=== PATIENT | female | born 1970 | race Caucasian/White ===

== ENCOUNTER 2021-11-26 10:36 | Outpatient (CLI) | payer OTHER, SELFPAY ==
--- NOTE | 2021-11-26 10:45 | CRLHL7_ITS ---
For Patients: As a result of the Cures Act, medical imaging exams and procedure reports are released immediately into your electronic medical record. You may view this report before your referring provider. If you have questions, please contact your health care provider. BILATERAL MAMMOGRAM WITH COMPUTER-AIDED DETECTION AND TOMOSYNTHESIS TECHNIQUE: CC and MLO views were obtained. These mammographic images have been obtained using full-field digital technique. These mammographic images were interpreted with the benefit of computer-aided detection. Breast Tomosynthesis was used in this interpretation. COMPARISON FILM: 11/07/2020, 09/20/2018. FINDINGS: There are scattered areas of fibroglandular density IMPRESSION: There is no radiographic evidence for malignancy. ASSESSMENT: BI-RADS Category 1: Negative RECOMMENDATION: Routine screening mammogram in 1 year. A lay language report of this examination will be provided to the patient. Remigio Saeed M.D. Diagnostic Radiologist [email or web address] RITA/duncan / be/Dictated by: Remigio Saeed MD @ 11/26/2021 12:18:00 PM (Electronically Signed)
== END 2021-11-26 10:37 | disposition home or self-care (01) ==
LOC: MAMMO 10:37
PROVIDERS: PCP Family Medicine; Visit Provider Family Medicine
DX: Z12.31 Encounter for screening mammogram for malignant neoplasm of breast (principal)
CPT/HCPCS: 77063; 77067

== ENCOUNTER 2021-12-18 15:06 | Outpatient (CLI) | payer OTHER, SELFPAY ==
[2021-12-18 11:14] LABS: Cholesterol* 195 mg/dL (90-199); Glucose* 99 mg/dL (60-115)
[2021-12-18 11:15] LABS: HDL Cholesterol* 39 mg/dL (>=50); LDL Cholesterol Calculated 130 mg/dL (<100); Triglycerides* 132 mg/dL (40-149)
[2021-12-18 11:34] LABS: Vitamin D 25 Hydroxy* 47 ng/mL (30-80)
[2021-12-18 12:33] LABS: Free T4 Free Thyroxine* 0.92 ng/dL (0.70-1.85)
== END 2021-12-18 15:07 | disposition home or self-care (01) ==
PROVIDERS: PCP Family Medicine; Visit Provider Family Medicine
DX: Z01.419 Encounter for gynecological examination (general) (routine) without abnormal findings (principal); E03.9 Hypothyroidism, unspecified; E55.9 Vitamin D deficiency, unspecified; Z13.1 Encounter for screening for diabetes mellitus; R53.83 Other fatigue; G25.81 Restless legs syndrome; E66.9 Obesity, unspecified
CPT/HCPCS: 80061; 82306; 82947; 84439; 84443

== ENCOUNTER 2022-02-24 08:27 | Outpatient (CLI) | payer OTHER, SELFPAY ==
[2022-02-24 21:58] LABS: Free T4 Free Thyroxine* 1.47 ng/dL (0.70-1.85)
== END 2022-02-24 08:28 | disposition home or self-care (01) ==
PROVIDERS: PCP Family Medicine; Visit Provider Family Medicine
DX: E89.0 Postprocedural hypothyroidism (principal); R53.83 Other fatigue
CPT/HCPCS: 84439; 84443

== ENCOUNTER 2022-03-02 15:59 | Outpatient (CLI) | payer OTHER, SELFPAY ==
--- OUTSIDE RECORDS SUMMARY | 2022-03-02 16:08 | XMS_ITS | Encounter Summary ---
:[address] [facility] Address [address] [place] [address] Care Team Providers Name Role Phone Unavailable Primary Care Provider Unavailable Encounter Details Date Type Department Care Team Description 05/16/2020 Hospital Encounter Department of Kriss, Hypoth yroidism Primary Laboratory Claritza Venegas Medicine in M.B., B.[facility] [place], [address] [place], [place] [address] ANDREA GRANADOS [phone] (Work) [phone] Social History Tobacco Use Types Packs/Day Years Used Date Smoking Tobacco: Never Smokeless Tobacco: Never Alcohol Use Standard Drinks/Week Comments Yes 0 (1 standard drink = 0.6 oz pure alcoho l) 1 glass of wine monthly Alcohol Habits Answer Date Recorded How often do you have a drink containing alcohol? Monthly or less 06/09/2021 How many drinks containing alcohol do you have on a 1 or 2 06/09/2021 typical day when you are drinking? How often do you have six or more drinks on one Never 06/09/2021 occasion? Social Isolation Answer Date Recorded In a typical week, how many times do you More than three madison es a week 06/09/2021 talk on the phone with family, friends, or neighbors? How often do you get together with friends Once a week 06/09/2021 or relatives? How often do you attend yarsanism or Patient refused 2021 oriental orthodox services? Do you belong to any clubs or No 06/09/2021 organizations such as yarsanism groups, unions, fraternal or athletic groups, or school groups? How often do you attend meetings of the Never 06/09/2021 clubs or organizations you belong to? Are you now , , , Living with partner 06/09/2021 , never or living with a partner? Physical Activity Answer Date Recorded On average, how many days per week do you engage in moderate to 3 days 06/09/2021 strenuous exercise (like walking fast, running, jogging, dancing, swimming, biking, or other activities that cause a light or heavy sweat)? On average, how many minutes do you engage in exercise at is 20 min 06/09/2021 level? Stress Answer Date Recorded Do you feel stress - tense, restless, nervous, or anxious, R ather much 06/09/2021 or unable to sleep at night because your mind is troubled all the time - these days? Financial Resource Strain Answer Date Recorded How hard is it for you to pay for the very basics like Not h bhavana at all 06/09/2021 food, housing, medical care, and heating? Intimate Partner Violence Answer Date Recorded Within the last year, have you been afraid of your partner o r No 06/09/2021 ex-partner? Within the last year, have you been humiliated or emotionall y No 06/09/2021 abused in other ways by your partner or ex-partner? Within the last year, have you been kicked, hit, slapped, or No 06/09/2021 otherwise physically hurt by your partner or ex-partner? Within the last year, have you been raped or forced to have any No 06/09/2021 kind of sexual activity by your partner or ex-partner? Food Insecurity Answer Date Recorded Within the past 12 months, you worried that your food would Never true 06/09/2021 run out before you got money to buy more. Within the past 12 months, the food you bought just didn't N ever true 06/09/2021 last and you didn't have money to get more. Transportation Needs Answer Date Recorded In the past 12 months, has lack of transportation kept you f rom No 06/09/2021 medical appointments or from getting medications? In the past 12 months, has lack of transportation kept you f rom No 06/09/2021 meetings, work, or getting things needed for daily living? Housing Stability Answer Date Recorded In the last 12 months, was there a time when you were not ab le No 06/09/2021 to pay the mortgage or rent on time? In the last 12 months, how many places have you lived? 1 06/09/2021 In the last 12 months, was there a time when you did not hav e a No 06/09/[address] to sleep or slept in a penitentiary (including now)? Education Answer Date Recorded What is the highest level of school Master's degree (e.g., M A, MS, 12/27/2018 you have completed or the highest Phil, MEd, PATIENT ESCORT, FALGUNI) degree you have received? 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 calcium carbonate Take 1,000 mg by 0 06/06/2019 (OS-ANUJ) 1,250 mg (500 mouth every 8 mg calcium) tablet (eight) hours. cholecalciferol, vitamin Take 1,000 Units by 0 D3, 25 mcg (1,000 Unit) mouth daily. tablet SUMAtriptan (IMITREX) TAKE 1/2 TO 1 TAB 5 019 100 mg tablet AT START OF HEADACHE MAY REPEAT ONCE IN 2 HOURS USE NO MORE THAN TWO DAYS A WEEK UNABLE TO FIND Med Name: Stool 0 softer daily. gabapentin (NEURONTIN) Take 1 capsule (100 270 capsule 3 01/06/2022 100 mg capsule mg total) by mouth 3 (three) times a day. levothyroxine Take 1 tablet (100 90 tablet 3 03/13/2020 (SYNTHROID, LEVOTHROID) mcg total) by mouth 100 mcg tablet every morning before breakfast. topiramate (TOPAMAX) 100 Take 1 tablet (100 180 tablet 3 07/07/2021 mg tablet mg total) by mouth 2 (two) times a day. documented as of this encounter Plan of Treatment Not on filedocumented as of this encounter Procedures Procedure Name Priority Date/Time Associated Diagnosis Comme nts THYROID-STIMULATIN Routine 05/16/2020 10:02 Hypothyroidism Radha everett Results for this G AM AGRICULTURAL SPECIALIST procedure are i n HORMONE-SENSITIVE the result s (S-TSH) section. documented in this encounter Results S-TSH (Thyroid-Stimulating Hormone - Sensitive) (05/16/2020 10:02 AM AGRICULTURAL SPECIALIST) P athologist Signature TSH, Sensitive 2.5 0.3 - 4.2 05/16/2020 [place] mIU/L 10:32 AM AGRICULTURAL SPECIALIST Specimen Anatomical Collection Method Collection Time Receive d Time (Source) Location / / Volume Laterality Blood (Blood, 05/16/2020 10:02 05/16/2020 Venous) AM AGRICULTURAL SPECIALIST 10:04 AM AGRICULTURAL SPECIALIST Claritza Fallon, B.Ch. LAB BLOOD ADD-ON Performing Organization Address City/State/ZIP Code Phon e Number [facility]- [address] [place] [address] [place] [address] System in [place] [address] documented in this encounter Visit Diagnoses Diagnosis Hypothyroidism Primary documented in this encounter
--- OUTSIDE RECORDS SUMMARY | 2022-03-02 16:08 | XMS_ITS | Encounter Summary ---
:1970 Author Organization [facility] Address [address] [place] [address] Care Team Providers Name Role Phone Unavailable Primary Care Provider Unavailable Encounter Details Date Type Department Care Team Description 06/10/2021 Hospital Encounter Department of Candi Ornelas Restless Leg Syndrome Laboratory Medicine Alex Jackson, in [place] [id number] [place] [phone] Social History Tobacco Use Types Packs/Day Years [...] or relatives? How often do you attend sabianist or Patient refused 2021 synagogue services? Do you belong to any clubs or No 06/09/2021 organizations such as sabianist groups, unions, fraternal or athletic groups, or [...] place to sleep or slept in a usp (including now)? Education Answer Date Recorded What is the highest level of school Master's degree (e.g., M A, MS, 12/27/2018 you have completed or the highest Phil, MEd, AUDIT TECH, FALGUNI) degree you have received? 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 tablet docusate sodium (COLACE) Take 100 mg by 0 100 mg capsule mouth. pregabalin (LYRICA) 100 Take 1 capsule (100 180 capsule 1 06/17/2022 mg capsule mg total) by mouth 2 (two) times a day. SUMAtriptan (IMITREX) TAKE 1/2 TO 1 TAB 5 019 100 mg tablet AT START OF HEADACHE MAY REPEAT ONCE IN 2 HOURS USE NO MORE THAN TWO DAYS A WEEK SUMAtriptan (IMITREX) 25 Take 1 tablet (25 9 tablet 3 06/202106/10/2022 mg tablet mg total) by mouth as needed for migraine. May repeat dose once in 2 hours if migraine unresolved. Do not exceed 200 mg in 24 hours. UNABLE TO FIND Med Name: Stool 0 softer daily. gabapentin (NEURONTIN) Take 1 capsule (100 270 capsule 3 01/06/2022 100 mg capsule mg total) by mouth 3 (three) times a day. gabapentin enacarbil Take 1 tablet (600 30 tablet 11 022 06/17/2021 (HORIZANT) 600 mg ER mg total) by mouth tablet daily with dinner. levothyroxine TAKE 1 TABLET BY 90 tablet 3 02/27/202112/07 (SYNTHROID, LEVOTHROID) MOUTH EVERY MORNING 100 mcg tablet BEFORE BREAKFAST topiramate (TOPAMAX) 100 Take 1 tablet (100 180 tablet 3 07/07/2021 mg tablet mg total) by mouth 2 (two) times a day. documented as of this encounter Plan of Treatment Not on filedocumented as of this encounter Procedures Procedure Name Priority Date/Time Associated Diagnosis Comme nts FERRITIN, S Routine 06/10/2021 10:55 AM Restless Leg Syndrome Results for this HANDLE BENDER procedure are i n the results section . documented in this encounter Results Ferritin (06/10/2021 10:55 AM HANDLE BENDER) P athologist Signature Ferritin, S 249 11 - 328 06/10/2021 [place] mcg/L 1:37 PM HANDLE BENDER Comment: Biotin has been identified by the gigi gregory as a potential interfering substance. ??Higher concentr ations of biotin may be found in multivitamins, hair/nail supple ments, and workout supplements. ??If the result does not ma [facility] clinical observations, repeat testing after patient refrains fr om the use of supplements for at least 12 hours. Specimen Anatomical Collection Method Collection Time Receive d Time (Source) Location / / Volume Laterality Blood (Blood, 06/10/2021 10:55 06/10/2021 Venous) AM HANDLE BENDER 12:55 PM HANDLE BENDER Candi Ornelas M.D., M.P.H. LAB BLOOD ADD-ON Performing Organization Address City/State/ZIP Code Phon e Number [facility]- [address] [place] [address] [facility] [place] [address] System in [place] [address] documented in this encounter Visit Diagnoses Diagnosis Restless Leg Syndrome documented in this encounter
--- OUTSIDE RECORDS SUMMARY | 2022-03-02 16:08 | XMS_ITS | Encounter Summary ---
:1970 Author Organization [facility] Address [address] [place] [address] Care Team Providers Name Role Phone Unavailable Primary Care Provider Unavailable Encounter Details Date Type Department Care Team Description 03/13/2020 Orders Only Division of Keri Monterroso Primary Endocrinology in Vasyl Camarena, (Prima ry Dx) [place], [place] B.Ch. [address] [facility] [address] [place] [phone] Social History Tobacco Use Types Packs/Day Years [...] or relatives? How often do you attend holiness or Patient refused 2021 judaism services? Do you belong to any clubs or No 06/09/2021 organizations such as holiness groups, unions, fraternal or athletic groups, or [...] minutes do you engage in exercise at th is 20 min 06/09/2021 level? Stress Answer [...] highest level of school Master's degree (e.g., Victorina Hernandez, MS, 12/27/2018 you have completed or the highest Phil, MEd, DIRECTOR OF AVIATION, FALGUNI) degree you have received? 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
--- OUTSIDE RECORDS SUMMARY | 2022-03-02 16:08 | XMS_ITS | Encounter Summary ---
:1970 Author Organization [facility] Address [address] [place] [address] Care Team Providers Name Role Phone Unavailable Primary Care Provider Unavailable Reason for Visit Reason Comments Med Refill Encounter Details Date Type Department Care Team Description 01/05/2022 Refill Department of Neurology in Candi Ornelas M.D., Med Refill [place], [place] [facility] [address] [facility] [address] [place] [address] [place] [address] (Wo rk) Social History Tobacco Use Types Packs/Day Years [...] or relatives? How often do you attend roman catholic or Patient refused 2021 restoration services? Do you belong to any clubs or No 06/09/2021 organizations such as roman catholic groups, unions, fraternal or athletic groups, or [...] place to sleep or slept in a skilled nursing (including now)? Education Answer Date Recorded What is the highest level of school Master's degree (e.g., Victorina Hernandez, MS, 12/27/2018 you have completed or the highest Phil, MEd, BICYCLE DESIGNER, FALGUNI) degree you have received? 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
--- OUTSIDE RECORDS SUMMARY | 2022-03-02 16:08 | XMS_ITS | Encounter Summary ---
:1970 Author Organization [facility] Address [address] [place] [address] Care Team Providers Name Role Phone Unavailable Primary Care Provider Unavailable Reason for Visit Reason Comments Med Refill Encounter Details Date Type Department Care Team Description 12/04/2021 Refill Division of Endocrinology in Claritza Toth Med Refill [place], [place] Vasyl Venegas, B.Ch. [address] [facility] [address] [place] [address] [place] [address] [phone] (Wo rk) Social History Tobacco Use Types [...] or relatives? How often do you attend mormon or Patient refused 2021 yazidi services? Do you belong to any clubs or No 06/09/2021 organizations such as mormon groups, unions, fraternal or athletic groups, or [...] have completed or the highest Phil, MEd, FORESTRY SUPERVISOR, FALGUNI) degree you have received? 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 - 12/08/2021 10:45 AM CDT Will give 3 months but no refills. She needs to get from her local care team thanks Telephone Encounter - Su Martin R.N. - 12/07/2021 1:21 PM CDT Prescription renewal request did not meet nurse protocol because: patient has not been seen within the past 12 months in the Department of Endocrinology . Prescription refill request sent to Endocrine provider for further review. Protocol utilized: Prescription Renewal Request for Medications: Division of Endocrinology, Diabetes, Metabolism and Nutrition. documented in this encounter Plan of Treatment Not on filedocumented as of this encounter Visit Diagnoses Not on filedocumented in this encounter
--- OUTSIDE RECORDS SUMMARY | 2022-03-02 16:08 | XMS_ITS | Encounter Summary ---
:1970 Author Organization [facility] Address [address] [place] [address] Care Team Providers Name Role Phone Unavailable Primary Care Provider Unavailable Reason for Referral Outpatient (Routine) - Authorized Specialty Diagnoses / Procedures Referred By Contact Refer red To Contact Neurology Candi Ornelas M.D ., M.P.H. [facility] [address] [phone] Referral ID Status Reason Start Date Expiration Date Visits V isits Requested Authorized [id number] Authorized 06/10/2021 06/10/2022 1 1 AL DESIGNER Reason for Visit Reason Comments Seizures Sleeping Problem Restless Legs Last visit 04/23/20 Outpatient (Routine) - Closed Specialty Diagnoses / Procedures Referred By Contact Refer red To Contact Neurology Candi Ornelas M.D ., M.P.H. [facility] Region [address] [place] [phone] Referral ID Status Reason Start Date Expiration Date Visits Requ ested Visits Authorized [id number] Closed 04/23/2020 04/23/2021 1 1 Encounter Details Date Type Department Care Team Description 06/10/2021 Office Visit Department of Candi Ornelas, Restless L eg Syndrome Neurology in [place], M.P.H. (Primary Dx) [address] [phone] Social History Tobacco Use Types Packs/Day Years [...] or relatives? How often do you attend latter day or Patient refused 2021 taoism services? Do you belong to any clubs or No 06/09/2021 organizations such as latter day groups, unions, fraternal or athletic groups, or [...] place to sleep or slept in a residential (including now)? Education Answer Date Recorded What is the highest level of school Master's degree (e.g., M A, MS, 12/27/2018 you have completed or the highest Phil, MEd, INTERVENTIONAL CARDIOLOGIST, FALGUNI) degree you have received? 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 - 06/10/2021 10:15 AM CST Sleep [facility] SUBJECTIVE HISTORY OF PRESENT ILLNESS Patient presents with complaints of restless feet. She says that shortly after going to bed her feether restless and she has to move them or get up and walk. She says she may get the sleep and then attwo or 3:00 a.m. wake up and have the same compulsion. The gabapentin 100 mg, three q.h.s. helps buttraci says if she took four she felt irritable and crabby the next day. I spent a long time reviewing treatment options for a her restless leg symptoms. Reviewed the dopamine agonists and the of two delta calcium channel likens as well as benzodiazepines and opioid options. Her last ferritin was certainly adequate but it was two years ago. Last ferritin was 194 two years ago. MEDICAL HISTORY No past medical history on file. SURGICAL HISTORY No past surgical history on file. CURRENT MEDICATIONS Current Outpatient Medications: ??? B complex-vitamins (BALANCE B-50) tablet, Take 1 tablet by mouth daily., Disp: , Rfl: ??? calcium carbonate (OS-ANUJ) 1,250 mg (500 mg calcium) tablet, Take 1,000 mg by mouth every 8 (eight) hours., Disp: , Rfl: ??? cholecalciferol, vitamin D3, 25 mcg (1,000 Unit) tablet, Take 1,000 Units by mouth daily., Disp:, Rfl: ??? docusate sodium (COLACE) 100 mg capsule, Take 100 mg by mouth., Disp: , Rfl: ??? gabapentin (NEURONTIN) 100 mg capsule, Take 1 capsule (100 mg total) by mouth 3 (three) times a day., Disp: 270 capsule, Rfl: 3 ??? levothyroxine (SYNTHROID, LEVOTHROID) 100 mcg tablet, TAKE 1 TABLET BY MOUTH EVERY MORNING BEFORE BREAKFAST, Disp: 90 tablet, Rfl: 3 ??? SUMAtriptan (IMITREX) 100 mg tablet, TAKE 1/2 TO 1 TAB AT START OF HEADACHE MAY REPEAT ONCE IN 2HOURS USE NO MORE THAN TWO DAYS A WEEK, Disp: , Rfl: 5 ??? UNABLE TO FIND, Med Name: Stool softer daily., Disp: , Rfl: ??? gabapentin enacarbil (HORIZANT) 600 mg ER tablet, Take 1 tablet (600 mg total) by mouth daily with dinner., Disp: 30 tablet, Rfl: 11 ??? SUMAtriptan (IMITREX) 100 mg tablet, Take 1 tablet (100 mg total) by mouth once as needed for migraine (headache) for up to 1 dose. May repeat one time after 2 hours if needed., Disp: 9 tablet, Rfl: 5 ??? SUMAtriptan (IMITREX) 25 mg tablet, Take 1 tablet (25 mg total) by mouth as needed for migraine.May repeat dose once in 2 hours if migraine unresolved. Do not exceed 200 mg in 24 hours., Disp: 9 tablet, Rfl: 3 ??? topiramate (TOPAMAX) 100 mg tablet, Take 1 tablet (100 mg total) by mouth 2 (two) times a day., Disp: 180 tablet, Rfl: 3 ALLERGIES Allergies Allergen Reactions ??? Cortisone Other (see comments) ??? Betamethasone Other (see comments) Severe Stomach cramps ??? Nickel Rash ??? Corticosteroids (Glucocorticoids) Rash Turned bright red all over body ??? Green Tea [place] Extract Rash Burning rash ??? Naproxen Rash rash FAMILY HISTORY No family history on file. SOCIAL HISTORY Social History Socioeconomic History ??? Marital status: Spouse name: Not on file ??? Number of children: Not on file ??? Years of education: Not on file ??? Highest education level: Master's degree (e.g., MA, MS, Phil, MEd, INTERVENTIONAL CARDIOLOGIST, FALGUNI) Occupational History ??? Not on file Tobacco Use ??? Smoking status: Never Smoker ??? Smokeless tobacco: Never Used Substance and Sexual Activity ??? Alcohol use: Yes Comment: 1 glass of wine monthly ??? Drug use: Not on file ??? Sexual activity: Not on file Other Topics Concern ??? Not on file Social History Narrative ??? Not on file Social Determinants of Health Financial Resource Strain: Low Risk ??? Difficulty of Paying Living Expenses: Not hard at all Food Insecurity: No Food Insecurity ??? Worried About Running Out of Food in the Last Year: Never true ??? Ran Out of Food in the Last Year: Never true Transportation Needs: No Transportation Needs ??? Lack of Transportation (Medical): No ??? Lack of Transportation (Non-Medical): No Physical Activity: Insufficiently Active ??? Days of Exercise per Week: 3 days ??? Minutes of Exercise per Session: 20 min Stress: Stress Concern Present ??? Feeling of Stress : Rather much Social Connections: Unknown ??? Frequency of Communication with Friends and Family: More than three times a week ??? Frequency of Social Gatherings with Friends and Family: Once a week ??? Attends Confucianist Services: Patient refused ??? Active Member of Clubs or Organizations: No ??? Attends Club or Organization Meetings: Never ??? Marital Status: Living with partner Intimate Partner Violence: Not At Risk ??? Fear of Current or Ex-Partner: No ??? Emotionally Abused: No ??? Physically Abused: No ??? Sexually Abused: No Housing Stability: Low Risk ??? Unable to Pay for Housing in the Last Year: No ??? Number of Places Lived in the Last Year: 1 ??? Unstable Housing in the Last Year: No OBJECTIVE PHYSICAL EXAMINATION BP 111/80 (BP Location: Right arm, Patient Position: Sitting, Cuff Size: Regular) Pulse 74 Wt 85.6 kg SpO2 98% Comment: room air Lungs: Clear Neurological Exam Cognition: Alert and oriented x 4. Cranial Nerves: II-XII intact and symmetric. Gait: Normal. ASSESSMENT / PLAN Encounter Diagnoses Name Primary? Restless Leg Syndrome Yes Patient seems have restless leg symptoms and I wonder if we could not try extended-release gabapentin and get better control without waking up in the middle the night. I told her that I would really like to try this again because the options otherwise usually result in more side effects than the gabapentin. So were going to do one month of Horizant and see how she does in if she likes that then I will give her three months worth. If this does not work then I think will probably try pramipexole or a Relpax. I personally spent 30 minutes in care of the patient today. Time includes both non face to face and face to face patient care. Patient was counseled regarding weight as a risk factor for sleep disordered breathing. The patient was counseled on driving while drowsy. Candi Ornelas M.D., M.P.H. AL DESIGNER documented in this encounter Plan of Treatment Scheduled Referrals Name Type Priority Associated Diagnoses Order S [facility] Neurology office Outpatient Referral Routine Expe cted: visit (clinic) 09/07/2021 (Approximate), Expires: 09/07/2022 documented as of this encounter Results Ferritin (06/10/2021 10:55 AM VISUAL DESIGNER) P athologist Signature Ferritin, S [phone] - 328 06/10/2021 OWAT mcg/L 1:37 PM VISUAL DESIGNER Comment: Biotin has been identified by the [...] Blood (Blood, 06/10/2021 10:55 06/10/2021 Venous) AM VISUAL DESIGNER 12:55 PM VISUAL DESIGNER Candi Ornelas M.D., M.P.H. LAB BLOOD ADD-ON Performing Organization Address City/State/ZIP Code Phon e Number [facility]- [address] [place] [address] [place] [address] System in [place] [address] documented in this encounter Visit Diagnoses Diagnosis Restless Leg Syndrome - Primary documented in this encounter
--- OUTSIDE RECORDS SUMMARY | 2022-03-02 16:08 | XMS_ITS | Encounter Summary ---
:1970 Author Organization [facility] Address [address] [place] [address] Care Team Providers Name Role Phone Unavailable Primary Care Provider Unavailable Reason for Visit Reason Comments Med Refill Encounter Details Date Type Department Care Team Description 03/24/2020 Refill Department of Neurology in Candi Ornelas M.D., Med Refill [place], [place] M.P.H. [address] [facility] [address] [place] [address] [place] [address] (Wo rk) Social History Tobacco [...] or relatives? How often do you attend christianity or Patient refused 2021 judaism services? Do you belong to any clubs or No 06/09/2021 organizations such as christianity groups, unions, fraternal or athletic groups, or [...] have completed or the highest Phil, MEd, RUBBER GOODS CUTTER FINISHER, FALGUNI) degree you have received? 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
--- OUTSIDE RECORDS SUMMARY | 2022-03-02 16:08 | XMS_ITS | Encounter Summary ---
:1970 Author Organization [facility] Address [address] [place] [address] Care Team Providers Name Role Phone Unavailable Primary Care Provider Unavailable Reason for Referral Outpatient (Routine) - Closed Specialty Diagnoses / Procedures Referred By Contact Refer red To Contact Neurology Candi Ornelas M.D ., M.P.H. [facility] [address] [phone] Referral ID Status Reason Start Date Expiration Date Visits Requ ested Visits Authorized [id number] Closed 03/29/2019 03/28/2020 1 1 L FOOD SERVICE SUPERVISOR Reason for Visit Reason Comments Follow-up Restless legs, seizures, hea daches. Last seen 12/27/18 Outpatient (Routine) - Closed Specialty Diagnoses / Procedures Referred By Contact Refer red To Contact Neurology Candi Ornelas M.D ., M.P.H. [facility] Region [address] [place] [phone] Referral ID Status Reason Start Date Expiration Date Visits Requ ested Visits Authorized [id number] Closed 12/27/2018 12/27/2019 1 1 Encounter Details Date Type Department Care Team Description 03/29/2019 Office Visit Department of Candi Ornelas, Wendyless L eg Syndrome (Primary Dx); Neurology in [place], M.P.H. 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 Do you belong to any clubs [...] place to sleep or slept in a retirement (including now)? Education Answer Date Recorded What is the highest level of school Master's degree (e.g., M A, MS, 12/27/2018 you have completed or the highest Phil, MEd, PONY ROLL FINISHER, FALGUNI) degree you have received? 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 - 03/29/2019 2:15 PM CST SUBJECTIVE CHIEF COMPLAINT / REASON FOR VISIT Coretta Monaco is a 48 y.o. female who presents for evaluation of Follow-up (Restless legs, seizures, headaches. Last seen 12/27/18). HISTORY OF PRESENT ILLNESS 48-year-old patient has a history of gelastic seizures and migraine headaches and restless leg symptoms. She has remained seizure-free now for very extended period time and certainly been seizure-free since her last visit. She is on topiramate monotherapy and I detailed my previous visit that she had seen Dr. Real he would attempt to treated with lamotrigine. I do not have any EEGs although and she had some in the [facility]. I had given her gabapentin 100 mg to take t.i.d. but it makes her too sleepy during the day so she takes all 300 at bedtime. With that she does not have symptoms of restless legs at all. I checked her ferritin him was almost 200 the last visit. She has Imitrex 100 mg and she can take half a tablet initially in increased to one tablet if some she needs to but she has had be very few headaches in is taken very little Imitrex and does not need arefill at today's visit. 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 She has some lymph nodes in her neck is going to go have those removed apparently the next 3-4 weeks. Her [place] sleepiness Score today is six and her Neurological Disorders Depression Inventory for Epilepsy score is 10 No past medical history on file. No past surgical history on file. MEDICATIONS: Current Outpatient Medications: ??? B complex-vitamins (BALANCE B-50) tablet, Take 1 tablet by mouth daily., Disp: , Rfl: ??? cholecalciferol, vitamin D3, (cholecalciferol) 1,000 Unit tablet, Take 1,000 Units by mouth daily., Disp: , Rfl: ??? gabapentin (NEURONTIN) 100 mg capsule, Take 1 capsule (100 mg total) by mouth 3 (three) times a day., Disp: 90 capsule, Rfl: 11 ??? phentermine (ADIPEX-P) 37.5 mg tablet, Take 37.5 mg by mouth daily. Patient is taking 1/2 tabletdaily., Disp: , Rfl: 0 ??? SUMAtriptan (IMITREX) 100 mg tablet, TAKE 1/2 TO 1 TAB AT START OF HEADACHE MAY REPEAT ONCE IN 2HOURS USE NO MORE THAN TWO DAYS A WEEK, Disp: , Rfl: 5 ??? topiramate (TOPAMAX) 100 mg tablet, Take 1 tablet (100 mg total) by mouth 2 (two) times a day., Disp: 180 tablet, Rfl: 3 ??? UNABLE TO FIND, Med Name: Stool softer daily., Disp: , Rfl: ??? SUMAtriptan (IMITREX) 100 mg tablet, Take 1 tablet (100 mg total) by mouth once as needed for migraine (headache) for up to 1 dose. May repeat one time after 2 hours if needed., Disp: 9 tablet, Rfl: 5 ALLERGY: Allergies Allergen Reactions ??? Cortisone Other (see comments) ??? Nickel Rash ??? Corticosteroids (Glucocorticoids) Rash Turned bright red all over body ??? Green Tea [place] Extract Rash Burning rash ??? Naproxen Rash rash No family history on file. Social History Socioeconomic History ??? Marital status: Spouse name: Not on file ??? Number of children: Not on file ??? Years of education: Not on file ??? Highest education level: Master's degree (e.g., MA, MS, Phil, MEd, PONY ROLL FINISHER, FALGUNI) Occupational History ??? Not on file Social Needs ??? Financial resource strain: Not hard at all ??? Food insecurity: Worry: Never true Inability: Never true ??? Transportation needs: Medical: No Non-medical: Not on file Tobacco Use ??? Smoking status: Never Smoker ??? Smokeless tobacco: Never Used Substance and Sexual Activity ??? Alcohol use: Yes Frequency: Monthly or less Drinks per session: 1 or 2 Comment: 1 glass of wine monthly ??? Drug use: Not on file ??? Sexual activity: Not on file Lifestyle ??? Physical activity: Days per week: Not on file Minutes per session: Not on file ??? Stress: Not on file Relationships ??? Social connections: Talks on phone: Three times a week Gets together: More than three times a week Attends shinto service: 1 to 4 times per year Active member of club or organization: Yes Attends meetings of clubs or organizations: More than 4 times per year Relationship status: Not on file ??? Intimate partner violence: Fear of current or ex partner: Not on file Emotionally abused: Not on file Physically abused: Not on file Forced sexual activity: Not on file Other Topics Concern ??? Not on file Social History Narrative ??? Not on file OBJECTIVE Vitals: 03/29/19 1415 BP: 119/78 BP Location: Left arm Patient Position: Sitting Cuff Size: Regular Pulse: 87 Weight: 80.5 kg PHYSICAL EXAM COGNITION: Alert and oriented x 4. Unable to palpate three different masses in her neck him most prominent is on the right side above and lateral to her thyroid. CRANIAL NERVES: ecological economist II-XII intact and symmetric. MOTOR: Full strength throughout the upper and lower extremities bilaterally both proximally and distally. Normal tone. No pronator drift. No tremor. REFLEXES: Normal and symmetric at the biceps, triceps, brachioradialis, knees, and ankles. SENSORY: normal sensation to touch CEREBELLAR: ARMs-normal GAIT: Normal Impression: Encounter Diagnoses Name Primary? Restless Leg Syndrome Yes ??? 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 Migraine Headache Her restless legs are well treated and so I am not going to change therapy. Her headaches are also well managed perhaps the topiramate for her seizures is due been effective atprophylactic therapy for her headaches. The seizures are also well controlled. She said she had an episode when she was talking and she was naming the months in sequence but left one month out. She does not have any episodes of loss of consciousness no episodes of laughing. I quite sure that she has not had a seizure in the last year as shehas not had any of the typical symptoms. Not going to change her therapy and I will plan to see her back in a year as she is doing very well today. Total time with the patient today was 25 minutes and more than half was counseling. Candi Ornelas M.D., M.P.H. 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
--- OUTSIDE RECORDS SUMMARY | 2022-03-02 16:08 | XMS_ITS | Encounter Summary ---
:1970 Author Organization [facility] Address [address] [place] [address] Care Team Providers Name Role Phone Unavailable Primary Care Provider Unavailable Encounter Details Date Type Department Care Team Description 12/31/2019 Clinical Communication Division of [facility], Endocrinology in Vas[place], [place], [place] B.Ch. [address] [place] [address] [address] [place] [phone] Social History Tobacco Use Types Packs/Day Years [...] or relatives? How often do you attend scientology or Patient refused 2021 faith services? Do you belong to any clubs or No 06/09/2021 organizations such as scientology groups, unions, fraternal or athletic groups, or [...] place to sleep or slept in a halfway (including now)? Education Answer Date Recorded What is the highest level of school Master's degree (e.g., M A, MS, 12/27/2018 you have completed or the highest Phil, MEd, CARPENTER ASSISTANT INSTALLER, FALGUNI) degree you have received? 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 - 01/10/2020 10:11 AM CDT Kvng Coulter. Go ahead and schedule. Thank you!! Telephone Encounter - Marylin Ness - 01/09/2020 1:55 PM CDT My understanding is endocrinology is not seeing out referrals and this patient has only seen Dr. Ornelas in neurology in [place]. Please advise. Telephone Encounter - Huma Byrnes L.P.N. - 12/31/2019 2:02 PM CDT Kvng Coulter. I called this patient and she is willing to wait a few months to see Dr. Monterroso for a new consult. Will you put her on the new consult list? Thank you!!. Telephone Encounter - Lin Shi - 12/31/2019 10:54 AM CDT Reason for Communication: Patient currently sees endocrinology at [facility] for thyroid issues. Patient had her thyroid removed at the beginning of all of COVID-19 and states he had a terrible experience and does not want to be seen there again. Current Can Nursing/Provider leave a detailed message?: yes Did the patient refuse triage through Nurse line? (for symptom based concerns): Action Needed: Please advise if this patient can follow up with endo in [place]. Name of Medication (if relevant): documented in this encounter Plan of Treatment Not on filedocumented as of this encounter Visit Diagnoses Not on filedocumented in this encounter
--- OUTSIDE RECORDS SUMMARY | 2022-03-02 16:08 | XMS_ITS | Encounter Summary ---
:1970 Author Organization [facility] Address [address] [place] [address] Care Team Providers Name Role Phone Unavailable Primary Care Provider Unavailable Reason for Visit Reason Comments Med Refill Encounter Details Date Type Department Care Team Description 06/10/2021 Refill Department of Neurology in Candi Ornelas M.D., Med Refill [place], [place] M.P.H. [address] [facility] [address] [place] [address] [place] [address] (Wo rk) Social History Tobacco [...] or relatives? How often do you attend bahai or Patient refused 2021 mormonism services? Do you belong to any clubs or No 06/09/2021 organizations such as bahai groups, unions, fraternal or athletic groups, or [...] place to sleep or slept in a longterm (including now)? Education Answer Date Recorded What is the highest level of school Master's degree (e.g., Victorina Hernandez, MS, 12/27/2018 you have completed or the highest Phil, MEd, LASTER HAND, FALGUNI) degree you have received? 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
--- OUTSIDE RECORDS SUMMARY | 2022-03-02 16:08 | XMS_ITS | Clinical Summary ---
:1970 Author Organization [facility] Address [address] [place] [address] Care Team Providers Name Role Phone Unavailable Primary Care Provider Unavailable Source Comments Patient records contain information from all sites at [facility]. For routine questions regarding patient records, call [phone] during business hours, M-F 8:00 AM - 5:00 PM Central Time. Record requests for emergency care only can be directed to [phone] at any time.[facility] Allergies Active Allergy Reactions Severity Noted Date Comments Betamethasone Other (see comments) 06/04/2019 Severe Stomach cramps Corticosteroids Rash Low 02/21/2019 Turned brigh t red (Glucocorticoids) all over b jerry Cortisone Other (see comments) High 12/27/2018 Green Tea [place] Extract Rash Low 02/21/2019 Burni ng rash Naproxen Rash Low 02/21/2019 rash Nickel Rash 12/27/2018 Medications Medication Sig Dispensed Refills Start Date End Date Status SUMAtriptan TAKE 1/2 TO 1 5 10/17/2018 Act lana (IMITREX) 100 mg TAB AT START OF tablet HEADACHE MAY REPEAT ONCE IN 2 HOURS USE NO MORE THAN TWO DAYS A WEEK cholecalciferol, Take 1,000 Units 0 Active vitamin D3, 25 mcg by mouth daily. (1,000 Unit) tablet B complex-vitamins Take 1 tablet by 0 Active (BALANCE B-50) mouth daily. tablet SUMAtriptan Take 1 tablet 9 tablet 5 12/27/2018 Act lana (IMITREX) 100 mg (100 mg total) tablet by mouth once as needed for migraine (headache) for up to 1 dose. May repeat one time after 2 hours if needed. UNABLE TO FIND Med Name: Stool 0 Active softer daily. docusate sodium Take 100 mg by 0 Active (COLACE) 100 mg mouth. capsule calcium carbonate Take 1,000 mg by 0 06/06/2019 Active (OS-ANUJ) 1,250 mg mouth every 8 (500 mg calcium) (eight) hours. tablet SUMAtriptan Take 1 tablet 9 tablet 3 06/10/2021 06/10/2022 Ac tive (IMITREX) 25 mg (25 mg total) by tablet mouth as needed for migraine. May repeat dose once in 2 hours if migraine unresolved. Do not exceed 200 mg in 24 hours. pregabalin (LYRICA) Take 1 capsule 180 capsule 1 06/17/2021 Active 100 mg capsule (100 mg total) by mouth 2 (two) times a day. 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 Med Refill 12/04/2021 Refill Endocrinology Claritza Monterroso M.B., B.Ch. Med Refill from Last 3 Months Social History Tobacco Use Types Packs/Day Years [...] or relatives? How often do you attend restorationist or Patient refused 2021 worship services? Do you belong to any clubs or No 06/09/2021 organizations such as restorationist groups, unions, fraternal or athletic groups, or [...] place to sleep or slept in a nursing home (including now)? Education Answer Date Recorded What is the highest level of school Master's degree (e.g., Victorina Hernandez, MS, 12/27/2018 you have completed or the highest Phil, MEd, RUBBER WASHER, FALGUNI) degree you have received? 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 Last Filed Vital Signs Vital Sign Reading Time Taken Comments Blood Pressure 111/80 06/10/2021 10:03 AM MEDICAL LABORATORY TECHNICAL OFFICER Pulse 74 06/10/2021 10:03 AM MEDICAL LABORATORY TECHNICAL OFFICER Temperature - - Respiratory Rate - - Oxygen Saturation 98% 06/10/2021 10:03 AM room air MEDICAL LABORATORY TECHNICAL OFFICER Inhaled Oxygen Concentration - - Weight 85.6 kg (188 lb 11.4 oz) 06/10/2021 10:03 AM MEDICAL LABORATORY TECHNICAL OFFICER Height - - Body Mass Index - - Plan of Treatment Health Maintenance Due Date Last Done Comments CT Colonography 1970 Cologuard 1970 Colonoscopy 1970 Colorectal Cancer Screening 1970 FIT 1970 HIV Screening 1970 Hepatitis C Screening 1970 Mammogram 1970 Hepatitis B Vaccines (3 of 04/30/2006 11/26/2005, 6 3 - Hep B Twinrix 3-dose series) Depression Screening 05/09/2021 (Annual PHQ-2) Thyroid Stimulating Hormone 05/16/2021 05/16/2020, 02/21/20 20 (TSH) test for thyroid function COVID-19 Vaccine (5 - 12/16/2021 10/21/2021, 04/13/2021, Booster for Moderna series) 07/11/2020, Addition al history exists Influenza Vaccine (#1) 2022 02/10/2021, 01/13/2020 Fasting Glucose for 06/06/2022 06/06/2019, 09/19/2018 Diabetes Screening Lipid (Cholesterol) 09/20/2023 09/19/2018 Screening DTaP,Tdap,and Td Vaccines 07/14/2025 07/15/2015, 05/09/2003 , (2 - Td or Tdap) 11/29/2002, Additional history exists Zoster Vaccines Completed 02/10/2021, 01/13/2020 Pneumococcal vaccine (0-64 Aged Out No lo nger eligible years) based on patient 's age to complete this topic Insurance Payer Benefit Plan / Subscriber ID Effective Dates Phone Addre ss Type Group MEDICA MEDICA [id number] 2019-Present [phone] [address] [address] [place] [address]
--- OUTSIDE RECORDS SUMMARY | 2022-03-02 16:08 | XMS_ITS | Encounter Summary ---
:1970 Author Organization [facility] Address [address] [place] [address] Care Team Providers Name Role Phone Unavailable Primary Care Provider Unavailable Reason for Referral Outpatient (Routine) - Closed Specialty Diagnoses / Procedures Referred By Contact Refer red To Contact Endocrinology Claritza Monterroso [facility] MPaul, B.Ch. [address] [place], [place] [phone] Referral ID Status Reason Start Date Expiration Date Visits Requ ested Visits Authorized [id number] Closed 02/21/2020 02/20/2021 1 1 Reason for Visit Reason Comments Consult Had Thyroid removed last Jun . Had 3 nodules. Appointment Request (Routine) - Closed Specialty Diagnoses / Procedures Referred By Contact Refer red To Contact Endocrinology Referral ID Status Reason Start Date Expiration Date Visits Requ ested Visits Authorized [id number] Closed 01/11/2020 01/10/2021 1 1 Encounter Details Date Type Department Care Team Description 02/21/2020 Comprehensive Visit Department of Abdiel Monterroso hyroidism Endocrinology in Albertina Camarena (Pr imary Dx) [place], [place] Vasyl, B.Ch. [address] [place] [phone] Social History Tobacco Use Types Packs/Day Years [...] or relatives? How often do you attend taoism or Patient refused 2021 christianity services? Do you belong to any clubs or No 06/09/2021 organizations such as taoism groups, unions, fraternal or athletic groups, or [...] place to sleep or slept in a correction (including now)? Education Answer Date Recorded What is the highest level of school Master's degree (e.g., M David, MS, 12/27/2018 you have completed or the highest Phil, MEd, CONSERVATION TECHNICIAN, FALGUNI) degree you have received? 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 - 02/21/2020 9:33 AM CDT SUBJECTIVE REASON FOR CONSULT Surgery-induced hypothyroidism. HISTORY OF PRESENT ILLNESS Ms. 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 Shehas had a diagnosis of multinodular, nontoxic goiter since at least 2011. She had nodules bilaterally, which had enlarged over time. Based on outside ultrasounds, the largest nodule on the right measured 2.8 cm with the largest on the left measuring 1.4 cm. These had been FNA'd in 2015 and were found to be benign. Due to the enlargement of the time, including compressive symptoms with dysphagia, she underwent a near-total thyroidectomy in May of 2019. 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 She is now taking levothyroxine 112 mcg daily. She had a dose decrease in October due tosuppressed TSH. She does feel that her temper is a little shorter currently, but no other adverse symptoms. She notes having normal function prior to the surgery, and has no history of radiation to the neck. There is no thyroid cancer in her family, but she does know paternal family members with thyroid issues. With respect to her levothyroxine, she takes this in the morning along with calcium. MEDICAL HISTORY 1. Migraines. 2. Focal epilepsy. 3. Restless legs. 4. Total abdominal hysterectomy without bilateral salpingo-oophorectomy. She does endorse some hot flashes. SOCIAL HISTORY No smoking with only occasional alcohol. She has 2 children and works as a consultant teacher. FAMILY HISTORY As per HPI. OBJECTIVE PHYSICAL EXAMINATION General: Ms. Monaco is pleasant, in no acute distress. Neck Exam: No abnormal lymph nodes. Well-healed scar. No residual thyroid tissue is noted. Lungs: Clear to auscultation bilaterally. Cardiovascular: Regular rate and rhythm. ASSESSMENT / PLAN #1 Nontoxic multinodular goiter, status post near-total thyroidectomy in 2019 for compressive symptoms and enlargement of nodules #2 Iatrogenic hypothyroidism We will plan to check her TSH and discuss dose adjustment once these results are available. She is taking her medication correctly. Neymar Waterman., B.Ch. CT CT Job ID: [id number] documented in this encounter Miscellaneous Notes Result Encounter Note - Claritza Monterroso M.B., B.Ch. - 03/13/2020 1:17 PM CST Discussed results.Will plan to decrease dose of levothyroxine to 100 mcg daily. Recheck TSH in 3 months EDGE MACHINE OPERATOR documented in this encounter Plan of Treatment Scheduled Referrals Name Type Priority Associated Order Schedule Diagnoses Endocrinology office Outpatient Referral Routine Expected: visit (clinic) 05/23/2020 (Approximate), Expires: 02/20/2023 documented as of this encounter Procedures Procedure Name Priority Date/Time Associated Diagnosis Comme nts THYROID-STIMULATIN Routine 02/21/2020 10:56 Hypothyroidism Radha karlos Results for this G AM CDT procedure are i n HORMONE-SENSITIVE the result s (S-TSH) section. documented in this encounter Results S-TSH (Thyroid-Stimulating Hormone - Sensitive) (05/16/2020 10:02 AM ROLL EDGE MACHINE OPERATOR) P athologist Signature TSH, Sensitive 2.5 0.3 - 4.2 05/16/2020 [place] mIU/L 10:32 AM ROLL EDGE MACHINE OPERATOR Specimen Anatomical Collection Method Collection Time Receive d Time (Source) Location / / Volume Laterality Blood (Blood, 05/16/2020 10:02 05/16/2020 Venous) AM ROLL EDGE MACHINE OPERATOR 10:04 AM ROLL EDGE MACHINE OPERATOR Claritza Fallon, B.Ch. LAB BLOOD ADD-ON Performing Organization Address City/State/ZIP Code Phon e Number [facility]- [address] [place] [address] [place] [address] System in [place] [address] S-TSH (Thyroid-Stimulating Hormone - Sensitive) (02/21/2020 10:56 AM CDT) P athologist Signature TSH, Sensitive 0.5 0.3 - 4.2 02/21/2020 [place] mIU/L 11:41 AM CDT Comment: Biotin has been identified by the gigi gregory as a potential interfering substance. ??Higher concentr ations of biotin may be found in multivitamins, hair/nail supple ments, and workout supplements. ??If the result does not [facility] clinical observations, repeat testing after patient refrains fr om the use of supplements for at least 12 hours. Specimen Anatomical Collection Method Collection Time Receive d Time (Source) Location / / Volume Laterality Blood (Blood, 02/21/2020 10:56 02/21/2020 Venous) AM CDT 11:09 AM CDT Claritza Fallon, B.Ch. LAB BLOOD ADD-ON Performing Organization Address City/State/ZIP Code Phon e Number [facility]- [address] [place] [address] [place] [address] System in [place] [address] documented in this encounter Visit Diagnoses Diagnosis Hypothyroidism Primary - Primary documented in this encounter
--- OUTSIDE RECORDS SUMMARY | 2022-03-02 16:08 | XMS_ITS | Encounter Summary ---
:1970 Author Organization [facility] Address [address] [place] [address] Care Team Providers Name Role Phone Unavailable Primary Care Provider Unavailable Encounter Details Date Type Department Care Team Description 03/03/2020 Clinical Communication Department of Family Elsewhere, Pcp Medicine, [facility], in [place], [place] [address] [place] [address] [facility] [phone] Social History Tobacco Use Types Packs/Day Years [...] or relatives? How often do you attend presybeterian or Patient refused 2021 quaker services? Do you belong to any clubs or No 06/09/2021 organizations such as presybeterian groups, unions, fraternal or athletic groups, or [...] place to sleep or slept in a half-way (including now)? Education Answer Date Recorded What is the highest level of school Master's degree (e.g., M A, MS, 12/27/2018 you have completed or the highest Phil, MEd, COBOL MAINFRAME DEVELOPER, FALGUNI) degree you have received? 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 - 03/03/2020 3:01 PM CDT Left message to call back. Telephone Encounter - Debra Brooks - 03/03/2020 1:32 PM CDT Reason for Communication: Pt called returning call to nurse about labs. Current Can Nursing/Provider leave a detailed message?: yes Did the patient refuse triage through Nurse line? (for symptom based concerns): na Action Needed: Please call back Name of Medication (if relevant): na documented in this encounter Plan of Treatment Not on filedocumented as of this encounter Visit Diagnoses Not on filedocumented in this encounter
--- OUTSIDE RECORDS SUMMARY | 2022-03-02 16:08 | XMS_ITS | Encounter Summary ---
:1970 Author Organization [facility] Address [address] [place] [address] Care Team Providers Name Role Phone Unavailable Primary Care Provider Unavailable Encounter Details Date Type Department Care Team Description 04/14/2020 Orders Only Department of [facility] Hypothyroidi sm Primary Endocrinology in Huma medeiros, (Primary Dx ) [place], [place] L.P.N. [address] [place] [address] [phone] [place] [address] Social History Tobacco Use Types Packs/Day Years [...] or relatives? How often do you attend latter-day or Patient refused 2021 sabianism services? Do you belong to any clubs or No 06/09/2021 organizations such as latter-day groups, unions, fraternal or athletic groups, or [...] place to sleep or slept in a senior care (including now)? Education Answer Date Recorded What is the highest level of school Master's degree (e.g., Victorina Hernandez MS, 12/27/2018 you have completed or the highest Phil, MEd, BRAND ADVOCATE, FALGUNI) degree you have received? 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
--- OUTSIDE RECORDS SUMMARY | 2022-03-02 16:08 | XMS_ITS | Encounter Summary ---
:1970 Author Organization [facility] Address [address] [place] [address] Care Team Providers Name Role Phone Unavailable Primary Care Provider Unavailable Reason for Visit Reason Comments Med Refill Encounter Details Date Type Department Care Team Description 02/25/2021 Refill Division of Endocrinology in Claritza Toth Med Refill [place], [place] Vasyl Venegas, B.Ch. [address] [facility] [address] [place] [address] [place] [address] [phone] (Wo rk) Social History Tobacco Use Types [...] or relatives? How often do you attend sabianism or Patient refused 2021 protestant services? Do you belong to any clubs or No 06/09/2021 organizations such as sabianism groups, unions, fraternal or athletic groups, or [...] place to sleep or slept in a assisted (including now)? Education Answer Date Recorded What is the highest level of school Master's degree (e.g., M A, MS, 12/27/2018 you have completed or the highest Phil, MEd, BRAIDED RUG MAKER, FALGUNI) degree you have received? 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 - 02/26/2021 11:44 AM CDT Prescription renewal request did not meet nurse protocol because: patient has not been seen within the past 12 months Protocol utilized: Prescription Renewal Request for Medications: Division of Endocrinology, Diabetes, Metabolism and Nutrition. documented in this encounter Plan of Treatment Not on filedocumented as of this encounter Visit Diagnoses Not on filedocumented in this encounter
--- OUTSIDE RECORDS SUMMARY | 2022-03-02 16:08 | XMS_ITS | Encounter Summary ---
:1970 Author Organization [facility] Address [address] [place] [address] Care Team Providers Name Role Phone Unavailable Primary Care Provider Unavailable Reason for Visit Reason Comments Med Refill Encounter Details Date Type Department Care Team Description 07/05/2021 Refill Department of Neurology in Candi Ornelas M.D., Med Refill [place], [place] M.P.H. [address] [facility] [address] [place] [address] [place] [address] (Wo rk) Social History Tobacco [...] or relatives? How often do you attend mormonism or Patient refused 2021 yazidi services? Do you belong to any clubs or No 06/09/2021 organizations such as mormonism groups, unions, fraternal or athletic groups, or [...] have completed or the highest Phil, MEd, LEAD SHOP OPERATOR, FALGUNI) degree you have received? 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
--- OUTSIDE RECORDS SUMMARY | 2022-03-02 16:08 | XMS_ITS | Encounter Summary ---
:1970 Author Organization [facility] Address [address] [place] [address] Care Team Providers Name Role Phone Unavailable Primary Care Provider Unavailable Reason for Referral Outpatient (Routine) - Closed Specialty Diagnoses / Procedures Referred By Contact Refer red To Contact Neurology Candi Ornelas M.D ., M.P.H. [facility] [address] [phone] Referral ID Status Reason Start Date Expiration Date Visits Requ ested Visits Authorized [id number] Closed 04/23/2020 04/23/2021 1 1 GER IT TRAINING Reason for Visit Reason Comments Seizures follow up Headache restless legs Outpatient (Routine) - Closed Specialty Diagnoses / Procedures Referred By Contact Refer red To Contact Neurology Candi Ornelas M.D ., M.P.H. [facility] [address] [phone] Referral ID Status Reason Start Date Expiration Date Visits Requ ested Visits Authorized [id number] Closed 03/29/2019 03/28/2020 1 1 Encounter Details Date Type Department Care Team Description 04/23/2020 Office Visit Department of Candi Ornelas Migraine H eadache (Primary Dx); Neurology in [place], M.P.H. 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 How often do you attend congregational or Patient refused 2021 spiritism services? Do you belong to any clubs or No 06/09/2021 organizations such as congregational groups, unions, fraternal or athletic groups, or [...] place to sleep or slept in a [place] facility (including now)? Education Answer Date Recorded What is the highest level of school Master's degree (e.g., M A, MS, 12/27/2018 you have completed or the highest Phil, MEd, [employer], FALGUNI) degree you have received? 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 - 04/23/2020 9:45 AM CST SUBJECTIVE CHIEF COMPLAINT / REASON FOR VISIT Coretta Monaco is a 49 y.o. female who presents for evaluation of Seizures (follow up), Headache, and restless legs. HISTORY OF PRESENT ILLNESS Patient is the visit by herself. She reports that she has had for five seizures over the past several months a none of these have been associated with loss of consciousness and she has not had episodesof loss of consciousness for quite a number of years. Her medicines have remained stable. The interested reader is directed to my 1st notes for a more extensive history. She had her diagnostic studies including neuroimaging any EEG studies in another healthcare system that we do not have access to. She has history of migraines and these are reasonably well controlled she takes Topamax if for both seizures and headache prophylaxis and Imitrex to abort the migraine headaches. She has a very sharp stabbing type of headache over the left eyebrow that she agrees feel like ice pick headaches. She thinks that the stress of the pandemic is probably increase her seizures which in the past been characterized as being gelastic. Now she feels as though she has heavy had and heavy arms but without loss of consciousness Restless leg symptoms have largely resolved. Her [place] sleepiness Score today is two her restless leg syndrome rating scale score is 10 No past medical history [...] ??? levothyroxine (SYNTHROID, LEVOTHROID) 100 mcg tablet, Take 1 tablet (100 mcg total) by mouth every morning before breakfast., Disp: 90 tablet, Rfl: 3 ??? SUMAtriptan [...] needed., Disp: 9 tablet, Rfl: 5 ??? topiramate (TOPAMAX) 100 mg tablet, Take 1 tablet (100 mg total) by mouth 2 (two) times a day., Disp: 180 tablet, Rfl: 3 ALLERGY: Allergies Allergen Reactions ??? Cortisone Other (see comments) ??? Betamethasone Other (see comments) Severe Stomach cramps ??? Nickel Rash ??? Corticosteroids (Glucocorticoids) Rash Turned bright red all over body ??? Green Tea [place] Extract Rash Burning rash ??? Naproxen Rash rash No family history on file. Social History Socioeconomic History ??? Marital status: Spouse name: Not on file ??? Number of children: Not on file ??? Years of education: Not on file ??? Highest education level: Master's degree (e.g., MA, MS, Phil, MEd, [employer], [employer]ALGUNI) Occupational History ??? Not on file Social Needs ??? Financial resource strain: Not hard at all ??? Food insecurity Worry: Never true Inability: Never true ??? Transportation needs Medical: No Non-medical: Not on file Tobacco Use ??? Smoking status: Never Smoker ??? Smokeless tobacco: Never Used Substance and Sexual Activity ??? Alcohol use: Yes Frequency: Monthly or less Drinks per session: 1 or 2 Comment: 1 glass of wine monthly ??? Drug use: Not on file ??? Sexual activity: Not on file Lifestyle ??? Physical activity Days per week: Not on file Minutes per session: Not on file ??? Stress: Not on file Relationships ??? Social connections Talks on phone: Three times a week Gets together: More than three times a week Attends spiritism service: 1 to 4 times per year Active member of club or organization: Yes Attends meetings of clubs or organizations: More than 4 times per year Relationship status: Not on file ??? Intimate partner violence Fear of current or ex partner: Not on file Emotionally abused: Not on file Physically abused: Not on file Forced sexual activity: Not on file Other Topics Concern ??? Not on file Social History Narrative ??? Not on file @ OBJECTIVE Vitals: 04/23/20 0957 BP: 117/80 BP Location: Right arm Patient Position: Sitting Cuff Size: Regular Pulse: 71 Weight: 79.1 kg PHYSICAL EXAM COGNITION: Alert and oriented x 4. CRANIAL NERVES: traveling nurse II-XII intact and symmetric. MOTOR: Full strength throughout the upper and lower extremities bilaterally both proximally and distally. Normal tone. No pronator drift. No tremor. REFLEXES: Normal and symmetric at the biceps, triceps, brachioradialis, knees, and ankles. SENSORY: normal sensation to touch CEREBELLAR: ARMs-normal GAIT: Normal Impression: Encounter Diagnoses Name Primary? Migraine Headache Yes ??? 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 Restless Leg Syndrome Patient has focal seizures still are not present with loss of consciousness were going to not make any changes to her therapy. Migraine headaches her also reasonably well controlled. Restless leg symptoms are not troubling at all to her. We will leave her medicine unchanged I will plan to follow up with her in six months. Total time with the patient today was 35 minutes. Candi Ornelas M.D., M.P.H. GER IT TRAINING documented in this encounter Plan of Treatment Scheduled Referrals Name Type Priority Associated Diagnoses Order S 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
--- OUTSIDE RECORDS SUMMARY | 2022-03-02 16:09 | XMS_ITS | Encounter Summary ---
:1970 Author Organization [facility] Address [address] [place] [address]. [place] [address] Care Team Providers Name Role Phone Unavailable Primary Care Provider Unavailable Encounter Details Date Type Department Care Team Description 11/07/2018 Medical Correspondence [facility] Scan, REFERRAL [facility] Non-Provider [facility] [address] [place] [phone] Social History Tobacco Use Types Packs/Day Years Used Date Smoking Tobacco: Never Alcohol Use Standard Drinks/Week Comments Yes 0 (1 standard drink = 0.6 oz pure alcoho l) occasionally Sex Assigned at Date Recorded Not on file documented as of this encounter Plan of Treatment Not on filedocumented as of this encounter Visit Diagnoses Not on filedocumented in this encounter
--- OUTSIDE RECORDS SUMMARY | 2022-03-02 16:09 | XMS_ITS | Encounter Summary ---
:1970 Author Organization [facility] Address [address] [place] [address]. [place] [address] Care Team Providers Name Role Phone Nicolasa Hadley MD Primary Care Provider [phone] Encounter Details Date Type Department Care Team Description 04/18/2019 Travel Social History Tobacco Use Types Packs/Day Years Used Date Smoking Tobacco: Never Smokeless Tobacco: Never Alcohol Use Standard Drinks/Week Comments Yes 0 (1 standard drink = 0.6 oz pure alcoho l) occasionally Sex Assigned at Date Recorded Not on file documented as of this encounter Plan of Treatment Not on filedocumented as of this encounter Visit Diagnoses Not on filedocumented in this encounter Care Teams Cane Flume Watcher Relationship Specialty Start Date End Date Nicolasa Hadley MD PCP - General Family Practice 04/18/[address] [address] documented as of this encounter
--- OUTSIDE RECORDS SUMMARY | 2022-03-02 16:09 | XMS_ITS | Encounter Summary ---
:1970 Author Organization [facility] Address [address] [place] [address] Care Team Providers Name Role Phone Mohit Najera PA-C Primary Care Provider [phone] Encounter Details Date Type Department Care Team Description 11/22/2005 [facility] Prior W Zita davis MD [address] [address] [place] [address] [phone] Social History Tobacco Use Types Packs/Day Years Used Date Smoking Tobacco: Never Alcohol Use Standard Drinks/Week Comments Yes 0 (1 standard drink = 0.6 oz pure alcoho l) occasionally Sex Assigned at Date Recorded Not on file documented as of this encounter Miscellaneous Notes Telephone Encounter - Zita Rutledge MD - 11/24/2005 12:56 PM CDT Prescription called in. Zita Rutledge MD Telephone Encounter - Pradeep Maher - 11/22/2005 4:55 PM CDT [place] needs enough topamax to get her thru the 10 months.Pt states she talked with you at her last office visit about this. Her ins said this would be ok. Please call pt when this is done, is leaving 12/14/2005 Rubi Maher LPN Telephone Encounter - Pradeep Maher - 11/22/2005 4:53 PM CDT Staff Message copied by PRADEEP MAHER on 11/22/2005 at 4:53 PM ------ Message from: MARCOS CORONADO Created: 11/22/2005 at 2:11 PM Regarding: KW / meds Contact: Question about her medication. documented in this encounter Plan of Treatment Not on filedocumented as of this encounter Visit Diagnoses Diagnosis CONVULSIONS, OTHER - Primary Other convulsions documented in this encounter Care Teams Rubber Press Tender Relationship Specialty Start Date End Date Mohit Najera PA-C PCP - General 09/25/02 04/08/14 [address] [place] [address] documented as of this encounter
--- OUTSIDE RECORDS SUMMARY | 2022-03-02 16:09 | XMS_ITS | Encounter Summary ---
:1970 Author Organization [place] Address [address] [place] [id number] Care Team Providers Name Role Phone Nicolasa Hadley MD Primary Care Provider [phone] Reason for Visit Auth/Cert Specialty Diagnoses / Procedures Referred By Contact Refer red To Contact Surgery Diagnoses Non-toxic multinodular goiter Non-toxic multinodular goiter [E04.2] Rh Periop Servic es Procedures THYROIDECTOMY, TOTAL [address] [place], [place] [address] Phone: Fax: Referral ID Status Reason Start Date Expiration Date Visits Requ ested Visits Authorized [id number] 1 1 Encounter Details Date Type Department Care Team Description 06/05/2019 Surgery [facility] Filomena Shah MD TOTAL THYROIDECTOMY [facility] [address] [place], [place] [id number] [phone] Surgery Details Date/Time Status Location OR Service Patient Case Class Case Tr auma Class Type Case? 06/05/19 7:55 Posted [facility] OR OR 01 General Same Day Outpatient in AM Surgery Bed Panel 1 Procedure LRB Anes Op Region Wound Class Commen ts TOTAL THYROIDECTOMY N/A General Neck I-Clean Surgeon Surgeon Role Service Panel Filomena Starkey MD Primary General 1 Laurie Baum PA-C Assisting Building Architectural Designer Authoriz ation 1 documented in this encounter Social History Tobacco Use Types Packs/Day Years Used Date Smoking Tobacco: Never Smokeless Tobacco: Never Alcohol Use Standard Drinks/Week Comments Yes 0 (1 standard drink = 0.6 oz pure alcoho l) occasionally Sex Assigned at Date Recorded Not on file documented as of this encounter Last Filed Vital Signs Vital Sign Reading Time Taken Comments Blood Pressure 166/102 06/05/2019 11:05 AM FABRIC WORKER SUPERVISOR Pulse 74 06/05/2019 11:05 AM FABRIC WORKER SUPERVISOR Temperature 36.2 ??C (97.1 ??F) 06/05/2019 7:05 AM FABRIC WORKER SUPERVISOR Respiratory Rate 11 06/05/2019 11:05 AM FABRIC WORKER SUPERVISOR Oxygen Saturation 100% 06/05/2019 11:05 AM FABRIC WORKER SUPERVISOR Inhaled Oxygen Concentration - - Weight 76.7 kg (169 lb) 06/05/2019 7:03 AM FABRIC WORKER SUPERVISOR Height 162.6 cm (5' 4) 06/05/2019 7:03 AM FABRIC WORKER SUPERVISOR Body Mass Index 29.01 06/05/2019 7:03 AM FABRIC WORKER SUPERVISOR documented in this encounter Discharge Instructions Discharge InstructionsJackie Ridley PA-C - 06/06/2019 8:57 AM FABRIC WORKER SUPERVISOR HOME CARE FOLLOWING THYROIDECTOMY/LOBECTOMY Troy Monroy J. Shaheen Special instructions for Coretta Frank: --Discharge medications: Calcium supplement, Levothyroxine and Astor -Calcium Taper Schedule: Take two tablets every 8 hours for one week, then decrease to two tablets every 12 hours for one week, then decrease to one tablet every 12 hours for one week, then decrease toone tablet daily until gone. --Follow up appointment with Dr. Starkey in 1-3 weeks, follow up with Surgical Coordinator in 4-6 weeks. RESULTS: Call the office regarding your final pathology report if you have not received your results after 2 full business days. INCISIONAL CARE: ??? You may remove the dressing 24 hours after the drain was removed; replace the gauze if it becomes soiled. ??? You may expect a small amount of drainage from your previous drain site. ??? After removing the dressing, you may shower. Do not submerse incision in water for 1 week. ??? Sutures will absorb and do not need to be removed. ??? Leave the steri-strips (white paper tapes) in place until they fall off, or remove at 2 weeks after surgery. ??? A lump/ridge under the incision is normal and will gradually resolve. ACTIVITY: Light Activity -- you may immediately be up and about as tolerated. Driving -- you may drive when comfortable and off narcotic pain medications. Light Work -- resume when comfortable off pain medications. (If you can drive, you probably can work.) Strenuous Work/Activity -- limit lifting to less than 10 pounds for 1 week. Progressively increase with time. Active Sports (running, biking, etc.) -- cautiously resume after 1 week. DIET: No restrictions. Increased fluid intake is recommended. While taking pain medications, increase dietary fiber or add a fiber supplementation like Metamucil or Citrucel to help prevent constipation - a possible side effect of pain medications. DISCOMFORT: Use pain medications as prescribed by your surgeon. Take the pain medication with some food, when possible, to minimize side effects. Intermittent use of ice packs may help during the first 48 hours. Expect gradual improvement. CALCIUM SUPPLEMENTATION: Some patients are prescribed to take a calcium supplement after surgery. Please take as prescribed. Watch for symptoms of numbness or tingling around the mouth or in the fingers or toes. This may be a sign of a low calcium level. If this happens, take an extra dose of your calcium supplement. If the symptoms persist, please contact the office. You may need to have your blood calcium level checked by doing a simple blood test. We may also need to make adjustments in your calcium dose. Not all patients require calcium monitoring and supplementation post-op. If your calcium was monitored and stabilized after surgery, the risk of having issues with low calcium once you are home is very small. RETURN APPOINTMENT: Schedule a follow-up visit 1-3 weeks post-op (you may do this any time after surgery is scheduled). Office CONTACT US IF THE FOLLOWING DEVELOPS: 1. A fever that is above 101?? 2. If there is a large amount of drainage, bleeding, or swelling. 3. Severe pain that is not relieved by your prescription. 4. Drainage that is thick, cloudy, yellow, green or white. 5. Any other questions not answered by ???Frequently Asked Questions?? sheet. FREQUENTLY ASKED QUESTIONS: Q: How should my incision look? A: Normally your incision will appear slightly swollen with light redness directly along the incision itself as it heals. It may feel like a bump or ridge as the healing/scarring happens, and over time(3-4 months) this bump or ridge feeling should slowly go away. In general, clear or pink watery drainage can be normal at first as your incision heals, but should decrease over time. Q: How do I know if my incision is infected? A: Look at your incision for signs of infection, like redness around the incision spreading to surrounding skin, or drainage of cloudy or foul-smelling drainage. If you feel warm, check your temperature to see if you are running a fever. If any of these things occur, please notify the nurse at our office. We may need you to come into the office for an incision check. Q: How do I take care of my incision? A: If you have a dressing in place - Starting the day after surgery, replace the dressing 1-2 times a day until there is no further drainage from the incision. At that time, a dressing is no longer needed. Try to minimize tape on the skin if irritation is occurring at the tape sites. If you have significant irritation from tape on the skin, please call the office to discuss other method of dressing your incision. Small pieces of tape called ???steri-strips?? may be present directly overlying your incision; these may be removed 10 days after surgery unless otherwise specified by your surgeon. If these tapes start to loosen at the ends, you may trim them back until they fall off or are removed. Q: There is a piece of tape or a sticky ???lead?? still on my skin. Can I remove this? A: Sometimes the sticky ???leads?? used for monitoring during surgery or for evaluation in the emergency department are not all removed while you are in the hospital. These sometimes have a tab or metal dot on them. You can easily remove these on your own, like taking off a band-aid. If there is a gel substance under the ???lead?? , simply wipe/clean it off with a washcloth or paper towel. Q: What can I do to minimize constipation (very hard stools, or lack of stools)? A: Stay well hydrated. Increase your dietary fiber intake or take a fiber supplement -with plenty ofwater. Walk around frequently. You may consider an gcuz-rur-kcnwans stool-softener. Your Pharmacist can assist you with choosing one that is stocked at your pharmacy. Constipation is also one of the most common side effects of pain medication. If you are using pain medication, be pro-active and try toPREVENT problems with constipation by taking the steps above BEFORE constipation becomes a problem. Q: What do I do if I need more pain medications? A: Call the office to receive refills. Be aware that certain pain meds cannot be called into a pharmacy and actually require a paper prescription. A change may be made in your pain med as you progress thru your recovery period or if you have side effects to certain meds. --Pain meds are NOT refilled after 5pm on weekdays, and NOT AT ALL on the weekends, so please look ahead to prevent problems. Q: Why am I having a hard time sleeping now that I am at home? A: Many medications you receive while you are in the hospital can impact your sleep for a number of days after your surgery/hospitalization. Decreased level of activity and naps during the day may alsomake sleeping at night difficult. Try to minimize day-time naps, and get up frequently during the day to walk around your home during your recovery time. Sleep aides may be of some help, but are not recommended for long-term use. Q: I am having some back discomfort. What should I do? A: This may be related to certain positioning that was required for your surgery, extended periods of time in bed, or other changes in your overall activity level. You may try ice, heat, acetaminophen,or ibuprofen to treat this temporarily. Note that many pain medications have acetaminophen in them and would state this on the prescription bottle. Be sure not to exceed the maximum of 4000mg per day of acetaminophen. If the pain you are having does not resolve, is severe, or is a flare of back pain you have had onother occasions prior to surgery, please contact your primary physician for further recommendations or for an appointment to be examined at their office. Q: Why am I having headaches? A: Headaches can be caused by many things: caffeine withdrawal, use of pain meds, dehydration, high blood pressure, lack of sleep, over-activity/exhaustion, flare-up of usual migraine headaches. If youfeel this is related to muscle tension (a band-like feeling around the head, or a pressure at the low-back of the head) you may try ice or heat to this area. You may need to drink more fluids (try electrolyte drink like Gatorade), rest, or take your usual migraine medications. If your headaches do not resolve, worsen, are accompanied by other symptoms, or if your blood pressure is high, please call your primary physician for recommendation and/or examination. Q: I am unable to urinate. What do I do? A: A small percentage of people can have difficulty urinating initially after surgery. This includesbeing able to urinate only a very small amount at a time and feeling discomfort or pressure in the very low abdomen. This is called ???urinary retention?? , and is actually an urgent situation. Proceedto your nearest Emergency department for evaluation (not an Urgent Care Center). Sometimes the bladder does not work correctly after certain medications you receive during surgery, or related to certain procedures. You may need to have a catheter placed until your bladder recovers. When planning to goto an Emergency department, it may help to call the ER to let them know you are coming in for this problem after a surgery. This may help you get in quicker to be evaluated. If you have symptoms of a urinary tract infection, please contact your primary physician for the proper evaluation and treatment. If you have other questions, please call the office Tuesday thru Tuesday between 8am and 5pm to discuss with the nurse or physician cook's assistant. # There is a surgeon SOAP MAKER on weekday evenings and over the weekend in case of urgent need only, andmay be contacted at the same number. If you are having an emergency, call 911 or proceed to your nearest emergency department. IC WORKER SUPERVISOR documented in this encounter Medications at Time of Discharge Medication Sig Dispensed Refills Start Date End Date calcium carbonate 500 Take 2 tablets (1,000 120 tablet 0 mg, elemental, (OSCAL mg) by mouth every 8 500) 1250 (500 Ca) MG hours See discharge TABS tabletIndications: summary for taper S/P total thyroidectomy schedule. Cyanocobalamin (VITAMIN Take 1 tablet by 0 B-12 PO) mouth daily docusate sodium Take 100 mg by mouth 0 (COLACE) 100 MG capsule nightly as needed for constipation Fexofenadine HCl Take 180 mg by mouth 0 (HOWARD ALLERGY PO) daily as needed gabapentin (NEURONTIN) 300 mg nightly as 11 2018 100 MG capsule needed SUMAtriptan (IMITREX) TAKE 1 TAB ONCE 5 2018 100 MG tablet NEEDED FOR MIGRAINE FOR UP TO 1 DOSE. MAY REPEAT 1 X AFTER 2 HOURS IF NEEDED. TOPAMAX 100 MG OR 1 TABLET TWICE DAILY 600 0 11/23/19 06 TABSIndications: Other convulsions VITAMIN D PO Take 1 tablet by 0 mouth daily HYDROcodone-acetaminoph Take 1 tablet by 6 tablet 0 201906/13/2019 en (NORCO) 5-325 MG mouth every 6 hours tabletIndications: S/P as needed for total thyroidectomy moderate to severe pain Take with food to minimize side effects. levothyroxine Take 1 tablet (125 60 tablet 1 06/06/2019 (SYNTHROID/LEVOTHROID) mcg) by mouth daily 125 MCG tabletIndications: S/P total thyroidectomy documented as of this encounter Progress Notes Jackie Ridley PA-C - 06/06/2019 8:40 AM CST [facility] General Surgery Progress Note Assessment and Plan: Assessment: -Non-toxic multinodular goiter -POD#1 s/p Procedure(s): TOTAL THYROIDECTOMY -Normal serum calcium levels, on supplementation Plan: -OK to DC today. DC Rx: norco, oscal, levothyroxine. OTC bowel program prn. Discharge instructions were reviewed with the patient in detail. All her questions/concerns were addressed. She is aware that a printed copy of instructions will be given to her upon discharge. -RTC with Dr. Starkey in 1-3 weeks. RTC with Surgical Coordinator in 4-6 weeks. Interval History: Mild sore throat with swallowing, but tolerating diet and meds fine. Normal voice. No numbness or tingling. Had ear pressure sensation yesterday, but resolved today. Voiding well. Walking. Physical Exam: Blood pressure 121/74, pulse 84, temperature 98 ??F (36.7 ??C), temperature source Oral, resp. rate 15, height 1.626 m (5' 4), weight 76.7 kg (169 lb), last menstrual period 10/25/2005, SpO2 96 %, notcurrently . I/O last 3 completed shifts: In: 2500 [I.V.:2500] Out: 4120 [Urine:4075; Drains:30; Blood:15] Neck - flat, no seroma/hematoma. Incision - clean, dry, steri-strips intact. No erythema/bruising. Drain - No leakage around site. Output: pink/light pink & thin. DC'd without issue. Chvostek's - negative Data: Recent Labs Lab Test 06/06/19 0652 06/05/19 2103 ANUJ 8.6 8.6 Jackie Ridley PA-C IC WORKER SUPERVISOR documented in this encounter Miscellaneous Notes Plan of Care - Gregor Montano RN - 06/06/2019 10:41 AM CST Patient's After Visit Summary was reviewed with patient Patient verbalized understanding of After Visit Summary, recommended follow up and was given an opportunity to ask questions. Discharge medications sent home with patient/family: YES Discharged with father. AVS reviewed w/ pt. Pt walking off unit. Leaving via private transport. OBSERVATION patient END time: 1055 a IC WORKER SUPERVISOR Plan of Care - Gregor Montano RN - 06/06/2019 10:00 AM CST PRIMARY DIAGNOSIS: Total thyroidectomy OUTPATIENT/OBSERVATION GOALS TO BE MET BEFORE DISCHARGE: 1. Stable vital signs Yes 2. Tolerating diet:Yes 3. Pain controlled with oral pain medications: Yes 4. Positive bowel sounds: hypoactive 5. Voiding without difficulty: Yes 6. Able to ambulate: Yes 7. Provider specific discharge goals met: Yes Produce Manager Nurse Safe discharge environment identified: Yes Barriers to discharge: No Entered by: Gregor Montano 06/06/2019 Pt alert and oriented x4. She has pain 4/10 at incision site. Given tylenol. Incision CDI. ALICIA drain removed by surgery today. Eating regular diet. Up indep. SL. Voiding ok. Will go home this morning. BP 121/74 (BP Location: Left arm) Pulse 84 Temp 98 ??F (36.7 ??C) (Oral) Resp 15 Ht 1.626 m (5' 4) Wt 76.7 kg (169 lb) LMP 10/25/2005 SpO2 96% BMI 29.01 kg/m?? Please review provider order for any additional goals. Nurse to notify provider when observation goals have been met and patient is ready for discharge. IC WORKER SUPERVISOR Plan of Darling Reilly RN - 06/06/2019 4:36 AM CST PRIMARY DIAGNOSIS: s/p total thyroidectomy OUTPATIENT/OBSERVATION GOALS TO BE MET BEFORE DISCHARGE: 1. Stable vital signs Yes 2. Tolerating diet:Yes 3. Pain controlled with oral pain medications: Yes 4. Positive bowel sounds: Yes 5. Voiding without difficulty: Yes 6. Able to ambulate: Yes 7. Provider specific discharge goals met: Yes Produce Manager Nurse Safe discharge environment identified: Yes Barriers to discharge: Yes Entered by: Darling Avila 06/06/2019 4:36 AM VSS, pt is A&Ox4, up SBA, incision C/D/I, ALICIA x1 with serosanguinous drainage, tolerating a regular diet, will continue to monitor Please review provider order for any additional goals. Nurse to notify provider when observation goals have been met and patient is ready for discharge. IC WORKER SUPERVISOR Plan Darling Yeung RN - 06/06/2019 12:40 AM CST PRIMARY DIAGNOSIS: s/p total thyroidectomy OUTPATIENT/OBSERVATION GOALS TO BE MET BEFORE DISCHARGE: 1. Stable vital signs Yes 2. Tolerating diet:Yes 3. Pain controlled with oral pain medications: Yes 4. Positive bowel sounds: Yes 5. Voiding without difficulty: Yes 6. Able to ambulate: Yes 7. Provider specific discharge goals met: Yes Produce Manager Nurse Safe discharge environment identified: Yes Barriers to discharge: Yes Entered by: Darling Avila 06/06/2019 12:40 AM VSS, pt is A&Ox4, up SBA, SL, incision c/d/I, ALICIA x1 with serosanguinous drainage, daughter at bedside, will continue to monitor Please review provider order for any additional goals. Nurse to notify provider when observation goals have been met and patient is ready for discharge. IC WORKER SUPERVISOR Plan of [place]ania - Darling Avila RN - 06/05/2019 9:33 PM CST PRIMARY DIAGNOSIS: s/p total thyroidectomy OUTPATIENT/OBSERVATION GOALS TO BE MET BEFORE DISCHARGE: 1. Stable vital signs Yes 2. Tolerating diet:Yes 3. Pain controlled with oral pain medications: Yes 4. Positive bowel sounds: Yes 5. Voiding without difficulty: Yes 6. Able to ambulate: Yes 7. Provider specific discharge goals met: Yes Produce Manager Nurse Safe discharge environment identified: Yes Barriers to discharge: Yes Entered by: Darling Avila 06/05/2019 9:34 PM VSS, pt is A&Ox4, up SBA, incision C/D/I, ALICIA with serosanguinous drainage, voiding adequately, will continue to monitor Please review provider order for any additional goals. Nurse to notify provider when observation goals have been met and patient is ready for discharge. IC WORKER SUPERVISOR Plan of [place] - Mohit Saldana RN - 06/05/2019 6:00 PM CST PRIMARY DIAGNOSIS: Total Thyroidectomy OUTPATIENT/OBSERVATION GOALS TO BE MET BEFORE DISCHARGE: 1. Stable vital signs Yes 2. Tolerating diet:Yes, tolerating clears 3. Pain controlled with oral pain medications: Yes 4. Positive bowel sounds: Yes, hypoactive 5. Voiding without difficulty: Yes 6. Able to ambulate: Yes, walked 7. Provider specific discharge goals met: Yes ALICIA drain to bulb suction, draining serosanguinous drainage, emptied for 10ccs. Pt. Denies nausea, vomiting. Pt. Needed one dose of 0.2 dilaudid between Q4 hour NORCO. Pt. Reports neck pain worsens withnausea and coughing. Pt. Walked hallways, voiding, ate regular dinner Produce Manager Nurse Safe discharge environment identified: Yes Barriers to discharge: No Entered by: Mohit Saldana 06/05/2019 2:49 PM Please review provider order for any additional goals. Nurse to notify provider when observation goals have been met and patient is ready for discharge. IC WORKER SUPERVISOR Plan of Care - Mohit Saldana RN - 06/05/2019 2:00 PM CST PRIMARY DIAGNOSIS: Total Thyroidectomy OUTPATIENT/OBSERVATION GOALS TO BE MET BEFORE DISCHARGE: 1. Stable vital signs Yes 2. Tolerating diet:Yes, tolerating clears 3. Pain controlled with oral pain medications: Yes 4. Positive bowel sounds: Yes, hypoactive 5. Voiding without difficulty: No, roman removed around 1230 in PACU, due to void 1630 6. Able to ambulate: Yes, pivoted bed to bed 7. Provider specific discharge goals met: Yes ALICIA drain to bulb suction, draining serosanguinous drainage. Pt. Denies nausea, vomiting. NORCO givenfor neck pain 4-5/10, pain worsens with coughing and swallowing. Pain improved to 2/10. Produce Manager Nurse Safe discharge environment identified: Yes Barriers to discharge: No Entered by: Mohit Saldana 06/05/2019 2:49 PM Please review provider order for any additional goals. Nurse to notify provider when observation goals have been met and patient is ready for discharge. IC WORKER SUPERVISOR Pharmacy-Admission Medication History - Nickie Caceres RP - 06/05/2019 1:25 PM CST Pharmacy reviewed prior to admission med list from pre-admitting [facility]. Added standard OTC sig to b12, vit d and howard Prior to Admission medications Medication Sig Last Dose Taking? Auth Provider Cyanocobalamin (VITAMIN B-12 PO) Take 1 tablet by mouth daily Past Month at Unknown time Yes Reported, Patient docusate sodium (COLACE) 100 MG capsule Take 100 mg by mouth nightly as needed for constipation 06/04/2019 at Unknown time Yes Reported, Patient Fexofenadine HCl (HOWARD ALLERGY PO) Take 180 mg by mouth daily as needed 06/04/2019 at Unknown timeYes Reported, Patient gabapentin (NEURONTIN) 100 MG capsule 300 mg nightly as needed 06/04/2019 at Unknown time Yes Reported, Patient TOPAMAX 100 MG OR TABS 1 TABLET TWICE DAILY 06/05/2019 at Unknown time Yes Zita Rutledge MD VITAMIN D PO Take 1 tablet by mouth daily Past Month at Unknown time Yes Reported, Patient SUMAtriptan (IMITREX) 100 MG tablet TAKE 1 TAB ONCE NEEDED FOR MIGRAINE FOR UP TO 1 DOSE. MAY REPEAT 1 X AFTER 2 HOURS IF NEEDED. More than a month at Unknown time Reported, Patient IC WORKER SUPERVISOR Op Note - Filomena Starkey MD - 06/05/2019 10:56 AM CST General Surgery Operative Note PREOPERATIVE DIAGNOSIS: Non-toxic multinodular goiter [E04.2] POSTOPERATIVE DIAGNOSIS: Non-toxic multinodular goiter [E04.2] PROCEDURE: Total thyroidectomy ANESTHESIA: General. PREOPERATIVE MEDICATIONS: Ancef 2 gm SURGEON: Filomena Starkey MD PLACEMENT COORDINATOR: Laurie Baum PA=C - the physician cook's assistant was medically necessary in providing adequate exposure in the operating field, maintaining hemostasis, cutting suture, clamping and ligating blood vessels, and visualization of the anatomic structures throughout the surgical procedure. ESTIMATED BLOOD LOSS: 15cc's INDICATIONS: Coretta Frank is a 48 year old female who has had a multinodular goiter for about ten years. She has compression symptoms and an enlarging gland. She presents for total thyroidectomy. DESCRIPTION OF PROCEDURE: The patient was placed supine, head and neck in extension and a bump between the scapulae. Transverse cervical neck creases were marked in the preinduction area and the one most suitable was utilized for exposure. Superior and inferior skin flaps raised. Midline fascia openedand reflected to the left. The thyroid lobe was mildly enlarged and nodular. The upper pole was taken down by double ligation and division. Middle thyroidal vein and inferior pole veins were ligated and the gland reflected medially. The superior parathyroid and recurrent laryngeal nerve were identified and preserved. The posterior dissection was meticulously done to ligate and divide the inferior thyroidal artery and the ligament of Begum. The inferior parathyroid was also seen and preserved. We then proceeded with the right thyroid lobectomy. This lobe was larger with a dominant upper to mid posterior lobe. The upper pole was taken down by double ligation and division. Middle thyroidal vein and inferior pole veins were ligated and the gland reflected medially. The superior parathyroid and recurrent laryngeal nerve were identified and preserved. The posterior dissection was meticulously done to ligate and divide the inferior thyroidal artery and the ligament of Begum. The inferior parathyroid was seen and preserved. Once the remaining attachments were divided, the gland was oriented for pathology and submitted for permanent sections. The site was inspected for hemostasis, irrigated and closedover a 10 round ALICIA drain using running 3-0 Vicryl for the midline fascia, interrupted for platysma and 4- 0 subcuticular Monocryl for skin. The patient transferred to recovery in good condition. INTRAOPERATIVE FINDINGS: 1. Multinodular goiter 2. Both recurrent laryngeal nerves seen and preserved, function confirmed by nerve monitor. 3. All four parathyroid glands seen and preserved. Specimens: ID Type Source Tests Collected by Time Destination A : total thyroid, suture britt right superior pole Tissue Thyroid SURGICAL PATHOLOGY EXAM Filomena Starkey MD 06/05/2019 9:47 AM Filomena Starkey MD IC WORKER SUPERVISOR documented in this encounter Plan of Treatment Not on filedocumented as of this encounter Procedures Procedure Name Priority Date/Time Associated Diagnosis Comme nts BASIC METABOLIC PANEL Routine 06/06/2019 6:52 Non-toxic Res ults for this AM FABRIC WORKER SUPERVISOR multinodular goiter procedur e are in the results section. CALCIUM Timed 06/05/2019 9:03 Non-toxic Results for this PM FABRIC WORKER SUPERVISOR multinodular goiter procedur e are in the results section. SURGICAL PATHOLOGY Routine 06/05/2019 9:47 Result s for this EXAM AM FABRIC WORKER SUPERVISOR procedure are i n the results section. THYROIDECTOMY Routine 06/05/2019 6:55 Non-toxic AM FABRIC WORKER SUPERVISOR multinodular goiter documented in this encounter Results (ABNORMAL) Basic metabolic panel (06/06/2019 6:52 AM FABRIC WORKER SUPERVISOR) P athologist Signature Sodium 143 133 - 144 06/06/2019 [place] mmol/L 7:31 AM [facility] Potassium 3.5 3.4 - 5.3 06/06/2019 [place] mmol/L 7:31 AM [facility] Chloride 112 (H) 94 - 109 06/06/2019 [place] mmol/L 7:31 AM [facility] Carbon Dioxide 27 20 - 32 06/06/2019 [place] mmol/L 7:36 AM [facility] Anion Gap 4 3 - 14 06/06/2019 [place] mmol/L 7:36 AM [facility] Glucose 109 (H) 70 - 99 06/06/2019 [place] mg/dL 7:36 AM [facility] Urea Nitrogen 6 (L) 7 - 30 06/06/2019 [place] mg/dL 7:36 AM [facility] Creatinine 0.89 0.52 - 06/06/2019 [place] 1.04 mg/dL 7:36 AM [facility] GFR Estimate 75 >60 06/06/2019 [place] mL/min/{1. 7:36 AM [facility] 73_m2} [facility] Comment: Non GFR Calc Starting 04/25/2018, serum creatinine ba sed estimated GFR (eGFR) will be calculated using the [facility] Epidemiology Collaboration (CKD-EPI) equation. GFR Estimate If 87 >60 mL/min/{1.73_m2} 06/06/2019 7: 36 AM [facility] Comment: GFR Calc Starting 04/25/2018, serum creatinine ba sed estimated GFR (eGFR) will be calculated using the [facility] Epidemiology Collaboration (CKD-EPI) equation. Calcium 8.6 8.5 - 10.1 mg/dL 06/06/2019 7:36 AM [facility] Specimen Anatomical Collection Method Collection Time Receive d Time (Source) Location / / Volume Laterality Blood specimen 06/06/2019 6:52 AM 020 6:53 (specimen) FABRIC WORKER SUPERVISOR AM [facility] Filomena Starkey MD LAB - BLOOD ORDERABLES Performing Organization Address City/State/ZIP Code Phon e Number M [facility] [address] [address] [facility] [address] [place] [place] [address], [facility] [phone] [facility] [address] [address], [facility] [phone] HOSPITAL Calcium (06/05/2019 9:03 PM FABRIC WORKER SUPERVISOR) P athologist Signature Calcium 8.6 8.5 - 10.1 06/05/2019 [place] mg/dL 9:15 PM FABRIC WORKER SUPERVISOR [facility] Specimen Anatomical Collection Method Collection Time Receive d Time (Source) Location / / Volume Laterality Blood specimen 06/05/2019 9:03 PM 020 9:04 (specimen) FABRIC WORKER SUPERVISOR PM FABRIC WORKER SUPERVISOR Filomena Starkey MD LAB - BLOOD ORDERABLES Performing Organization Address City/State/ZIP Code Phon e Number M [facility] [address] [address] [facility] [address] [address], [facility] [phone] Surgical pathology exam (06/05/2019 9:47 AM FABRIC WORKER SUPERVISOR) Component Value Ref Test Analysis Performed At [facility] Range Method Time Signature Copath Report Patient Name: CORETTA FRANK MR#: [id number] Specimen #: [id number] Collected: 06/05/2019 Received: 06/05/2019 Reported: 06/07/2019 16:44 Ordering Phy(s): FILOMENA STARKEY For improved result formatting, select 'View Enhanced Report Format' under Linked Documents section. SPECIMEN(S): Total thyroid FINAL DIAGNOSIS: Thyroid gland, total thyroidectomy - - Follicular adenoma (2 cm), right lobe. - Benign nodular hyperplasia. - Single reactive lymph node. - No parathyroid tissue identified. - Negative for malignancy. Electronically signed out by: Paty Garcia M.D. CLINICAL HISTORY: Nontoxic multinodular goiter. 48-year-old female who has had a multinodular goiter for about ten years. ??She has compression symptoms and an enlarging gland. The patient underwent total thyroidectomy. GROSS: The specimen is received in formalin labeled with the patien t's name, identifying information and designated total thyroid, suture britt superior pole. ??It consists o f a 31 g oriented total thyroidectomy specimen with a suture marking right superior pole. ??It consists of the r ight lobe (4.5 x 2.5 x 2.5 cm), left lobe (4 x 2 x 1.5 cm), and isthmus (1 x 0.8 x 0.7 cm). ??The red-brown, intact capsule is inked as follows: Anterior-blue, and posterior-black. ??Sectioning the right lobe reveals f our circumscribed nodules, ranging from 0.3-2 cm. The nodules reveal a bustamante to light brown soft cut surface. ?? The largest nodule has a thick capsule. ??Sectioning the left lobe reveals a 1 cm brown to hemorrhagic nodule. ?? The remaining cut surfaces are red-brown and beefy. All possible nodules are submitted. Summary of Sections: 1 - isthmus. 2 - right lobe, midsize superior nodule 3-8 - right lobe, two smaller and largest thickly encapsulat ed nodule, submitted sequentially superior to inferior. 9 - left lobe, superior pole. 10-11 - left mid lobe with nodule. 12 - left inferior pole. (Dictated by: NELL Bautista 05/10 01:39 PM) MICROSCOPIC: Microscopic examination is performed. Selected slides are reviewed internally by an additional pat hologist (CHEVY) who concurs with the diagnosis. The technical component of this testing was completed at the [facility], with the professional compo nent performed at the [facility], [address] [place] [address] ??[phone] ([phone]) CPT Codes: A: 90160-JX2 COLLECTION SITE: Client: [facility] Location: [facility] (R) Specimen (Source) Anatomical Collection Method Collection Time Re ceived Time Location / / Volume Laterality Tissue specimen THYROID STRUCTURE 06/05/2019 9:47 AM (specimen) / Unknown FABRIC WORKER SUPERVISOR Filomena LEUNG Performing Organization Address City/State/ZIP Code Phon e Number [facility] documented in this encounter Visit Diagnoses Diagnosis Non-toxic multinodular goiter - Primary Nontoxic multinodular goiter Non-toxic multinodular goiter Nontoxic multinodular goiter S/P total thyroidectomy Other postprocedural status Non-toxic multinodular goiter Nontoxic multinodular goiter documented in this encounter Admitting Diagnoses Diagnosis Non-toxic multinodular goiter Nontoxic multinodular goiter documented in this encounter Administered Medications Inactive Administered Medications - up to 3 most recent administrations Medication Order MAR Action Action Date Dose Rate Site acetaminophen (TYLENOL) tablet 650 Given 06/06/2019 9:07 AM FABRIC WORKER SUPERVISOR 650 mg mg 650 mg, Oral, EVERY 6 HOURS PRN, mild pain, Starting on Tue06/05/19 at 1306, Do not use if patient has an active opioid/acetaminophen analgesic order for pain. Maximum acetaminophen dose from all sources = 75 mg/kg/day not to exceed 4 grams/day., Post-procedure acetaminophen (TYLENOL) tablet 975 mg Given 06/05/2019 8:18 AM FABRIC WORKER SUPERVISOR 975 mg 975 mg, Oral, ONCE, On Tue06/05/19 at 0745, For 1 dose, Maximum acetaminophen dose from all sources = 75 mg/kg/day not to exceed 4 grams/day., Pre-procedure bupivacaine (MARCAINE) Given 06/05/2019 10:36 AM 8 mLs Operative Site/Surgical 0.25% preservative free FABRIC WORKER SUPERVISOR S ite injection PRN, Starting on Tue06/05/19 at 1036, Intra-procedure calcium carbonate 500 mg (elemental) (OS ANUJ;OYSTER SHELL CALCIUM) tablet 1,000 mg 1,000 mg (2 tablet), Oral, EVERY 8 HOURS SCHEDULED, First dose on Tue06/06/19 at 1400, May substitute equivalent dose Calcium suspensio n if patient unable to swallow tablets. Each tablet = 500 mg elemental calciu m = 1250 mg calcium carbonate. calcium carbonate suspension 2,500 mg Given 06/06/2019 6:24 AM FABRIC WORKER SUPERVISOR 2,500 mg 2,500 mg, Oral, EVERY 8 HOURS, First dose on Tue06/05/19 at 1400, Post-procedure Given 06/05/2019 10:18 PM FABRIC WORKER SUPERVISOR 2,500 mg Given 06/05/2019 2:33 PM FABRIC WORKER SUPERVISOR 2,500 mg fentaNYL (PF) (SUBLIMAZE) injection 25-50 Given 06/05/2019 12:25 PM FABRIC WORKER SUPERVISOR 50 mcg mcg 25-50 mcg, Intravenous, EVERY 5 MIN PRN, other, acute pain while in PACU., Starting on Tue06/05/19 at 1110, MAX cumulative dose = 250 mcg. Use fentaNYL (SUBLIMAZE) initially, as a short acting agent for acute pain control. If insufficient, or a longer acting agent is needed, begin morphine or HYDROmorphone (DILAUDID) if ordered. For ordered IV doses 1-100 mcg give IV Push undiluted over a minimum of 3-5 minutes., PACU Given 06/05/2019 11:52 AM FABRIC WORKER SUPERVISOR 50 mcg gabapentin (NEURONTIN) capsule 300 mg Given 06/05/2019 10:03 PM FABRIC WORKER SUPERVISOR 300 mg 300 mg, Oral, AT BEDTIME, First dose on Tue06/05/19 at 2200, Post-procedure HYDROcodone-acetaminophen (NORCO) 5-325 MG Given 06/06 3:26 AM FABRIC WORKER SUPERVISOR 1 tablet per tablet 1-2 tablet 1-2 tablet, Oral, EVERY 4 HOURS PRN, other, pain control or improvement in physical function. Hold dose for analgesic side effects., Starting on Tue06/05/19 at 1306, Start with the lowest dose. May adjust dose by 1 tablet every 4 hours as needed. Notify the provider to assess for uncontrolled pain or analgesic side effects. Hold while on IV SPINNING MULE TENDER or with regular IV opioid dosing. Maximum acetaminophen dose from all sources= 75 mg/kg/day not to exceed 4 grams, Post-procedure Given 06/05/2019 10:03 PM FABRIC WORKER SUPERVISOR 1 tablet Given 06/05/2019 5:48 PM FABRIC WORKER SUPERVISOR 1 tablet HYDROmorphone (PF) (DILAUDID) injection 0.2 Given 06/05/2019 8:07 PM FABRIC WORKER SUPERVISOR 0.2 mg mg 0.2 mg, Intravenous, EVERY 2 HOURS PRN, other, pain control or improvement in physical function. Hold dose for analgesic side effects., Starting on Tue06/05/19 at 1306, Notify the provider to assess for uncontrolled pain or analgesic side effects. Hold while on IV SPINNING MULE TENDER or with regular IV opioid dosing. For ordered IV doses 0.1-4 mg give IV Push undiluted. Administer each 2mg over 2-5 minutes., Post-procedure Given 06/05/2019 3:52 PM FABRIC WORKER SUPERVISOR 0.2 mg labetalol (NORMODYNE/TRANDATE) syringe 1 0 mg Given 06/05/2019 11:23 AM FABRIC WORKER SUPERVISOR 10 mg 10 mg, Intravenous, ONCE, On Tue06/05/19 at 1130, For 1 dose, Give doses less than 20 mg over 2 minutes. For doses of 20 to 80 mg, give EACH 20 mg over 2 minutes IV push. labetalol (NORMODYNE/TRANDATE) syringe 1 0 mg Given 06/05/2019 11:59 AM FABRIC WORKER SUPERVISOR 10 mg 10 mg, Intravenous, ONCE, On Tue06/05/19 at 1200, For 1 dose, Give doses less than 20 mg over 2 minutes. For doses of 20 to 80 mg, give EACH 20 mg over 2 minutes IV push. lactated ringers infusion New Bag 06/05/2019 4:15 PM FABRIC WORKER SUPERVISOR 100 mL/hr at 100 mL/hr, Intravenous, CONTINUOUS, May Saline lock when taking PO well., Post-procedure, Starting on Tue06/05/19 at 1308, Until Tue06/06/19 at 1249 Restarted 06/05/2019 1:31 PM FABRIC WORKER SUPERVISOR 100 mL/hr levothyroxine (SYNTHROID/LEVOTHROID) tablet Given 05/10 9:07 AM FABRIC WORKER SUPERVISOR 125 mcg 125 mcg 125 mcg, Oral, DAILY, First dose on Tue06/06/19 at 0800, Post-procedure ondansetron (ZOFRAN) injection 4 mg Given 06/05/2019 6:59 PM FABRIC WORKER SUPERVISOR 4 mg 4 mg, Intravenous, EVERY 6 HOURS PRN, nausea, vomiting, Administer over 2-5 Minutes, Starting on Tue06/05/19 at 1306, This is Step 1 of nausea and vomiting management. If nausea not resolved in 15 minutes, go to Step 2 prochlorperazine (COMPAZINE). Irritant. For ordered IV doses 0.1-4 mg, give IV Push undiluted over 2-5 minutes., Post-procedure ondansetron (ZOFRAN-ODT) ODT tab 4 mg 4 mg, Oral, EVERY 6 HOURS PRN, nausea, v omiting, Starting on Tue06/05/19 at 1306, This is Step 1 of nausea and vomiting management. If n ausea not resolved in 15 minutes, go to Step 2 prochlorperazine (COMPAZINE). Do not push through foil backing. Peel back foil and gently remove. Place on to ngue immediately. Administration with liquid unnecessary W ith dry hands, peel back foil backing and gently remove tablet. Do not push oral d isintegrating tablet through foil backing. Administer immediately on tongue and oral disintegrati ng tablet dissolves in seconds, then swallow with saliva. Liquid not required ., Post-procedure prochlorperazine (COMPAZINE) injection 1 0 mg 10 mg, Intravenous, EVERY 6 HOURS PRN, nausea, vomitin g, Administer over 1-2 Minutes, Starting on Tue06/05/19 at 1306, This is Step 2 of nausea and vomiting management. If nausea not resolved in 15 minutes, give metoclopramide (REGLAN), if ordered (step 3 of nausea and vomiting m anagement) For ordered IV doses 0.1-10 mg, give IV Push undiluted. Each 5mg over 1 minute., Post- procedure prochlorperazine (COMPAZINE) tablet 10 m g 10 mg, Oral, EVERY 6 HOURS PRN, nausea, vomiting, Starting on Tue06/05/19 at 1306, This is Step 2 of nausea and vomiting management. If n ausea not resolved in 15 minutes, give metoclopramide (REGLAN), i f ordered (step 3 of nausea and vomiting management), Post-procedure sodium chloride (PF) 0.9% PF flush 3 mL Given 06/06/2019 6:24 AM FABRIC WORKER SUPERVISOR 3 mLs 3 mL, Intracatheter, EVERY 8 HOURS, First dose on Tue06/05/19 at 1400, And Q1H PRN, to lock peripheral IV dormant line., Post-procedure Given 06/05/2019 10:19 PM FABRIC WORKER SUPERVISOR 3 mLs topiramate (TOPAMAX) tablet 100 mg Given 06/06/2019 9:07 AM FABRIC WORKER SUPERVISOR 100 mg 100 mg, Oral, 2 TIMES DAILY, First dose on Tue06/05/19 at 2000, Post-procedure Given 06/05/2019 8:03 PM FABRIC WORKER SUPERVISOR 100 mg documented in this encounter Active and Recently Administered Medications Times are shown in FABRIC WORKER SUPERVISOR. Scheduled Medication Order 06/04/2019 06/05/2019 06/06/2019 acetaminophen (TYLENOL) tablet 975 mg (COMPLETED) 0818 (Given - Provider: Marlene Araya RN) 975 mg, Oral, ONCE, Tue06/05/19 at 0745, For 1 dose, Maximum acetaminophen dose from all sources = 75 mg/kg/day not to exceed 4 grams/day., Pre-procedure calcium carbonate 500 mg (elemental) (OS ANUJ;OYSTER SHELL CALCIUM) tablet 1,000 mg 1,000 mg (2 tablet), Oral, EVERY 8 HOURS SCHEDULED, First dose on Tue06/06/19 at 1400, May substitute equivalent dose Calcium suspension if patient unable to swallow tablets. Each tablet = 500 mg elemental calcium = 1250 mg calcium carbonate. calcium carbonate suspension 2,500 mg (CANCELED) 1433 (Given - Provider: Mohit Saldana RN)2218 (Given - Provider: Darling Avila RN) 0624 (Given - Provider: Darling Avila RN) 2,500 mg, Oral, EVERY 8 HOURS, First dos e on Tue06/05/19 at 1400, Post-procedure ceFAZolin (ANCEF) intermittent infusion 2 g in 100 mL dextrose PRE-MIX (COMPLETED) 08 (Given - Provider: Rangel Cha APRN TYPING OFFICE WORKER)1026 (Given - Provider: Remigio Cha APRN TYPING OFFICE WORKER) Routine, 2 g, Intravenous, PRE-OP/PRE-MD OCEDURE, Starting Tue06/05/19 at 0722, For 1 dose, Give first dose within 1 hour PRIOR to incision. If patient weight is greater than or equal to 120 kg increase dose to 3 g., Indications: Perioperative Pharmacoprophylaxis, Pr e-procedure gabapentin (NEURONTIN) capsule 300 mg 28 07 (Given - Provider: Darling Avila RN) 300 mg, Oral, AT BEDTIME, First dose on Tue06/05/19 at 2200, Pos t-procedure labetalol (NORMODYNE/TRANDATE) syringe 10 mg (COMPLETED) 1123 (Given - Provider: Kristen Johnston RN) 10 mg, Intravenous, ONCE, Tue06/05/19 at 1130, For 1 dose, Give doses less than 20 mg over 2 minutes. For doses of 20 to 80 mg, give EACH 20 mg over 2 minutes IV push. labetalol (NORMODYNE/TRANDATE) syringe 10 mg (COMPLETED) 1159 (Given - Provider: Kristen Johnston RN) 10 mg, Intravenous, ONCE, Tue06/05/19 at 1200, For 1 dose, Give doses less than 20 mg over 2 minutes. For doses of 20 to 80 mg, give EACH 20 mg over 2 minutes IV push. levothyroxine (SYNTHROID/LEVOTHROID) tablet 125 mcg 906 (Given - Provider: Gregor Montano, RN) 125 mcg, Oral, DAILY, First dose on Tue06/06/19 at 0800, Post-pr ocedure sodium chloride (PF) 0.9% PF flush 3 mL 1330 (Not Given - Provider: Mohit Saldana RN - Reason: IV Infusing)2219 (Given - Provider: Darling Avila, DORITA) 0624 (Given - Provider: Darling Avila, DORITA) 3 mL, Intracatheter, EVERY 8 HOURS, Firs t dose on Tue06/05/19 at 1400, And Q1H PRN, to lock peripheral IV dormant line., Post-procedure topiramate (TOPAMAX) tablet 100 mg 2002 (Given - Provider: Darling Avila RN) 906 (Given - Provider: Gregor Montano, DORITA ) 100 mg, Oral, 2 TIMES DAILY, First dose on Tue06/05/19 at 20 00, Post-procedure Continuous Medication Order 06/04/2019 06/05/2019 06/06/2019 lactated ringers infusion (CANCELED) 074 1 (New Bag - Provider: Remigio Cha APRN TYPING OFFICE WORKER)0907 (New Bag - Provider: Remigio Cha APRN TYPING OFFICE WORKER)1044 (Anesthesia Volume Adjustment - Provider: Remigio Cha APRN TYPING OFFICE WORKER) at 25 mL/hr, Intravenous, CONTINUOUS, IF patient NOT on dialysis., Pre- procedure, Starting Tue06/05/19 at 0730, Until Tue06/05/19 at 1055 lactated ringers infusion 1331 (Restarte d - Provider: Mohit Saldana RN)1615 (New Bag - Provider: Mohit Saldana RN)1845 (Stopped - Provider: Mohit Saldana RN) at 100 mL/hr, Intravenous, CONTINUOUS, M ay Saline lock when taking PO well., Post-procedure, Starting Tue06/05/19 at 1308, Until Tue06/06/19 at 1249 PRN Medication Order 06/04/2019 06/05/2019 06/06/2019 acetaminophen (TYLENOL) tablet 650 mg 0907 (Given - Provider: Gregor Montano RN) 650 mg, Oral, EVERY 6 HOURS PRN, mild pa in, Starting Tue06/05/19 at 1306, Do not use if patient has an active opioid/acetaminophen analgesic order for pain. Maximum acetaminophen dose from all sources = 75 mg/kg/day not to exceed 4 grams/day., Post-procedure bupivacaine (MARCAINE) 0.25% preservative free injection (CA NCELED) 1036 (Given - Provider: Filomena Starkey MD) PRN, Starting Tue06/05/19 at 1036, Intra-procedure docusate sodium (COLACE) capsule 100 mg 100 mg, Oral, AT BEDTIME PRN, constipati on, Starting Tue06/05/19 at 1306, Hold for loose stools., Post-procedure fentaNYL (PF) (SUBLIMAZE) injection 25-50 mcg (CANCELED) 1152 (Given - Provider: Kristen Johnston, DORITA)1225 (Given - Provider: Kristen Johnston RN) 25-50 mcg, Intravenous, EVERY 5 MIN PRN, Starting Tue06/05/19 at 1110, other, acute pain while in PACU., MAX cumulative dose = 250 mcg. Use fentaNYL (SUBLIMAZE) initially, as a short acting agent for ac yang pain control. If insufficient, or a longer acting agent is needed, begin morphine or HYDROmorphone (DILAUDID) if ordered. For ordered IV doses 1-100 mcg give IV Push undiluted over a minimum of 3-5 minutes., PACU HYDROcodone-acetaminophen (NORCO) 5-325 MG per tablet 1-2 ta blet 1331 (Given - Provider: Mohit Saldana, DORITA)1748 (Given - Provider: Mohit Saldana RN)2203 (Given - Provider: Darling Avila, DORITA) 0326 (Given - Provider: Darling Avila, DORITA) 1-2 tablet, Oral, EVERY 4 HOURS PRN, oth er, pain control or improvement in physical function. Hold dose for analgesic side effects., Starting Tue06/05/19 at 1306, Start with the lowest dose. May adjust dose by 1 tablet every 4 hours as needed . Notify the provider to assess for uncontrolled pain or analgesic side effects. Hold while on IV SPINNING MULE TENDER or with regular IV opioid dosing. Maximum acetaminophen dose from all sources= 75 mg/kg/day not to exceed 4 grams, Post-proc edure HYDROmorphone (PF) (DILAUDID) injection 0.2 mg 1551 (Given - Provider: Mohit Saldana, RN)2006 (Given - Provider: Darling Avila RN) 0.2 mg, Intravenous, EVERY 2 HOURS PRN, Starting Tue06/05/19 at 1306, Until Tue06/06/19 at 1249, other, pain control or improvement in physical function. Hold dose for analgesic side effects., Post-proc edure, Notify the provider to assess for uncontrolled pain or analgesic side effects. Hold while on IV SPINNING MULE TENDER or with regular IV opioid dosing. For ordered IV doses 0.1-4 mg give IV Push undiluted. Administer each 2mg over 2-5 minutes. lidocaine (LMX4) cream Topical, EVERY 1 HOUR PRN, pain, with VA D insertion or accessing implanted port., Starting Tue06/05/19 at 1306, Do NOT give if patient has a history of allergy to any local anesthetic or any meliton pro duct. Apply 30 minutes prior to VAD inse rtion or port access. MAX Dose: 2.5 g (?? of 5 g tube), Post-procedure lidocaine 1 % 1 mL 1 mL, Other, EVERY 1 HOUR PRN, mild pain with VAD insertion or accessing implanted port, Starting Tue06/05/19 at 1306, Do NOT give if patient has a history of allergy to any local anesthetic or any john ne product. MAX dose 1 mL subcutaneous OR intradermal in divided doses., Post-procedure naloxone (NARCAN) injection 0.1-0.4 mg 0.1-0.4 mg, Intravenous, EVERY 2 MIN PRN , opioid reversal, Starting Tue06/05/19 at 1306, For respiratory rate LESS than or EQUAL to 8. Partial reversal dose: 0.1 mg titrated q 2 minutes for Analgesia Si de Effects Monitoring Sedation Level of 3 (frequently drowsy, arousable, drifts to sleep during conversation).Full reversal dose: 0.4 mg bolus for Analgesia Side Effects Monitoring Sedation Level of 4 ( somnolent, minimal or no response to sti mulation). For ordered IV doses 0.1-2mg give IVP. Give each 0.4mg over 15 seconds in emergency situations. For non- emergent situations further dilute in 9mL of NS to facilitate titration of response., Post-procedure ondansetron (ZOFRAN) injection 4 mg(Linked Group 1) 1858 (Given - Provider: Mohit Saldana RN) 4 mg, Intravenous, EVERY 6 HOURS PRN, na usea, vomiting, Administer over 2-5 Minutes, Starting 06/05/19 at 1306, This is Step 1 of nausea and vomiting management. If nausea not resolved in 15 minutes, go to Step 2 prochlorperazine (COMPAZIN E). Irritant. For ordered IV doses 0.1-4 mg, give IV Push undiluted over 2-5 minutes., Post-procedure ondansetron (ZOFRAN-ODT) ODT tab 4 mg(Linked Group 1) 1858 (See Alternative - Provider: Mohit Saldana RN) 4 mg, Oral, EVERY 6 HOURS PRN, nausea, v omiting, Starting 06/05/19 at 1306, This is Step 1 of nausea and vomiting management. If nausea not resolved in 15 minutes, go to Step 2 prochlorperazine (COMP AZINE). Do not push through foil backing . Peel back foil and gently remove. Place on tongue immediately. Administration with liquid unnecessary With dry hands, peel back foil backing and gently remove t ablet. Do not push oral disintegrating t ablet through foil backing. Administer immediately on tongue and oral disintegrating tablet dissolves in seconds, then swallow with saliva. Liquid not required., Post-procedure prochlorperazine (COMPAZINE) injection 10 mg(Linked Group 2) 10 mg, Intravenous, EVERY 6 HOURS PRN, n ausea, vomiting, Administer over 1-2 Minutes, Starting 06/05/19 at 1306, This is Step 2 of nausea and vomiting management. If nausea not resolved in 15 minutes , give metoclopramide (REGLAN), if order ed (step 3 of nausea and vomiting management) For ordered IV doses 0.1-10 mg, give IV Push undiluted. Each 5mg over 1 minute., Post-procedure prochlorperazine (COMPAZINE) tablet 10 mg(Linked Group 2) 10 mg, Oral, EVERY 6 HOURS PRN, nausea, vomiting, Starting 06/05/19 at 1306, This is Step 2 of nausea and vomiting management. If nausea not resolved in 15 minutes, give metoclopramide (REGLAN), if o rdered (step 3 of nausea and vomiting management), Post-procedur e sodium chloride (PF) 0.9% PF flush 3 mL 3 mL, Intracatheter, EVERY 1 HOUR PRN, l ine flush, for peripheral IV flush post IV meds, Starting 06/05/19 at 1306, Post-procedure SUMAtriptan (IMITREX) tablet 100 mg 100 mg, Oral, DAILY PRN, migraine, Start ing 06/05/19 at 1326, May repeat dose in 2 hours if no relief. Do not exceed 2 doses in 24 hours., Post-procedure Linked Groups Order Group 1: ondansetron (ZOFRAN-ODT) ODT tab 4 mgJump to med 4 mg, Oral, EVERY 6 HOURS PRN, nausea, v omiting, Starting 06/05/19 at 1306
This is Step 1 of nausea and vomiting management. If nausea not resolved in 15 minutes, go to St ep 2 prochlorperazine (COMPAZINE). Do no t push through foil backing. Peel back foil and gently remove. Place on tongue immediately. Administration with liquid unnecessary With dry hands, peel b ack foil backing and gently remove table t. Do not push oral disintegrating tablet through foil backing. Administer immediately on tongue and oral disintegrating tablet dissolves in seconds, then swallow with saliva. Liquid not required.
Po st-procedure Or ondansetron (ZOFRAN) injection 4 mgJump to med 4 mg, Intravenous, EVERY 6 HOURS PRN, na usea, vomiting, Administer over 2-5 Minutes, Starting 06/05/19 at 1306
This is Step 1 of nausea and vomiting management. If nausea not resolved in 15 minutes, go to Step 2 prochlorperazine (COMPAZINE). Irritant. For ordered IV doses 0.1-4 mg, give IV Push undiluted over 2-5 minutes.
Post-procedure Group 2: prochlorperazine (COMPAZINE) injection 10 mgJump to med 10 mg, Intravenous, EVERY 6 HOURS PRN, n ausea, vomiting, Administer over 1-2 Minutes, Starting 06/05/19 at 1306
This is Step 2 of nausea and vomiting management. If nausea not reso lved in 15 minutes, give metoclopramide (REGLAN), if ordered (step 3 of nausea and vomiting management) For ordered IV doses 0.1-10 mg, give IV Push undiluted. Each 5mg over 1 minute.
Post-procedure Or prochlorperazine (COMPAZINE) tablet 10 mgJump to med 10 mg, Oral, EVERY 6 HOURS PRN, nausea, vomiting, Starting 06/05/19 at 1306
This is Step 2 of nausea and vomiting management. If nausea not resolved in 15 minutes, give metoclopram shira (REGLAN), if ordered (step 3 of naus ea and vomiting management)
Post-procedure documented in this encounter Care Teams Patrol Police Lieutenant Relationship Specialty Start Date End Date Nicolasa Hadley MD PCP - General Family Practice 04/18/[address] [address] documented as of this encounter
--- OUTSIDE RECORDS SUMMARY | 2022-03-02 16:09 | XMS_ITS | Encounter Summary ---
:1970 Author Organization [facility] Address [address] [place] [address] Care Team Providers Name Role Phone Mohit Najera PA-C Primary Care Provider [phone] Reason for Visit Reason Onset Date Comments Medication Request 12/09/2005 Topamax Encounter Details Date Type Department Care Team Description 12/09/2005 [facility] Zita Rutledge MD Medication Request Clinic [place] [address] JODI UGARTE (Topamax) [address] [place] [address] [address] [address] [address] [phone] [place], [place] (Work) [address] [phone] Social History Tobacco Use Types Packs/Day Years Used Date Smoking Tobacco: Never Alcohol Use Standard Drinks/Week Comments Yes 0 (1 standard drink = 0.6 oz pure alcoho l) occasionally Sex Assigned at Date Recorded Not on file documented as of this encounter Miscellaneous Notes Telephone Encounter - Terrence Brown - 12/09/2005 2:35 PM CDT Patient notified topamax 100 mg #600 faxed to [facility] [place] in [place] on 11/24/05. Per patient, insurance hasapproved 10 months supply. Pharmacy to call if any questions. Terrence Brown RN Telephone Encounter - Terrence Brown - 12/09/2005 2:30 PM CDT Staff Message copied by TERRENCE BROWN on 12/09/2005 at 2:30 PM ------ Message from: MARYLU GERARD Created: 12/09/2005 at 2:22 PM Regarding: KW/RX FOR GUATMAYLA FOR TOPOMAX HAS IT BEEN CALLED IN/KD HAS IT BEEN CALLED IN TO THE [facility] FOR 10 MOS PT IS GOING TO [facility] ON [address] CALL PT AT [phone] documented in this encounter Plan of Treatment Not on filedocumented as of this encounter Visit Diagnoses Not on filedocumented in this encounter Care Teams Puppet Maker Relationship Specialty Start Date End Date Mohit Najera PA-C PCP - General 09/25/02 04/08/14 [address] [place] [address] documented as of this encounter
--- OUTSIDE RECORDS SUMMARY | 2022-03-02 16:09 | XMS_ITS | Encounter Summary ---
:1970 Author Organization [facility] Address [address] [place] [address] Care Team Providers Name Role Phone No Ref-Primary, Physician Primary Care Provider [phone] Encounter Details Date Type Department Care Team Description 02/21/2019 Travel Social History Tobacco Use Types Packs/Day [...] on filedocumented in this encounter Care Teams Gameroom Technician Relationship Specialty Start Date End Date No Ref-Primary, Physician PCP - General 02/21/19 04/17/19 documented as of this encounter
--- OUTSIDE RECORDS SUMMARY | 2022-03-02 16:09 | XMS_ITS | Encounter Summary ---
:1970 Author Organization [place] [facility] Address [address] [place] [address] Care Team Providers Name Role Phone Mohit Najera PA-C Primary Care Provider [phone] Encounter Details Date Type Department Care Team Description 10/14/2004 Orders Only [facility] Mohit Najera NOT YET Clinic [place] ADIN Ignacio DEFINED (Primary Dx) [id number] [place] [phone] [id number] Social History Tobacco Use Types Packs/Day Years Used Date Smoking Tobacco: Never Alcohol Use Standard Drinks/Week Comments Yes 0 (1 standard drink = 0.6 oz pure alcoho l) occasionally Sex Assigned at Date Recorded Not on file documented as of this encounter Plan of Treatment Not on filedocumented as of this encounter Procedures Procedure Name Priority Date/Time Associated Diagnosis Comme nts HC EEG EXTENDED MONITORING Routine 10/14/2004 DIAGNOSIS NOT YET DEFINED 41-60MN documented in this encounter Results EEG <1 HR (10/14/2004) Specimen (Source) Anatomical Location Collection Method / Collectio n Time Received Time / Laterality Volume 10/14/2004 Narrative This result has an attachment that is no t available. Mohit Najera PA-C PROCEDURES documented in this encounter Visit Diagnoses Diagnosis DIAGNOSIS NOT YET DEFINED - Primary documented in this encounter Care Teams Manager Medicare Relationship Specialty Start Date End Date Mohit Najera PA-C PCP - General 09/25/02 04/08/14 [address] [place] [address] documented as of this encounter
--- OUTSIDE RECORDS SUMMARY | 2022-03-02 16:09 | XMS_ITS | Encounter Summary ---
:1970 Author Organization [facility] Address [address] [place] [address]. [place] [address] Care Team Providers Name Role Phone Nicolasa Hadley MD Primary Care Provider [phone] Encounter Details Date Type Department Care Team Description 06/13/2019 Travel Social History Tobacco Use Types Packs/Day [...] on filedocumented in this encounter Care Teams Rn Bsn Relationship Specialty Start Date End Date Nicolasa Hadley MD PCP - General Family Practice 04/18/[address] [address] documented as of this encounter
--- OUTSIDE RECORDS SUMMARY | 2022-03-02 16:09 | XMS_ITS | Encounter Summary ---
:1970 Author Organization [place] Address [address] [place] [address]. [place] [address] Care Team Providers Name Role Phone Mohit Najera PA-C Primary Care Provider [phone] Reason for Referral - Closed Specialty Diagnoses / Procedures Referred By Contact Refer red To Contact Diagnoses Routine general medical examination at a [facility] facility Mohit Najera PA-C [address] [place], [place] [address] Referral ID Status Reason Start Date Expiration Date Visits Requ ested Visits Authorized [id number] Closed 08/17/2005 05/08/2011 1 1 Reason for Visit Reason Comments Physical Moving out of country. Encounter Details Date Type Department Care Team Description 08/17/2005 Office Visit [facility] Mohit Najera ROUTINE MEDICAL EXAM Clinic [place] ADIN Ignacio (Primary Dx) [id number] [facility] [address] [place] [phone] [phone] Social History Tobacco Use Types Packs/Day Years Used Date Smoking Tobacco: Never Alcohol Use Standard Drinks/Week Comments Yes 0 (1 standard drink = 0.6 oz pure alcoho l) occasionally Sex Assigned at Date Recorded Not on file documented as of this encounter Last Filed Vital Signs Vital Sign Reading Time Taken Comments Blood Pressure 110/68 08/17/2005 8:45 AM CDT Pulse - - Temperature - - Respiratory Rate - - Oxygen Saturation - - Inhaled Oxygen Concentration - - Weight 70.8 kg (156 lb) 08/17/2005 8:45 AM CDT Height 167.6 cm (5' 6) 08/17/2005 8:45 AM CDT Body Mass Index 25.18 08/17/2005 8:45 AM CDT documented in this encounter Progress Notes Mohit Shaffer - 08/17/2005 9:06 AM CDT CC: Steph Frank is a 34 year old female who presents for a comprehensive physical exam. SOCIAL: . One daughter age 4 and 1 son age 7). 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 HABITS: SMOKE: Never ETOH: 0-4 per year EXERCISE: 20min walking daily. 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 Family History Negative Son Allergies Daughter Comment: Significant generalized rxn to bug bites. ROS: CONSTITUTIONAL: NEGATIVE for fatigue, fever, weakness,night sweats, unexplained weight changes. EYES:Has not had full adult eye exam. ENT/MOUTH: Negative for allergic rhinitis or other chronic ENT problems. RESP: Non-smoker. Denies any SOB, asthma hx or other resp hx. CV: Denies any chest pain/pressure, palpitations, FISCHER, PND, edema or other cardiac problems. GI: Hx of rectal pocket following delivery of 2 children. Stooling requires vaginal splinting. No acute changes x 4 years. Following with GI and will need surgical correction. Denies any black tarry or bloody stools. Denies any GI upset or heartburn. No FMHX of colon CA. Mother has hx of colon polyps. CAMPUS SUPERVISOR: . . Condoms for contraception. Cycles regular. Last pap normal. Denies any hx of abnormal paps. Denies any FMHX of endometrial or ovarian CA. No other CAMPUS SUPERVISOR hx. No abnormal discharge. No vaginal pain. Declined offer for STD check. URINARY: No dysuria, hematuria, or bladder irritability sxs. No hx of resistant UTI's, incontinence,kidney infection or kidney stones. MUSCULOSKELETAL: Some right knee peripatellar and upper tibia knee pain. Denies any other problems with muscle pain, weakness, instability, or joint stiffness. INTEGUMENTARY/SKIN: Denies any suspicious, itchy or changing moles. BREAST: Does regular SBE. Denies any lumps or changes. Denies any family hx of breast CA. NEURO: Seizure d/o dating back to age 1. 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 Denies any loss of sensation, numbness, tingling, tremors or balance problems. Pt follows with Dr. Richardson at [facility] Clinic of neurology. Pt had a recetn EEG that shows ongoing need to continue Topamax. ENDOCRINE: Denies any symptoms of thyroid disorders or diabetes. HEME/ALLERGY/IMMUNE: Denies any hx of bleeding or clotting disorders in self or family members. PSYCHIATRIC: Denies any sxs of mood disorders. EXAM: BP 110/68 Ht 5' 6 (1.68m) Wt 156 lbs (70.8kg) LMP 08/09/2005 GENERAL APPEARANCE:healthy, alert and no distress ORGAN EXAMS: EYES: PERRLA. Undialated fundoscopic exam grossly within normal limits. HENT: Nasal and oral mucosa unremarkable. Throat and TM'S normal. NECK: No masses, carotid bruits, adenopathy or thyromegaly. RESP: CTA bilaterally. No wheezes, rales or ronchi. CV: RRR with normal S1-S2. No murmurs or extra heart sounds. Carotid, radial, posterior tibial and dorsalis pedis pulses good and equal bilaterally. No edema. No JVD or carotid bruits. CHEST (BREAST): Breasts are equally symmetrical bilaterally. No skin changes or nipple discharge. Tissue is mildly and diffusely fibrocystic bilaterally without any distinctly palpable masses. No supraclavicular or axillary adenopathy either. LYMPH: No cervical, supraclavicular or axillary adenopathy. GI: Positive normo-active bowel sounds. No organomegaly or masses. Soft. No CVA tenderness. : Normal female external genitalia. Vaginal mucosa pink and moist without lesions. Cervix well visualized and unremarkable. No CMT. Uterus normal sized, mobile and without masses. Adnexa negative. Urethra normal. No suprapubic pain. MS: Normal ROM UE, LE, spine. No muscle atrophy. Nontender. SKIN: No rashes. Normal color. No suspicious lesions/moles. NEURO: Cranial nerves II-XII intact. UE and LE DTR's, strength and sensation intact and equal bilaterally. Gait within normal limits. PSYCH: Mood good and otherwise unremarkable. ASSESSMENT/PLAN: V70.0 ROUTINE MEDICAL EXAM (primary encounter diagnosis) Plan: A THIN LAYER PAP SCREEN, CONSULT OPHTHALMOLOGY, CBC WITH PLATELETS, UA MICRO IF POSITIVE, GLUCOSE documented in this encounter Nursing Notes 08/17/2005 8:45 AM CDT >> LAURA SALDANA 08/17/2005 8:57 am Patient presents with: Physical - Moving out of country. Initial BP 110/68 Ht 5' 6 (1.68m) Wt 156 lbs (70.8kg) LMP 08/09/2005 Body mass index is 25.19kg/(m^2).. BP completed using cuff size regular David Saldana LPN documented in this encounter Plan of Treatment Not on filedocumented as of this encounter Procedures Procedure Name Priority Date/Time Associated Diagnosis Comme nts CL AFF CBC WITH Routine 08/17/2005 9:54 AM Routine Medical Exa m Results for this PLATELETS CDT procedure are i n the results section. HCL GLUCOSE Routine 08/17/2005 9:54 AM Routine Medical Exam R esults for this CDT procedure are i n the results section. HCL UA MICRO IF Routine 08/17/2005 9:19 AM Routine Medical Exa m Results for this POSITIVE CDT procedure are i n the results section. CL AFF MICRO Routine 08/17/2005 9:19 AM Results f or this EXAM-URINE CDT procedure are i n the results section. HCL PAP THIN LAYER Routine 08/17/2005 12:00 AM Routine Medical Exam Results for this SCREEN CDT procedure are i n the results section. documented in this encounter Results GLUCOSE (08/17/2005 9:54 AM CDT) P athologist Signature Glucose 79 60 - 110 [facility] mg/dL CLINIC LAB Specimen Anatomical Collection Method Collection Time Receive d Time (Source) Location / / Volume Laterality 08/17/2005 9:54 AM 6 9:56 CDT AM CDT Mohit Najera PA-C LABORATORY Performing Organization Address City/State/ZIP Code Phon e Number [address] [address] [facility] (ABNORMAL) CBC WITH PLATELETS (08/17/2005 9:54 AM CDT) Analysis Performed At Patho logist Time Signature WBC 3.6 (L) 4.0 - 11.0 [place] 10e9/L [facility] RBC Count 4.28 3.8 - 5.2 [place] 10e12/L [facility] Hemoglobin 14.2 11.7 - [place] 15.7 g/dL [facility] Hematocrit 39.5 35.0 - [place] 47.0 % [facility] MCV 92 78 - [address] [place] [address] [facility] MCH 33.2 (H) 26.5 - [place] 33.[address] [facility] MCHC 35.9 32.0 - [place] 36.0 g/dL [facility] RDW 12.4 10.0 - [place] 15.0 % [facility] Platelet Count 197 150 - 450 [place] 10e9/L [facility] Specimen Anatomical Collection Method Collection Time Receive d Time (Source) Location / / Volume Laterality 08/17/2005 9:54 AM 6 9:56 CDT AM CDT Mohit Najera PA-C LABORATORY Performing Organization Address [facility] Phon e Number [address] [address] [facility] (ABNORMAL) MICRO EXAM-URINE (08/17/2005 9:19 AM CDT) [facility] gist Method Time Signature WBC Urine 2-5 (A) 0 - 2 [place] /HPF [facility] RBC Urine O - 2 0 - 2 [place] /HPF [facility] Squamous EPI Few FEW /LPF [facility] Bacteria Urine Few (A) NEG /HPF [facility] Amorphous Few (A) NEG /HPF [place] Urates [facility] Mucous Urine Present (A) NEG /LPF [facility] Specimen Anatomical Collection Method Collection Time Receive d Time (Source) Location / / Volume Laterality 08/17/2005 9:19 AM 6 9:21 CDT AM CDT Mohit Najera PA-C LABORATORY Performing Organization Address [facility] Phon e Number [address] [address] [facility] (ABNORMAL) UA MICRO IF POSITIVE (08/17/2005 9:19 AM CDT) [facility] Method Time Signature Color Urine Yellow [facility] Appearance Urine Slightly [place] Cloudy [facility] Glucose Urine Negative NEG mg/dL [facility] Bilirubin Urine Negative NEG [facility] Ketones Urine Negative NEG mg/dL [facility] Specific [place] 1.020 1.003 - [place] Urine 1.035 [facility] Blood Urine Negative NEG [facility] pH Urine 6.5 5.0 - 7.[address] [place] [address] [facility] Protein Albumin Negative NEG mg/dL [place] Urine [facility] Urobilinogen 0.2 0.2 - 1.0 [place] Urine EU/dL [facility] Nitrite Urine Negative NEG [facility] Leukocyte Trace (A) NEG [place] Esterase Urine [facility] Source Midstream [place] Urine [facility] Specimen Anatomical Collection Method Collection Time Receive d Time (Source) Location / / Volume Laterality 08/17/2005 9:19 AM 6 9:21 CDT AM CDT Mohit Najera PA-C LABORATORY Performing Organization Address City/State/ZIP Code Phon e Number [facility] [address] [place] [address] [facility] A THIN LAYER PAP SCREEN (08/17/2005 12:00 AM CDT) Component Value Ref Test Analysis Performed At [facility] Range Method Time Signature PAP NIL COPATH Copath Report COPATH Patient Name: STEPH FRANK MR#: [id number] Specimen #: [id number] Collected: 08/17/2005 Received: 08/18/2005 Reported: 08/18/2005 15:00 Ordering Phy(s): MOHIT NAJERA SPECIMEN/STAIN PROCESS: Pap thin layer prep screening ([facility]) ? Pap-Cyto x 1, Reflex HPV x 1 SOURCE: Cervical, endocervical ---- Pap thin layer prep screening ([facility]) SPECIMEN ADEQUACY: Satisfactory for evaluation. -Transformation zone component present. CYTOLOGIC INTERPRETATION: Negative for Intraepithelial Lesion or Malignancy Electronically signed out by: DIPTI Raymundo (ASCP) [facility] CLINICAL HISTORY: LMP: 08-09-05 Previous normal pap Date of Last Pap: 12-29-04, TESTING LAB LOCATION: [address] ??[phone] COLLECTION SITE: Client: ??[facility] Location: [facility] (R) Specimen (Source) Anatomical Collection Method Collection Time Re ceived Time Location / / Volume Laterality 08/17/2005 08/18/2005 9:27 AM CDT Mohit Najera PA-C LABORATORY Performing Organization Address City/State/ZIP Code Phon e Number [place] documented in this encounter Visit Diagnoses Diagnosis Routine general medical examination at a health care facility - Primary documented in this encounter Care Teams Medical Assembler Relationship Specialty Start Date End Date Mohit Najera PA-C PCP - General 09/25/02 04/08/14 [address] [place] [address] documented as of this encounter
--- OUTSIDE RECORDS SUMMARY | 2022-03-02 16:09 | XMS_ITS | Encounter Summary ---
:1970 Author Organization [place] Address [address] [place] [address] Care Team Providers Name Role Phone Mohit Najera PA-C Primary Care Provider [phone] Reason for Visit Reason Comments Pharyngitis with fever and CULLEN Encounter Details Date Type Department Care Team Description 01/25/2005 Office Visit [facility] Tan Bower MD ACUTE PHARYNGITIS Clinic [place] [address] [address] (Primary Dx) [address] [place] [address] [phone] Social History Tobacco Use Types Packs/Day Years Used Date Smoking Tobacco: Never Alcohol Use Standard Drinks/Week Comments Yes 0 (1 standard drink = 0.6 oz pure alcoho l) occasionally Sex Assigned at Date Recorded Not on file documented as of this encounter Last Filed Vital Signs Vital Sign Reading Time Taken Comments Blood Pressure 108/72 01/25/2005 1:30 PM CDT Pulse - - Temperature 37 ??C (98.6 ??F) 01/25/2005 1:30 PM CDT Respiratory Rate - - Oxygen Saturation - - Inhaled Oxygen Concentration - - Weight - - Height - - Body Mass Index - - documented in this encounter Progress Notes Tan Bower - 01/25/2005 1:54 PM CDT SUBJECTIVE: 34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 Nohistory of rheumatic fever. Other symptoms: none. OBJECTIVE: Vitals as noted above. Appears healthy and alert. Ears: normal Oropharynx: normal Neck: normal, supple and no adenopathy Lungs: chest clear to IPPA and clear to IPPA Rapid Strep test is negative ASSESSMENT: Viral pharyngitis PLAN: Per orders. Gargle, use acetaminophen or other OTC analgesic, and take Rx fully as prescribed.Call if other family members develop similar symptoms. See prn. documented in this encounter Nursing Notes 01/25/2005 1:30 PM CDT >> CHRISTA GOSS 01/25/2005 1:48 pm Coretta Monaco presents for ST with CULLEN and night sweats. Pt exposed to strep. Strep test pending. Initial BP 108/72 Temp (Src) 98.6 (Oral) Estimated Body Mass Index is 26.87 kg/(m^2) as calculatedfrom: Height of 5' 5.5 (1.664m) as of 12/29/04 Weight of 164 lbs (74.390 kg) as of 12/29/04. BP completed using cuff size: regular Christa Goss CMA documented in this encounter Plan of Treatment Not on filedocumented as of this encounter Procedures Procedure Name Priority Date/Time Associated Diagnosis Comme nts HCL BETA STREP Routine 01/25/2005 1:53 PM Acute Pharyngitis Re sults for this CONFIRM CDT procedure are i n the results section. HCL STREP GROUP A Routine 01/25/2005 1:53 PM Acute Pharyngitis Results for this AG (RAPID) CDT procedure are i n the results section. documented in this encounter Results BETA STREP CONFIRM (01/25/2005 1:53 PM CDT) Component Value Ref Test Analysis Performed At [facility] Range Method Time Signature Specimen Throat [place] Description [facility] Culture Micro No Beta [place] Streptococcus [facility] LAB Report status FINAL [id number] [facility] Specimen Anatomical Collection Method Collection Time Receive d Time (Source) Location / / Volume Laterality 01/25/2005 1:53 PM 5 2:02 CDT PM CDT Tan Bower MD LABORATORY Performing Organization Address City/[facility]/ZIP Code Phon e Number [facility] [id number] [place] [address] [facility] STREP GROUP A AG (RAPID) (01/25/2005 1:53 PM CDT) Component Value Ref Test Analysis Performed At [facility] Range Method Time Signature Specimen Throat [place] Description [facility] Rapid Strep A NEGATIVE: No Group A strepto coccal antigen detected by immunoassay, await [place] Screen culture report. [facility] Report status FINAL [id number] [facility] Specimen Anatomical Collection Method Collection Time Receive d Time (Source) Location / / Volume Laterality 01/25/2005 1:53 PM 5 2:02 CDT PM CDT Tan Bower MD LABORATORY Performing Organization Address City/[facility]/ZIP Code Phon e Number [facility] [id number] [place] [address] [facility] documented in this encounter Visit Diagnoses Diagnosis Acute pharyngitis - Primary documented in this encounter Care Teams Fixed Wing Aircraft Flight Engineer Relationship Specialty Start Date End Date Mohit Najera PA-C PCP - General 09/25/02 04/08/14 [address] [place] [address] documented as of this encounter
--- OUTSIDE RECORDS SUMMARY | 2022-03-02 16:09 | XMS_ITS | Encounter Summary ---
:1970 Author Organization [place] Address [address] [place] [address] Care Team Providers Name Role Phone Nicolasa Hadley MD Primary Care Provider [phone] Encounter Details Date Type Department Care Team Description 04/18/2019 Prep for Procedure [facility], Non- toxic Surgery Clinic MD Filomena multinodular goiter [place] [address] (Primary Dx) [address] [place] [phone] Social History Tobacco Use Types Packs/Day Years Used Date Smoking Tobacco: Never Smokeless Tobacco: Never Alcohol Use Standard Drinks/Week Comments Yes 0 (1 standard drink = 0.6 oz pure alcoho l) occasionally Sex Assigned at Date Recorded Not on file documented as of this encounter Plan of Treatment Not on filedocumented as of this encounter Visit Diagnoses Diagnosis Non-toxic multinodular goiter - Primary Nontoxic multinodular goiter documented in this encounter Care Teams Manager Product Design Relationship Specialty Start Date End Date Nicolasa Hadley MD PCP - General Family Practice 04/18/[address] [address] documented as of this encounter
--- OUTSIDE RECORDS SUMMARY | 2022-03-02 16:09 | XMS_ITS | Encounter Summary ---
:1970 Author Organization [place] Address [facility] [place] [address] Care Team Providers Name Role Phone No Ref-Primary, Physician Primary Care Provider [phone] Reason for Referral Consultation (Routine) - Closed Specialty Diagnoses / Procedures Referred By Contact Refer red To Contact Diagnoses Thyroid nodule Latasha Escobar [facility] [address] [place], [place] [address] [place] [address] Fax: Referral ID Status Reason Start Date Expiration Date Visits Requ ested Visits Authorized [id number] Closed 02/23/2019 02/23/2020 1 1 Reason for Visit Reason Comments Thyroid Problem nodules Encounter Details Date Type Department Care Team Description 02/21/[address] [facility] Latasha Escobar Thyroid no dule Clinic [place] GERALDINE Alicia CNP (Primary Dx) [address] [place] [id number] [phone] Social History Tobacco Use Types Packs/Day Years Used Date Smoking Tobacco: Never Smokeless Tobacco: Never Alcohol Use Standard Drinks/Week Comments Yes 0 (1 standard drink = 0.6 oz pure alcoho l) occasionally Sex Assigned at Date Recorded Not on file documented as of this encounter Last Filed Vital Signs Vital Sign Reading Time Taken Comments Blood Pressure 109/72 02/21/2019 4:14 PM CDT Pulse 91 02/21/2019 4:14 PM CDT Temperature 36.6 ??C (97.9 ??F) 02/21/2019 4:14 PM CDT Respiratory Rate 14 02/21/2019 4:14 PM CDT Oxygen Saturation - - Inhaled Oxygen Concentration - - Weight 81.2 kg (179 lb) 02/21/2019 4:14 PM CDT Height - - Body Mass Index - - documented in this encounter Progress Notes Latasha Escobar, GERALDINE [facility] - 02/21/2019 4:00 PM CDT Name: Coretta Monaco Seen at the request of No ref. provider found for thyroid nodule. HPI: Coretta Monaco is a 48 year old female who presents for the evaluation of thyroid nodules. Nodules have been known since 02/2012. 08/07/2015: Thyroid ultrasound done at [facility] reports right lobe 5.7 x 1. X 2.8 cm with multiple nodules, the largest increased in size compared with 02/2012 now measuring 2.7 x 1.5 x 1.9 cm (previously 1.3 x 2.4 x 1.0 cm), all other reported nodules < 1.0 cm. Left lobe measured 5.0 x 1.2 x 1.9 with a single nodule, increased in size compared with 02/2012 and now measuring 1.5 x 0.9 x 1.1 cm. 08/14/2015: FNA biopsy done at [facility] of the dominant right nodule and the left nodule consistent with benign colloid nodule. 08/18/2016: Repeat thyroid US done at [facility] reports right lobe increased to 6.3 x 1.7 x 2.8 cm with the largest right nodule increased in size and now measuring 3.4 x 1.6 x 2.3 cm. Left lobe increased in size and now measuring 5.4 x 1.8 x 1.6 cm. The left lobe nodule is stable at 1.4 x 0.8 x 1.2 cm. 09/02/2017: Repeat thyroid US done at [facility] showed no significant changes in thyroid gland size or nodule(s) size but did report a new 9 mm right lobe nodule. 09/20/2018: Most recent thyroid ultrasound reports right lobe measuring 6.4 x 2.4 x 2.2 cm with the dominant right nodule decreasing in size and now measuring 2.8 x 2.3 x 2.5 cm. The 9 mm nodule that was newly noted in 2018 increased slightly in size to 1.0 x 0.8 x 1.0. Left lobe measured 5.5 x 1.7 x 1.9 and left nodule also slightly decreased compared with 2018, now measuring 1.4 x 0.9 x 1.2. Over the years since nodules were first detected, she has noted increasing difficulty swallowing - particularly pills. She is also very careful to chew her food very well, in excess of what she thinks is a normal amount of chewing, or she chokes on the food bolus. She is concerned about this and the interim growth of the nodules since first detected in 2011. She is wondering if continued monitoring with repeat ultrasound is her only or best option. Thyroid function tests have been in normal range. Most recent TSH done 09/19/2018 at [facility] was 0.907. She denies any personal history of radiation exposure to the head or neck. FH is + for PGM with a goiter. History of radiation exposure: No History of thyroid dysfunction: No Palpitations: No Changes to hair or skin: No Diarrhea/Constipation:No Dysphagia or Shortness of breath: Yes, see above comments HPI Changes in weight: Nothing unexplained PMH/PSH: Past Medical History: Diagnosis Date ??? Abnormal maternal glucose tolerance, antepartum glucose abnormality after delivery x 2 weeks ??? MEDICAL HISTORY OF - rectal pocket ??? 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 C NONSPECIFIC PROCEDURE 1997 NVD Family Hx: Family History Problem Relation Age of Onset ??? Arthritis Mother OA ??? Neurologic Disorder Mother lupus ??? Depression Mother ??? Alcohol/Drug Mother ??? Heart Disease Mother Congenital valve abnormality requiring surgery ??? Respiratory Paternal Grandfather lung ca ??? Heart Disease Paternal Grandmother of mi ??? Arthritis Sister RA ??? Hypertension Father ??? Diabetes Father Borderline DM. ??? Family History Negative Son ??? Allergies Daughter Significant generalized rxn to bug bites. Thyroid disease: Yes, PGM with goiter Social Hx: Social History Socioeconomic History ??? Marital status: Spouse name: Not on file ??? Number of children: Not on file ??? Years of education: Not on file ??? Highest education level: Not on file Occupational History ??? Not on file Social Needs ??? Financial resource strain: Not on file ??? Food insecurity: Worry: Not on file Inability: Not on file ??? Transportation needs: Medical: Not on file Non-medical: Not on file Tobacco Use ??? Smoking status: Never Smoker ??? Smokeless tobacco: Never Used Substance and Sexual Activity ??? Alcohol use: Yes Comment: occasionally ??? Drug use: No ??? Sexual activity: Yes Partners: Male control/protection: Condom Lifestyle ??? Physical activity: Days per week: Not on file Minutes per session: Not on file ??? Stress: Not on file Relationships ??? Social connections: Talks on phone: Not on file Gets together: Not on file Attends episcopal service: Not on file Active member of club or organization: Not on file Attends meetings of clubs or organizations: Not on file Relationship status: Not on file ??? Intimate partner violence: Fear of current or ex partner: Not on file Emotionally abused: Not on file Physically abused: Not on file Forced sexual activity: Not on file Other Topics Concern ??? Not on file Social History Narrative ??? Not on file MEDICATIONS: has a current medication list which includes the following prescription(s): topamax. Review of Systems 10 point ROS neg other than the symptoms noted above in the HPI. Physical Exam VS: BP 109/72 (BP Location: Right arm, Patient Position: Chair, Cuff Size: Adult Large) Pulse 91 Temp 97.9 ??F (36.6 ??C) (Oral) Resp 14 Wt 81.2 kg (179 lb) ? No GENERAL: AXOX3, NAD, well dressed, answering questions appropriately, appears stated age. HEENT: no exophthalmos, no proptosis, no lig lag, no retraction NECK: Supple, thyroid gland enlarged and irregular/nodular, 3 cm right nodule distinctly palpable - it is smooth, firm, freely mobile, nontender. 1.5 cm left nodule not distinctly palpable. No adenopathy CV: RRR LUNGS: clear EXTREMITIES: no edema NEUROLOGY: CN grossly intact, no tremors MSK: grossly intact LABS: TFTs: TSH: 0.907 (09/19/2018 - [facility]) Thyroid Ultrasound: Copies available for review as scanned documents. All pertinent notes, labs, and images personally reviewed by me. A/P Ms.Kristen Victorina Monaco is a 48 year old here for the evaluation of thyroid nodule: Thyroid nodules are common and are frequently benign. Data suggest that the prevalence of palpable thyroid nodules is 3% to 7% in [place]; the prevalence is as high as 50% based on ultrasonography (US) or autopsy data. All patients with a palpable thyroid nodule, however, should undergo US examination. US-guided FNA (US-FNA) is recommended for nodules ?10 mm; US-FNA is suggested for nodules <10 mm only if clinical information or US features are suspicious. Causes of thyroid Nodules: Benign (Multinodular goiter, Elliot???s thyroiditis, Simple or hemorrhagic cysts, Follicular adenomas, Subacute thyroiditis) or Malignant(Papillary carcinoma, Follicular carcinoma, H??rthle cell carcinoma, Medullary carcinoma, Anaplastic carcinoma, Primary thyroid lymphoma, or Metastatic malignant lesion). MultiNodule: The risk of cancer is not significantly higher in palpable solitary thyroid nodules than in multinodular lesions or in nodules in diffuse goiters. In multinodular thyroid glands, the cytologic sampling should be focused on lesions characterized by suspicious US features rather than on larger or clinically dominant nodules. Cyst: Most complex thyroid nodules with a dominant fluid component are benign. USFNA, however, should always be performed because the rare papillary thyroid carcinoma (PTC) can be cystic. An unsatisfactory (nondiagnostic) specimen usually results from a cystic nodule that yields few or no follicular cells. Reaspiration yields satisfactory results in 50% of cases. Fine-Needle Aspiration Cytologic Diagnosis: 70% of FNA specimens are classified as benign; in addition, 5% are malignant, 10% are suspicious, and 10% to 20% are nondiagnostic or unsatisfactory. At surgical intervention, about 20% of such indeterminate/suspicious specimens are found to be malignant lesions. Despite good initial technique, repeated biopsy, and US-FNA, approximately 5% of nodules still remain nondiagnostic. Such thyroid nodules should be surgically excised. An incidental thyroid nodule without microcalcifications measuring <1.0 cm in size in a patient <35 years old or <1.5 cm in a patient >35 years old is most likely benign and does not typically require follow-up. Discussed the option of continuing to monitor the nodules for growth with repeat US vs surgery. She reporst some obstructive symptoms at this time. She is concerned about the continued growth of the thyroid nodules since 2011, although most of this growth occurred between 2011 and 2016 - repeat US in 2017 and 2018 relatively stable with the most recent US 09/2018 showing the dominant right and left nodules possibly decreasing in size. Both dominant nodules were previously biopsied 08/2015 and were consistent with benign colloid nodules. She prefers to treat the nodules surgically at this time. I think this is reasonable given her obstructive symptoms. Referral to Dr. Filomena Frank provided. Labs ordered today: No orders of the defined types were placed in this encounter. Radiology/Consults ordered today: None More than 50% of the time spent with Ms. Monaco on counseling / coordinating her care - diagnosis and management of thyroid nodules discussed. Surgical options for thyroid nodules discussed in detail: Discussed that there are several thyroid operations that a surgeon may perform: lumpectomy, lobectomy, subtotal thyroidectomy - leaving a small amount of thyroid tissue bilaterally, near-total thyroidectomy - leaving about one gm or cm of thyroid tissue on one side); or 4) total thyroidectomy, which removes all identifiable thyroid tissue. The most serious possible risks of thyroid surgery include: 1) bleeding 2) injury to the recurrent laryngeal nerve that can cause hoarseness, and 3) damage to the parathyroid glands. These complications occur more frequently in patients with extensive lymph node involvement and invasive tumors or patients with large goiters. .Total face to face time was 45 minutes. Follow-up: TBD following surgical consult Latasha Escobar NP Endocrinology [facility] CC: documented in this encounter Nursing Notes Kalpana Salas CMA - 02/21/2019 4:00 PM CDT Surgical referral faxed to Dr. Frank at fax# [phone]. (ph# [phone]). Kalpana Salas CMA on 02/23/2019 at 2:59 PM documented in this encounter Plan of Treatment Scheduled Referrals Name Type Priority Associated Diagnoses Order S chedule GENERAL SURG ADULT Referral Routine Thyroid nodule Ordered : 02/23/2019 REFERRAL documented as of this encounter Visit Diagnoses Diagnosis Thyroid nodule - Primary Nontoxic uninodular goiter documented in this encounter Care Teams Tester Vibrator Equipment Relationship Specialty Start Date End Date No Ref-Primary, Physician PCP - General 02/21/19 04/17/19 documented as of this encounter
--- OUTSIDE RECORDS SUMMARY | 2022-03-02 16:09 | XMS_ITS | Encounter Summary ---
:1970 Author Organization [place] Address [address] [place] [address] Care Team Providers Name Role Phone Nicolasa Hadley MD Primary Care Provider Reason for Visit Reason Comments Consult Thyroid Nodule Encounter Details Date Type Department Care Team Description 04/18/2019 Office Visit [facility] Filomena Frank, Non- toxic multinodular Surgery Clinic goiter (Primary Dx) [place] [address] [facility] [address] [place] [phone] Social History Tobacco Use Types Packs/Day Years Used Date Smoking Tobacco: Never Smokeless Tobacco: Never Tobacco Cessation: Counseling Given: Yes Alcohol Use Standard Drinks/Week Comments Yes 0 (1 standard drink = 0.6 oz pure alcoho l) occasionally Sex Assigned at Date Recorded Not on file documented as of this encounter Last Filed Vital Signs Vital Sign Reading Time Taken Comments Blood Pressure 120/86 04/18/2019 3:36 PM LEATHER STAMPER Pulse 79 04/18/2019 3:36 PM LEATHER STAMPER Temperature - - Respiratory Rate 16 04/18/2019 3:36 PM LEATHER STAMPER Oxygen Saturation 98% 04/18/2019 3:36 PM LEATHER STAMPER Inhaled Oxygen Concentration - - Weight 78 kg (172 lb) 04/18/2019 3:36 PM LEATHER STAMPER Height 161.9 cm (5' 3.75) 04/18/2019 3:36 PM LEATHER STAMPER Body Mass Index 29.76 04/18/2019 3:36 PM LEATHER STAMPER documented in this encounter Progress Notes Filomena Frank MD - 04/18/2019 3:45 PM CST History of Present Illness Coretta Monaco is a 48 year old female who is referred from Latasha Escobar NP for surgery consultation regarding multinodular goiter. Coretta had a thyroid nodule first noted in 2008. She denies fatigue, heat/cold intolerance, bowel/skin changes or CVS symptoms. Does report weight fluctuation. She reports positional neck discomfort and swallowing difficulty. She denies shortness of breath, cough and hoarseness. She does not have a family history of thyroid cancer. She denies a personal history of radiation exposure. Coretta is not on thyroid medications. Thyroid medications include: None. Coretta has no prior neck surgery.. Past Medical History: Diagnosis Date ??? Abnormal maternal glucose tolerance, antepartum glucose abnormality after delivery x 2 weeks ??? MEDICAL HISTORY OF - rectal pocket ??? 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 C NONSPECIFIC PROCEDURE 1998 NVD Smoking History: has never smoked. Review Of Systems: 10 point ROS is negative except as stated in the History of the Present Illness Physical Exam: BP 120/86 (BP Location: Left arm, Patient Position: Sitting, Cuff Size: Adult Regular) Pulse 79 Resp 16 Ht 1.619 m (5' 3.75) Wt 78 kg (172 lb) SpO2 98% BMI 29.76 kg/m?? Well developed, well nourished female in no apparent distress. HEENT: Normocephalic, atraumatic. Eyes without exophthalmos. Neck: Slender, long and Visible right nodule. Range of motion is normal. No neck masses. Thyroid: enlarged and solitary nodule right easily palpable, comes above the clavicles. Lymph: No cervical adenopathy. Respirations: Unlabored. Neurologic: Alert. Speech is clear. Moves all extremities with good strength Skin: Warm and dry. Psychologic: Alert and appropriate range of emotions. Imaging: All imaging personally reviewed with Coretta Ultrasound: 09/20/2018: Most recent thyroid ultrasound reports right [...] now measuring 1.4 x 0.9 x 1.2. Labs: TSH 0.907 FNA Biopsy: 4 biopsies, all negative. Both sides. Assessment and Plan: Coretta has multinodular goiter and compression symptoms. I am recommending herfor total thyroidectomy. Coretta is aware of the risks to the recurrent laryngeal nerve and to the parathyroid glands during surgery. She is interested in proceeding with surgery sometime in the next several weeks. Filomena Frank MD Please route to : Primary Care Provider (PCP) and Referring Provider or send clinic note to: Primary Care Provider (PCP) 45 minutes spent with the patient, over 50% as counseling. HER STAMPER documented in this encounter Plan of Treatment Not on filedocumented as of this encounter Visit Diagnoses Diagnosis Non-toxic multinodular goiter - Primary Nontoxic multinodular goiter documented in this encounter Care Teams Spray Machine Tender Relationship Specialty Start Date End Date Nicolasa Hadley MD PCP - General Family Practice 04/18/[address] [address] documented as of this encounter
--- OUTSIDE RECORDS SUMMARY | 2022-03-02 16:09 | XMS_ITS | Encounter Summary ---
:1970 Author Organization [facility] Address [address] [place] [address] [address] Care Team Providers Name Role Phone Mohit Najera PA-C Primary Care Provider [phone] Reason for Visit Reason Comments Travel Clinic Traveling to [facility] 12/14. Will be staying 11 months Encounter Details Date Type Department Care Team Description 10/29/2005 Office Visit [facility] Zita Rutledge MD COUNSELING OTHER Clinic [place] SPECIFIED (Primary Dx) [address] [facility] [address] [address] [address] [phone] [place], [place] (Work) [address] Social History Tobacco Use Types Packs/Day Years Used Date Smoking Tobacco: Never Alcohol Use Standard Drinks/Week Comments Yes 0 (1 standard drink = 0.6 oz pure alcoho l) occasionally Sex Assigned at Date Recorded Not on file documented as of this encounter Last Filed Vital Signs Vital Sign Reading Time Taken Comments Blood Pressure 100/58 10/29/2005 9:30 AM CDT Pulse 80 10/29/2005 9:30 AM CDT Temperature 36.8 ??C (98.3 ??F) 10/29/2005 9:30 AM CDT Respiratory Rate 16 10/29/2005 9:30 AM CDT Oxygen Saturation - - Inhaled Oxygen Concentration - - Weight 72.1 kg (159 lb) 10/29/2005 9:30 AM CDT Height 161.9 cm (5' 3.75) 10/29/2005 9:30 AM CDT Body Mass Index 27.51 10/29/2005 9:30 AM CDT documented in this encounter Progress Notes Zita Rutledge MD - 10/29/2005 9:57 AM CDT SUBJECTIVE: Coretta Monaco is a 34 year old female who is here for travel clinic. 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 Going to be in the [facility] and then traveling. Has a history of seizures that are well controlled. No recent illness. No CP, SOB. Past Medical History Diagnosis Date ??? ABN GLUCOSE-ANTEPARTUM glucose abnormality after delivery x 2 weeks ??? 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 MEDICAL HISTORY OF - rectal pocket Past Surgical History Procedure Date ??? Nonspecific procedure 1998 NVD Medications the patient reported as taking as of 10/29/2005: TOPAMAX 100 MG OR TABS^ 1 TABLET TWICE DAILY^ Disp: 60^ Rfl: 0 Allergies Allergen Reactions ??? No Known Drug Allergies OBJECTIVE: BP 100/58 Pulse 80 Temp (Src) 98.3 (Oral) Resp 16 Ht 5' 3.75 (1.62m) Wt 159 lbs (72.1kg) LMP 10/25/2005 Body mass index is 27.52 kg/(m^2). Gen: Awake, alert, answering questions appropriately HEENT: TM's clear bilaterally. Mucous Membranes pink, moist. Sclera nonicteric. CV: RRR No S3, S4, murmurs Lungs: CTA bilaterally Abdomen: + BS. Soft. NT/ND. 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 Plan: TYPHOID VACCINE, ORAL, HEPA/HEPB VACCINE ADULT IM, CIPRO 500 MG OR TABS Planning on getting malaria prophylaxis down there. Return if no improvement or worsening symptoms. Zita Rutledge MD documented in this encounter Nursing Notes 10/29/2005 9:30 AM CDT >> LORETTA CISNEROS 10/29/2005 9:32 am Coretta Monaco presents for above. Initial BP 100/58 Pulse 80 Temp (Src) 98.3 (Oral) Resp 16 Ht 5' 3.75 (1.62m) Wt 159 lbs (72.1kg) LMP 10/25/2005 Body mass index is 27.52 kg/(m^2).. BP completed using cuff size: regular. Loretta Cisneros LPN documented in this encounter Plan of Treatment Not on filedocumented as of this encounter Visit Diagnoses Diagnosis Other specified counseling - Primary documented in this encounter Care Teams Dress Cap Maker Relationship Specialty Start Date End Date Mohit Najera PA-C PCP - General 09/25/02 04/08/14 [address] [place] [address] documented as of this encounter
--- OUTSIDE RECORDS SUMMARY | 2022-03-02 16:09 | XMS_ITS | Encounter Summary ---
:1970 Author Organization [facility] Address [address] [place] [address] Care Team Providers Name Role Phone Unavailable Primary Care Provider Unavailable Reason for Referral Outpatient (Routine) - Closed Specialty Diagnoses / Procedures Referred By Contact Refer red To Contact Neurology Candi Ornelas M.D ., M.P.H. [facility] [address] [place] [address] Referral ID Status Reason Start Date Expiration Date Visits Requ ested Visits Authorized [id number] Closed 12/27/2018 12/27/2019 1 1 Reason for Visit Reason Comments Seizures Headache Appointment Request (Routine) - Closed Specialty Diagnoses / Procedures Referred By Contact Refer red To Contact Neurology Nicolasa Hadley M.D. [address] [place] [address] Referral ID Status Reason Start Date Expiration Date Visits Requ ested Visits Authorized [id number] Closed 09/26/2018 09/26/2019 1 1 Encounter Details Date Type Department Care Team Description 12/27/2018 Office Visit Department of Candi Ornelas, Restless L eg Syndrome (Primary Dx); Neurology in [place], M.P.H. 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 How often do you attend temple or Patient refused 2021 holiness services? Do you belong to any clubs or No 06/09/2021 organizations such as temple groups, unions, fraternal or athletic groups, or [...] have completed or the highest Phil, MEd, POWER BUILDER DEVELOPER, [employer]) degree you have received? 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 - 12/27/2018 3:15 PM CDT SUBJECTIVE CHIEF COMPLAINT / REASON FOR VISIT Coretta Monaco is a 48 y.o. female who presents for evaluation of Seizures and Headache. HISTORY OF PRESENT ILLNESS With 48-year-old patient is well known to me from previous visits in [place]. 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 Her EEGs were abnormal and showed bilateral temporal activation according to records from the [facility]. Dr. Real had originallymanaged her unsuccessfully of lamotrigine but with topiramate she has been seizure-free for many years. She also has history of migraines without aura and the topiramate has helped cut that back to. 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 She has had chronic tinnitus. Today's visit she complains of having an unpleasant sensation in her feet causing her to need to move her legs most acutely when she is laying down at night but also sometimes when she has to sit stillfor a long period time. Movement relieves this sensation. She is taking topiramate 100 mg p.o. b.i.d. and Imitrex 100 mg once and repeat in 2 hours for migraines. 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 Her Neurological Disorders Depression Inventory for Epilepsy score today is 13 No past medical history on file. No past surgical history on file. MEDICATIONS: Current Outpatient Medications: ??? B complex-vitamins (BALANCE B-50) tablet, Take 1 tablet by mouth daily., Disp: , Rfl: ??? cholecalciferol, vitamin D3, (cholecalciferol) 1,000 Unit tablet, Take 1,000 Units by mouth daily., Disp: , Rfl: ??? phentermine (ADIPEX-P) 37.5 mg tablet, Take [...] day., Disp: 180 tablet, Rfl: 3 ??? gabapentin (NEURONTIN) 100 mg capsule, Take 1 capsule (100 mg total) by mouth 3 (three) times a day., Disp: 90 capsule, Rfl: 11 ??? SUMAtriptan (IMITREX) 100 mg tablet, Take 1 tablet (100 mg total) by mouth once as needed for migraine (headache) for up to 1 dose. May repeat one time after 2 hours if needed., Disp: 9 tablet, Rfl: 5 ALLERGY: Allergies Allergen Reactions ??? Cortisone Other (see comments) ??? Nickel Rash No family history on file. Social History Socioeconomic History ??? Marital status: Spouse name: Not on file ??? Number of children: Not on file ??? Years of education: Not on file ??? Highest education level: Master's degree (e.g., MA, MS, Phil, MEd, POWER BUILDER DEVELOPER, [employer]) Occupational History ??? Not on file [...] More than three times a week Attends holiness service: 1 to 4 times per year [...] Narrative ??? Not on file OBJECTIVE Vitals: 12/27/18 1530 BP: 112/83 BP Location: Right arm Patient Position: Sitting Cuff Size: Large Pulse: 78 Weight: 84 kg PHYSICAL EXAM COGNITION: Alert and oriented x 4. CRANIAL NERVES: bun icer II-XII intact and symmetric. MOTOR: Full strength [...] Without Status Epilepticus (HCC) ??? Migraine Headache Going to check her ferritin level today but I have given her prescription for gabapentin 100 mg p.o.t.i.d. toward she can start with 100 mg at night and if that isn't helpful then we could go to 200 or 300 mg at night. That is if her ferritin level comes back above 75 fits not then I am going to replace iron. Miguel making changes to her topiramate which seems to have controlled her seizures for so many years and help with her headaches. The patient is in agreement with this plan. We talked about side effects with topiramate again including a increased risk of kidney stones and glaucoma. She verbalized und erstanding of this she plans to have an eye exam here in the near future. A total time with the patient today was 45 minutes and more than half was counseling. I gave her an AVS with the medications and I gave her handout about restless leg syndrome. Cadni Ornelas M.D., M.P.H. documented in this encounter Plan of Treatment Scheduled Referrals Name Type Priority Associated Diagnoses Order S [facility] Neurology office Outpatient Referral Routine Expe cted: visit (clinic) 03/29/2019 (Approximate), Expires: 12/27/2021 documented as of this encounter Results (ABNORMAL) Ferritin (12/27/2018 4:22 PM CDT) P athologist Signature Ferritin, S 194 (H) 13 - 150 12/27/2018 mcg/L 6:38 PM CDT Comment: Biotin has been identified by the gigi gregory as a potential interfering substance. ??Higher concentr ations of biotin may be found in multivitamins, hair/nail supple ments, and workout supplements. ??If the result does not ma tch clinical observations, repeat testing after patient refrains fr om the use of supplements for at least 12 hours. Specimen Anatomical Collection Method Collection Time Receive d Time (Source) Location / / Volume Laterality Blood (Blood, 12/27/2018 4:22 PM 12/28/19 19 6:04 Venous) CDT PM CDT Candi Ornelas M.D., M.P.H. 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
--- OUTSIDE RECORDS SUMMARY | 2022-03-02 16:09 | XMS_ITS | Encounter Summary ---
:1970 Author Organization [facility] Address [address] [place] [address] Care Team Providers Name Role Phone Mohit Najera PA-C Primary Care Provider [phone] Reason for Visit Reason Comments Physical with pap,patient not fasting Encounter Details Date Type Department Care Team Description 12/29/2004 Office Visit [facility] Mohit Najera ROUTINE PIN INSERTER EXAMINATION (Primary Dx); Clinic [facility] ADIN Ignacio ROUTINE MEDICAL EXAM [id number] [place] [phone] Social History Tobacco Use Types Packs/Day Years Used Date Smoking Tobacco: Never Alcohol Use Standard Drinks/Week Comments Yes 0 (1 standard drink = 0.6 oz pure alcoho l) occasionally Sex Assigned at Date Recorded Not on file documented as of this encounter Last Filed Vital Signs Vital Sign Reading Time Taken Comments Blood Pressure 108/66 12/29/2004 10:00 AM CDT Pulse 66 12/29/2004 10:00 AM CDT Temperature 36.8 ??C (98.3 ??F) 12/29/2004 10:00 AM CDT Respiratory Rate - - Oxygen Saturation - - Inhaled Oxygen Concentration - - Weight 74.4 kg (164 lb) 12/29/2004 10:00 AM CDT Height 166.4 cm (5' 5.5) 12/29/2004 10:00 AM CDT Body Mass Index 26.88 12/29/2004 10:00 AM CDT documented in this encounter Progress Notes Rahat Najera, Mohit Ignacio - 12/29/2004 10:44 AM CDT SUBJECTIVE: CC: Steph Frank is a 34 year old female who presents for a comprehensive physical exam. SOCIAL: . One daughter age 3 and 1 son age 7). 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 HABITS: SMOKE: Never ETOH: 4 per year EXERCISE: 20min daily. 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 CV: Denies any chest pain/pressure, murmurs, palpitations, FISCHER, PND, edema or other cardiac problems. GI: Hx of rectal pocket following delivery of 2 children. Stooling requires vaginal splinting. No acute changes x 3 years. Following with GI and will need surgical correction. Denies any black tarry or bloody stools. Denies any GI upset or heartburn. No FMHX of colon CA or colon polyps. PIN INSERTER: . . Condoms for contraception. Cycles regular. Last pap normal per patient. Denies any hx of abnormal paps. Denies any FMHX of endometrial or ovarian CA. No other PIN INSERTER hx. No abnormaldischarge. No vaginal pain. Declined offer for STD check. URINARY: No dysuria, hematuria, or bladder irritability sxs. No hx of resistant UTI's, incontinence,kidney infection or kidney stones. MUSCULOSKELETAL: Denies any problems with muscle pain, weakness, instability, or joint stiffness. INTEGUMENTARY/SKIN: Denies any suspicious, itchy or changing moles. BREAST: Does regular SBE. Denies any lumps or changes. Denies any family hx of breast CA. NEURO: Sx d/o dating back to age 1. 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 Pt follows with Dr. Richardson at [facility] Clinic of neurology. ENDOCRINE: Denies any symptoms of thyroid disorders or diabetes. HEME/ALLERGY/IMMUNE: Denies any hx of bleeding or clotting disorders in self or family members. PSYCHIATRIC: Denies any sxs of mood disorders. EXAM: BP 108/66 Pulse 66 Temp (Src) 98.3 (Oral) Ht 5' 5.5 (1.66m) Wt 164 lbs (74.4kg) LMP 12/20/2004 GENERAL APPEARANCE:healthy, alert and no distress ORGAN [...] PSYCH: Mood good and otherwise unremarkable. ASSESSMENT/PLAN: V72.31 ROUTINE PIN INSERTER EXAMINATION (primary encounter diagnosis) Plan: A THIN LAYER PAP SCREEN V70.0 ROUTINE MEDICAL EXAM Plan: A THIN LAYER PAP SCREEN, A.M.A. LIPID PANEL, CBC WITH PLATELETS, GLUCOSE, UA MICRO IF POSITIVE documented in this encounter Nursing Notes 12/29/2004 10:00 AM CDT >> BERNADINE SPAIN 12/29/2004 10:10 am Steph Frank presents for physical with pap,patient not fasting. last pap:2003 last mammo:none last dt:11/2002 last colonoscopy:11/2004 SBE:yes Initial BP 108/66 Pulse 66 Temp (Src) 98.3 (Oral) Ht 5' 5.5 (1.66m) Wt 164 lbs (74.4kg) LMP 12/20/2004 Body Mass Index is 26.87 kg/(m^2).. BP completed using cuff size: regular. BERNADINE SPAIN CMA documented in this encounter Plan of Treatment Not on filedocumented as of this encounter Procedures Procedure Name Priority Date/Time Associated Diagnosis Comme nts HCL UA MICRO IF Routine 12/29/2004 10:54 AM Routine Medical Ex am Results for this POSITIVE CDT procedure are i n the results section. CL AFF CBC WITH Routine 12/29/2004 10:53 AM Routine Medical Ex am Results for this PLATELETS CDT procedure are i n the results section. HCL GLUCOSE Routine 12/29/2004 10:53 AM Routine Medical Exam Results for this CDT procedure are i n the results section. CL AFF A.M.A. LIPID Routine 12/29/2004 10:53 AM Routine Medica l Exam Results for this PANEL CDT procedure are i n the results section. HCL PAP THIN LAYER Routine 12/29/2004 12:00 AM Routine Service Or Work Dispatcher Re sults for this SCREEN CDT Examination procedure are in Routine Medical Exam the res ults section. documented in this encounter Results UA MICRO IF POSITIVE (12/29/2004 10:54 AM CDT) Patholo gist Method Time Signature Color Urine Yellow [facility] Appearance Urine Clear [facility] Glucose Urine Negative NEG mg/dL [facility] Bilirubin Urine Negative NEG [facility] Ketones Urine Negative NEG mg/dL [facility] Specific [place] 1.020 1.001 - [place] Urine 1.035 [facility] Blood Urine Negative NEG [facility] pH Urine 6.0 5.0 - 7.0 [place] pH [facility] Protein Albumin Negative NEG mg/dL [place] Urine [facility] Urobilinogen 0.2 0.2 - 1.0 [place] Urine EU/dL [facility] Nitrite Urine Negative NEG [facility] Leukocyte Negative NEG [place] Esterase Urine [facility] Source Midstream [place] Urine [facility] Specimen Anatomical Collection Method Collection Time Receive d Time (Source) Location / / Volume Laterality 12/29/2004 10:54 12/29/2004 AM CDT 10:59 AM CDT Mohit Najera PA-C LABORATORY Performing Organization Address City/[facility]/ZIP Code Phon e Number [facility] [address] [place] [address] [facility] GLUCOSE (12/29/2004 10:53 AM CDT) P athologist Signature Glucose 84 60 - 110 [place] mg/dL CLINIC LAB Specimen Anatomical Collection Method Collection Time Receive d Time (Source) Location / / Volume Laterality 12/29/2004 10:53 12/29/2004 AM CDT 10:58 AM CDT Mohit Najera PA-C LABORATORY Performing Organization Address [facility]/ZIP Code Phon e Number [facility] [address] [place] [address] [facility] CBC WITH PLATELETS (12/29/2004 10:53 AM CDT) athologist Signature WBC 4.4 4.0 - 11.0 [facility] 10[facility]9/L [facility] RBC Count 4.58 3.8 - 5.2 [facility] 10e12/L [facility] Hemoglobin 15.1 11.7 - [facility] 15.7 g/dL [facility] Hematocrit 43.6 35.0 - [facility] 47.0 % [facility] MCV 95 78 - 100 [facility] fl [facility] MCH 33.0 26.5 - [place] 33.0 pg [facility] MCHC 34.6 32.0 - [facility] 36.0 g/dL [facility] RDW 13.0 10.0 - [facility] 15.0 % [facility] Platelet Count 218 150 - 450 [facility] 10e9/L [facility] Specimen Anatomical Collection Method Collection Time Receive d Time (Source) Location / / Volume Laterality 12/29/2004 10:53 12/29/2004 AM CDT 10:58 AM CDT Mohit Najera PA-C LABORATORY Performing Organization Address City/State/ZIP Code Phon e Number [address] [phone] [facility] (ABNORMAL) A.M.A. LIPID PANEL (12/29/2004 10:53 AM CDT) athologist Signature Cholesterol 155 0 - 200 [facility] mg/dL [facility] Comment: Cholesterol Reference Range: <200 ??The NCEP recommends further ? evaluation of: ? 1. ??Patients with cholesterol ? greater than 200 mg/dL ? if additional risk facto rs ? are present. ? 2. ??All patients with a ? cholesterol greater than ? 240 mg/dL. Triglycerides 69 0 - 150 mg/dL [facility] HDL Cholesterol 39 (L) >40 mg/dL [facility] LDL Cholesterol Calculated 102 0 - 129 mg/dL [facility] VLDL-Cholesterol 14 0 - 30 mg/dL [facility] Cholesterol/HDL Ratio 3.9 0.0 - 5.0 [facility] Specimen Anatomical Collection Method Collection Time Receive d Time (Source) Location / / Volume Laterality 12/29/2004 10:53 12/29/2004 AM CDT 10:58 AM CDT Mohit Najera PA-C LABORATORY Performing Organization Address City/State/ZIP Code Phon e Number [facility] [address] [place] [address] [facility] A THIN LAYER PAP SCREEN (12/29/2004 12:00 AM CDT) Component Value Ref Test Analysis Performed At [facility] Range Method Time Signature PAP NIL COPATH Copath Report COPATH Patient Name: STEPH FRANK MR#: [id number] Specimen #: [id number] Collected: 12/29/2004 Received: 12/30/2004 Reported: 01/05/2005 10:39 Ordering Phy(s): MOHIT NAJERA SPECIMEN/STAIN PROCESS: Pap thin layer prep screening ([facility]) ? Pap-Cyto x 1, Reflex HPV x 1 SOURCE: Cervical, endocervical ---- Pap thin layer prep screening ([facility]) SPECIMEN ADEQUACY: Satisfactory for evaluation. -Transitional zone component present. CYTOLOGIC INTERPRETATION: Negative for Intraepithelial Lesion or Malignancy Electronically signed out by: OLIVIA Aviles (ASCP) Processed and screened at [facility] CLINICAL HISTORY: LMP: 12-20-04 Previous normal pap Date of Last Pap: 2003, TESTING LAB LOCATION: [facility] [address], [place] ??[address] COLLECTION SITE: Client: ??[facility] Location: [facility] (R) Specimen (Source) Anatomical Collection Method Collection Time Re ceived Time Location / / Volume Laterality 12/29/2004 12/30/2004 8:43 AM CDT Mohit Najera PA-C LABORATORY Performing Organization Address City/State/ZIP Code Phon e Number [place] documented in this encounter Visit Diagnoses Diagnosis Routine gynecological examination - Prim megan Routine general medical examination at a health care facility documented in this encounter Care Teams Prototype Machine Operator Relationship Specialty Start Date End Date Mohit Najera PA-C PCP - General 09/25/02 04/08/14 [address] [place] [address] documented as of this encounter
--- OUTSIDE RECORDS SUMMARY | 2022-03-02 16:09 | XMS_ITS | Encounter Summary ---
:1970 Author Organization [place] Address [address] [place] [address] Care Team Providers Name Role Phone Nicolasa Olivares MD Primary Care Provider [phone] Reason for Visit Reason Onset Date Comments Schedule Surgery 04/18/2019 TOTAL THYROIDECTOMY Encounter Details Date Type Department Care Team Description 04/18/2019 Telephone [facility] Filomena Starkey Sche dule Surgery (TOTAL Surgery Clinic MD THYROIDECTOMY ) [place] [address] [facility] [address] [place] [address] [phone] Social History Tobacco Use Types Packs/Day Years Used Date Smoking Tobacco: Never Smokeless Tobacco: Never Alcohol Use Standard Drinks/Week Comments Yes 0 (1 standard drink = 0.6 oz pure alcoho l) occasionally Sex Assigned at Date Recorded Not on file documented as of this encounter Miscellaneous Notes Telephone Encounter - Sandi Mcnally - 04/18/2019 4:45 PM CST Type of surgery: TOTAL THYROIDECTOMY Location of surgery: [facility] Date and time of surgery: 06-05-19 Surgeon: DR. STARKEY Pre-Op Appt Date: PATIENT TO SCHEDULE Post-Op Appt Date: PATIENT TO SCHEDULE Packet sent out: GIVEN TO PATIENT Pre-cert/Authorization completed: Not Applicable Date: 04-18-19 *outpatient overnight* TOTAL THYROIDECTOMY GENERAL PT INST TO HAVE H&P WITH DR. OLIVARES 2.5 HRSREQ PA ASSIST NLG ALW SPORTATION DESIGN ENGINEER documented in this encounter Plan of Treatment Not on filedocumented as of this encounter Visit Diagnoses Not on filedocumented in this encounter Care Teams Emt P Relationship Specialty Start Date End Date Nicolasa Olivares MD PCP - General Family Practice 04/18/[address] [address] documented as of this encounter
--- OUTSIDE RECORDS SUMMARY | 2022-03-02 16:09 | XMS_ITS | Encounter Summary ---
:1970 Author Organization [place] Address [address] [place] [address] Care Team Providers Name Role Phone Mohit Najera PA-C Primary Care Provider [phone] Reason for Visit Reason Comments Imm/Inj Twinrix #2 Encounter Details Date Type Department Care Team Description 11/26/2005 Allied Health/Nurse [facility] Imm /Inj (Twinrix #2) Visit Clinic [place] [address] Social History Tobacco Use Types Packs/Day Years Used Date Smoking Tobacco: Never Alcohol Use Standard Drinks/Week Comments Yes 0 (1 standard drink = 0.6 oz pure alcoho l) occasionally Sex Assigned at Date Recorded Not on file documented as of this encounter Plan of Treatment Not on filedocumented as of this encounter Visit Diagnoses Diagnosis Need for prophylactic vaccination and in oculation against viral hepatitis - Primary documented in this encounter Care Teams Sisal Picker Relationship Specialty Start Date End Date Mohit Najera PA-C PCP - General 09/25/02 04/08/14 [address] [place], [place] [id number] documented as of this encounter
--- OUTSIDE RECORDS SUMMARY | 2022-03-02 16:09 | XMS_ITS | Encounter Summary ---
:1970 Author Organization [place] Address [address] [place] [address]. [place] [address] Care Team Providers Name Role Phone Nicolasa Hadley MD Primary Care Provider [phone] Encounter Details Date Type Department Care Team Description 06/05/2019 Travel Social History Tobacco Use Types Packs/Day [...] on filedocumented in this encounter Care Teams Emergency Planning And Response Manager Relationship Specialty Start Date End Date Nicolasa Hadley MD PCP - General Family Practice 04/18/[address] [address] documented as of this encounter
--- OUTSIDE RECORDS SUMMARY | 2022-03-02 16:09 | XMS_ITS | Encounter Summary ---
:1970 Author Organization [facility] Address [address] [place] [address] Care Team Providers Name Role Phone Unavailable Primary Care Provider Unavailable Encounter Details Date Type Department Care Team Description 12/27/2018 Hospital Encounter Department of Candi Ornelas Restless Leg Syndrome Laboratory [facility] [address] [place], [place] [id number] Social History Tobacco Use Types Packs/Day [...] or relatives? How often do you attend caodaism or Patient refused 2021 religion services? Do you belong to any clubs or No 06/09/2021 organizations such as caodaism groups, unions, fraternal or athletic groups, or [...] place to sleep or slept in a prison (including now)? Education Answer Date Recorded What is the highest level of school Master's degree (e.g., M A, MS, 12/27/2018 you have completed or the highest Phil, MEd, TRAVEL PHYSICAL THERAPIST, FALGUNI) degree you have received? 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 cholecalciferol, vitamin Take 1,000 Units by 0 D3, 25 mcg (1,000 Unit) mouth daily. tablet SUMAtriptan (IMITREX) TAKE 1/2 TO 1 TAB AT 5 10/07 100 mg tablet START OF HEADACHE MAY REPEAT ONCE IN 2 HOURS USE NO MORE THAN TWO DAYS A WEEK gabapentin (NEURONTIN) Take 1 capsule (100 90 capsule 11 12/0803/29/2019 100 mg capsule mg total) by mouth 3 (three) times a day. phentermine (ADIPEX-P) Take 37.5 mg by 0 11/09/19 19 04/23/2020 37.5 mg tablet mouth daily. Patient is taking 1/2 tablet daily. topiramate (TOPAMAX) 100 Take 1 tablet (100 180 tablet 3 03/29/2019 mg tablet mg total) by mouth 2 (two) times a day. documented as of this encounter Plan of Treatment Not on filedocumented as of this encounter Procedures Procedure Name Priority Date/Time Associated Diagnosis Comme nts FERRITIN, S Routine 12/27/2018 4:22 PM Restless Leg Syndrome Results for this CDT procedure are i n the results section . documented in this encounter Results (ABNORMAL) Ferritin (12/27/2018 4:22 PM CDT) athologist Signature Ferritin, S 194 (H) 13 [...] Organization Address City/State/ZIP Code Phon e Number [facility] [address] [place] [address] LAB documented in this encounter Visit Diagnoses Diagnosis Restless Leg Syndrome documented in this encounter
--- OUTSIDE RECORDS SUMMARY | 2022-03-02 16:09 | XMS_ITS | Encounter Summary ---
:1970 Author Organization [place] Address [facility] [place] [address] Care Team Providers Name Role Phone Nicolasa Hadley MD Primary Care Provider [phone] Reason for Visit Auth/Cert Specialty Diagnoses / Procedures Referred By Contact Refer red To Contact Surgery Diagnoses Non-toxic multinodular goiter Non-toxic multinodular goiter [E04.2] Rh Periop Servic es Procedures THYROIDECTOMY, TOTAL [address] [place] [address] Phone: Fax: Referral ID Status Reason Start Date Expiration Date Visits Requ ested Visits Authorized [id number] 1 1 Encounter Details Date Type Department Care Team Description 06/05/2019 Anesthesia Event [facility] Aron Tucker MD [facility] ANESTHESIA [address] [facility] [address] [place] [address] PeriOp Services Remigio Cha APRN [facility] ANESTHESIA [address] [place] [address] [address] [place] [address] Anesthesia Record Procedure Summary Procedure Name Responsible Anesthesia Start Anesthesia Stop Anesthesiologist Time Time TOTAL THYROIDECTOMY Aron Thomas, 06/05/19 0805/10 1103 (Neck) Events Date Time Event Comment 06/05/2019 0814 0827 An Start 0827 An Start Data 0827 MD Present 0832 An Induction 0832 MD Present 0834 An Intubation 0834 MD Present 0842 MD Present 0855 AN INCISION 0917 MD Present 0933 MD Present 1033 MD Present 1052 an stop data 1052 Present 1103 An Stop Electronically s igned by Remigio Cha APRN CRNA on June 05, 2019 11:03 AM Name Total midazolam 1mg/mL 2 mg fentaNYL (SUBLIMAZE) injection 200 mcg propofol (DIPRIVAN) injection 10 mg/mL vial 120 mg propofol infusion (mcg/kg/min) 460.2 mg lidocaine 1% 50 mg glycopyrrolate 0.2 mg/mL 0.7 mg rocuronium 10mg/mL 30 mg ondansetron 2 mg/mL 4 mg HYDROmorphone 1 mg/ml 0.5 mg phenylephrine (MARIAM-SYNEPHRINE) injection 100 mcg ceFAZolin (ANCEF) intermittent infusion 2 g in 100 mL dextrose PRE-MIX 3 g lidocaine 4% 3 mL lactated ringers infusion 2,000 mL Agents Name NO HELIOX O2 N2O Air Exp Sevoflurane Exp Isoflurane Exp Desflurane Exp N2O Ins Sevoflurane Ins Isoflurane Ins Desflurane O2 Auxiliary Blood No blood administrations on file. Lines, Drains, and Airways Type Details Placement Removal Incision/Surgical Site 06/05/19; 0902; Neck 06/05/19 0902 by Sofya Haji RN Closed/Suction Drain 06/05/19; 0959; 1; 06/05/19 0959 by Anterior; Neck; Bulb; Sofya Haji RN 10 Upper [place] Peripheral IV 06/05/19; 0810; 20 G; 06/05/19 0810 by 06/06/19 0955 by Left; Hand; Aron Thomas Enisa Chlorhexidine; None; MD Urbano Tolerated well RETIRED ETT 06/05/19; 0834; Mask 06/05/19 0834 by 06/05/19 1 048 by Ventilation: Easy with Remigio Cha David oral airway; Ease of GERALDINE Brooks CRNA, A PRN CRNA Intubation: Easy; Airway Size: 7; Cuffed; Oral; Blade Type: Massimo; Blade Size: 3; Place by: dk; Insertion Attempts: 1; Secured at (cm)to lip: 23 cm; Breath Sounds: Equal, clear and bilateral; End Tidal CO2: Present; Dentition: Intact, Unchanged; Grade View of Cords: 1 Urethral Catheter 06/05/19; 0837; No; 06/05/19 0837 by 06/05/19 1244 by Sofya Almonte RN Schwager, Bet te, RN Sedation/Paralysis; 16 fr documented in this encounter Social History Tobacco Use Types Packs/Day Years Used Date Smoking Tobacco: Never Smokeless Tobacco: Never Alcohol Use Standard Drinks/Week Comments Yes 0 (1 standard drink = 0.6 oz pure alcoho l) occasionally Sex Assigned at Date Recorded Not on file documented as of this encounter OR Notes Anesthesia Postprocedure Evaluation - Aron Thomas MD - 06/05/2019 11:04 AM CST Patient: Coretta Monaco Procedure(s): TOTAL THYROIDECTOMY Diagnosis:Non-toxic multinodular goiter [E04.2] Diagnosis Additional Information: No value filed. Anesthesia Type: General, ETT Note: Anesthesia Post Evaluation Patient location during evaluation: PACU Patient participation: Able to fully participate in evaluation Level of consciousness: awake and alert Pain management: adequate Airway patency: patent Cardiovascular status: acceptable Respiratory status: acceptable Hydration status: acceptable PONV: controlled Last vitals: Vitals: 06/05/19 0705 06/05/19 1055 06/05/19 1100 BP: 130/87 (!) 158/102 (!) 165/104 Pulse: 79 87 Resp: 19 16 15 Temp: 97.1 ??F (36.2 ??C) SpO2: 99% 100% 100% Electronically Signed By: Aron Thomas MD June 05, 2019 11:04 AM OR QUALITY ANALYST Anesthesia Preprocedure Evaluation - Aron Thomas MD - 06/05/2019 7:33 AM CST Anesthesia Pre-Procedure Evaluation Patient: Coretta Monaco : 1970 Preoperative Diagnosis: Non-toxic multinodular goiter [E04.2] Procedure(s): TOTAL THYROIDECTOMY Past Medical History: Diagnosis Date ??? Abnormal maternal glucose tolerance, antepartum glucose abnormality after delivery x 2 weeks ??? MEDICAL HISTORY OF - rectal pocket ??? 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 C NONSPECIFIC PROCEDURE 1998 NVD ??? 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 Pt has had prior anesthetic. No history of anesthetic complications ROS/MED HX ENT/Pulmonary: - neg pulmonary ROS Neurologic: (+)seizures features: partial, Cardiovascular: - neg cardiovascular ROS (-) CAD, syncope and irregular heartbeat/palpitations METS/Exercise Tolerance: Hematologic: - neg hematologic ROS Musculoskeletal: - neg musculoskeletal ROS GI/Hepatic: - neg GI/hepatic ROS (-) GERD Renal/Genitourinary: - ROS Renal section negative Endo: (+) thyroid problem Thyroid disease - Other thyroid nodules, . Psychiatric: - neg psychiatric ROS Infectious Disease: - neg infectious disease ROS Malignancy: Other: Physical Exam Normal systems: cardiovascular, pulmonary and dental Airway Mallampati: II TM distance: >3 FB Neck ROM: full Dental Cardiovascular Pulmonary Lab Results Component Value Date WBC 3.6 (L) 08/17/2005 HGB 14.2 08/17/2005 HCT 39.5 08/17/2005 PLT 197 08/17/2005 POTASSIUM 3.9 09/19/2018 CR 1.1 09/19/2018 GLC 86 09/19/2018 ALT 37 09/19/2018 AST 23 09/19/2018 TSH 0.907 09/19/2018 Preop Vitals BP Readings from Last 3 Encounters: 06/05/19 130/87 04/18/19 120/86 02/21/19 109/72 Pulse Readings from Last 3 Encounters: 04/18/19 79 02/21/19 91 10/29/05 80 Resp Readings from Last 3 Encounters: 06/05/19 19 04/18/19 16 02/21/19 14 SpO2 Readings from Last 3 Encounters: 06/05/19 99% 04/18/19 98% Temp Readings from Last 1 Encounters: 06/05/19 97.1 ??F (36.2 ??C) (Temporal) Ht Readings from Last 1 Encounters: 06/05/19 1.626 m (5' 4) Wt Readings from Last 1 Encounters: 06/05/19 76.7 kg (169 lb) Estimated body mass index is 29.01 kg/m?? as calculated from the following: Height as of this encounter: 1.626 m (5' 4). Weight as of this encounter: 76.7 kg (169 lb). Anesthesia Plan History & Physical Review History and physical reviewed and following examination; no interval change. ASA Status: 2 . NPO Status: > 8 hours Plan for General and ETT with Intravenous induction. Maintenance will be Inhalation. PONV prophylaxis: Ondansetron (or other 5HT-3) and Dexamethasone or Solumedrol Postoperative Care Postoperative pain management: IV analgesics, Oral pain medications and Multi- modal analgesia. Consents Anesthetic plan, risks, benefits and alternatives discussed with: Patient.. Aron Thomas MD . OR QUALITY ANALYST documented in this encounter Miscellaneous Notes Anesthesia Care Transfer Note - Remigio Cha APRN CRNA - 06/05/2019 11:02 AM CST Patient: Coretta Monaco Procedure(s): TOTAL THYROIDECTOMY Diagnosis: Non-toxic multinodular goiter [E04.2] Diagnosis Additional Information: No value filed. Anesthesia Type: General, ETT Note: Airway :Face Mask Patient transferred to:PACU Comments: Pt to PACU, VSS report to RNHandoff Report: Identifed the Patient, Identified the Reponsible Provider, Reviewed the pertinent medical history, Discussed the surgical course, Reviewed Intra-OPanesthesia mangement and issues during anesthesia, Set expectations for post-procedure period and Allowed opportunity for questions and acknowledgement of understanding Vitals: (Last set prior to Anesthesia Care Transfer) ELIZABETH VITALS 06/05/2019 1022 - 06/05/2019 1102 06/05/2019 Resp Rate (observed): (!) 1 Electronically Signed By: Remigio Cha APRN CRNA June 05, 2019 11:02 AM OR QUALITY ANALYST documented in this encounter Plan of Treatment Not on filedocumented as of this encounter Visit Diagnoses Not on filedocumented in this encounter Administered Medications Inactive Administered Medications - up to 3 most recent administrations Medication Order MAR Action Action Date Dose Rate Site ceFAZolin (ANCEF) intermittent Given 06/05/2019 10:26 AM SENIOR QUALITY ANALYST 1 g infusion 2 g in 100 mL dextrose PRE-MIX Routine, 2 g, Intravenous, PRE-OP/PRE-PROCEDURE, Starting on Tue06/05/19 at 0722, For 1 dose, Give first dose within 1 hour PRIOR to incision. If patient weight is greater than or equal to 120 kg increase dose to 3 g., Indications: Perioperative Pharmacoprophylaxis, Pre-procedure Given 06/05/2019 8:26 AM SENIOR QUALITY ANALYST 2 g fentaNYL (PF) (SUBLIMAZE) injection Given 06/05/2019 8:33 AM SENIOR QUALITY ANALYST 50 mcg PRN, Administer over 3-5 Minutes, Starting on Tue06/05/19 at 0832, Anesthesia Intra-op Given 06/05/2019 8:32 AM SENIOR QUALITY ANALYST 150 mcg glycopyrrolate (ROBINUL) injection Given 06/05/2019 8:57 AM SENIOR QUALITY ANALYST 0.3 mg Intravenous, PRN, Administer over 1-2 Minutes, Starting on Tue06/05/19 at 0849, Anesthesia Intra-op Given 06/05/2019 8:53 AM SENIOR QUALITY ANALYST 0.4 mg HYDROmorphone (DILAUDID) injection Given 06/05/2019 9:07 AM SENIOR QUALITY ANALYST 0.5 mg Intravenous, PRN, Starting on Tue06/05/19 at 0907, Anesthesia Intra-op lactated ringers infusion New Bag 06/05/2019 9:07 AM SENIOR QUALITY ANALYST at 25 mL/hr, Intravenous, CONTINUOUS, IF patient NOT on dialysis., Pre-procedure, Starting on Tue06/05/19 at 0730, Until Tue06/05/19 at 1055 New Bag 06/05/2019 7:41 AM SENIOR QUALITY ANALYST lidocaine 1 % injection Given 06/05/2019 8:32 AM SENIOR QUALITY ANALYST 50 mg Intravenous, PRN, Starting on Tue06/05/19 at 0832, Anesthesia Intra-op lidocaine 4 % injection Given 06/05/2019 10:46 AM SENIOR QUALITY ANALYST 3 mLs PRN, Starting on Tue06/05/19 at 1046, Anesthesia Intra-op midazolam (VERSED) injection Given 06/05/2019 8:29 AM SENIOR QUALITY ANALYST 2 mg Administer over 2 Minutes, PRN, Starting on Tue06/05/19 at 0829, Anesthesia Intra-op ondansetron (ZOFRAN) injection Given 06/05/2019 8:49 AM SENIOR QUALITY ANALYST 4 mg Intravenous, PRN, Administer over 2-5 Minutes, Starting on Tue06/05/19 at 0849, Anesthesia Intra-op phenylephrine (MARIAM-SYNEPHRINE) injection New Bag 06/05/2019 8:53 AM SENIOR QUALITY ANALYST 100 mcg Intravenous, CONTINUOUS PRN, Starting on Tue06/05/19 at 0853, Anesthesia Intra-op propofol (DIPRIVAN) infusion New Bag 06/05/2019 8:35 AM 50 mcg/kg/min 23 mL/hr Intravenous, CONTINUOUS PRN, SENIOR QUALITY ANALYST Starting on Tue06/05/19 at 0835, Anesthesia Intra-op propofol (DIPRIVAN) injection 10 mg/mL v ial Given 06/05/2019 8:32 AM SENIOR QUALITY ANALYST 120 mg PRN, Starting on Tue06/05/19 at 0832, Anesthesia Intra-op rocuronium injection Given 06/05/2019 8:33 AM SENIOR QUALITY ANALYST 30 mg PRN, Starting on Tue06/05/19 at 0833, Anesthesia Intra-op documented in this encounter Care Teams Records Tech Relationship Specialty Start Date End Date Nicolasa Hadley MD PCP - General Family Practice 04/18/19 [place] [id number] documented as of this encounter
--- OUTSIDE RECORDS SUMMARY | 2022-03-02 16:09 | XMS_ITS | Encounter Summary ---
:1970 Author Organization [place] Address [address] [place] [address] Care Team Providers Name Role Phone Nicolasa Hadley MD Primary Care Provider [phone] Reason for Visit Reason Comments Surgical Followup PO total thyroidectomy Encounter Details Date Type Department Care Team Description 06/13/2019 Office Visit [facility] Filomena Frank, Surg ical followup Surgery Clinic MD visit (Primary Dx) [place] [address] [place] [address] [phone] Social History Tobacco Use Types Packs/Day Years Used Date Smoking Tobacco: Never Smokeless Tobacco: Never Tobacco Cessation: Counseling Given: Yes Alcohol Use Standard Drinks/Week Comments Yes 0 (1 standard drink = 0.6 oz pure alcoho l) occasionally Sex Assigned at Date Recorded Not on file documented as of this encounter Last Filed Vital Signs Vital Sign Reading Time Taken Comments Blood Pressure 114/78 06/13/2019 3:22 PM ENGINE MONITOR Pulse 83 06/13/2019 3:22 PM ENGINE MONITOR Temperature - - Respiratory Rate 16 06/13/2019 3:22 PM ENGINE MONITOR Oxygen Saturation 100% 06/13/2019 3:22 PM ENGINE MONITOR Inhaled Oxygen Concentration - - Weight 76.7 kg (169 lb) 06/13/2019 3:22 PM ENGINE MONITOR Height 162.6 cm (5' 4) 06/13/2019 3:22 PM ENGINE MONITOR Body Mass Index 29.01 06/13/2019 3:22 PM ENGINE MONITOR documented in this encounter Progress Notes Filomena Frank MD - 06/13/2019 3:15 PM CST Progress Note/Post-op Follow up: Coretta is here for follow up after total thyroidectomy 1+ weeks ago. She had side effect to calcium supplementation of constipation and low appetite. She actually had tostop taking the calcium and took about 4 days to resume regular diet and bowel activity. She reportsfair energy, improving. Denies numbness or tingling. Incisional discomfort is nearly resolved. Smoking History: has never smoked. Physical Exam: LMP 10/25/2005 General: Appears well, in no acute distress HEENT: Chvostek's sign is negative. Neck: Incision site healing nicely, Healing ridge is normal. Range of motion is normal. Neuro: Voice is Normal. 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 I recommend a follow up with Latasha Escobar NP in the next few weeks for assessment and check of TSH, possible levothyroxine adjustment if needed. I would be happy to see her if there are any ongoing issues, but currently, there are no signs of post-operative complications. Filomena Frank MD/Jackie Ridley PA-C Please route or send letter to: Primary Care Provider (PCP) and Referring Provider NE MONITOR documented in this encounter Plan of Treatment Not on filedocumented as of this encounter Visit Diagnoses Diagnosis Surgical followup visit - Primary Follow-up examination, following unspeci fied surgery documented in this encounter Care Teams Cook Manager Relationship Specialty Start Date End Date Nicolasa Hadley MD PCP - General Family Practice 04/18/[address] [address] documented as of this encounter
--- OUTSIDE RECORDS SUMMARY | 2022-03-02 16:09 | XMS_ITS | Clinical Summary ---
:1970 Author Organization [place] Address [address] [place] [id number] Care Team Providers Name Role Phone Nicolasa Hadley MD Primary Care Provider [phone] Allergies Active Allergy Reactions Severity Noted Date Comments Betamethasone Cramps 06/04/2019 Severe Stomach cramps Corticosteroids Rash Low 02/21/2019 Turned brigh t red all over body Green Tea [facility] Ext Rash Low 02/21/2019 Burning r [place] Naproxen Rash Low 02/21/2019 rash Nickel Rash Low 02/21/2019 Burning rash Medications Medication Sig Dispensed Refills Start Date End Date Status TOPAMAX 100 MG OR 1 TABLET TWICE 600 0 11/22/2005 Active TABSIndications: DAILY Other convulsions VITAMIN D PO Take 1 tablet by 0 Active mouth daily Cyanocobalamin Take 1 tablet by 0 Active (VITAMIN B-12 PO) mouth daily Fexofenadine HCl Take 180 mg by 0 Active (DANISHA ALLERGY PO) mouth daily as needed gabapentin 300 mg nightly as 01/19/2019 Active (NEURONTIN) 100 MG needed capsule SUMAtriptan (IMITREX) TAKE 1 TAB ONCE 5 9 Active 100 MG tablet NEEDED FOR MIGRAINE FOR UP TO 1 DOSE. MAY REPEAT 1 X AFTER 2 HOURS IF NEEDED. docusate sodium Take 100 mg by 0 Active (COLACE) 100 MG mouth nightly as capsule needed for constipation calcium carbonate 500 Take 2 tablets 120 tablet 0 06/06/2019 Active mg, elemental, (OSCAL (1,000 mg) by 500) 1250 (500 Ca) MG mouth every 8 TABS hours See tabletIndications: discharge summary S/P total for taper thyroidectomy schedule. levothyroxine Take 1 tablet (125 90 tablet 3 09/05/2019 Active (SYNTHROID/LEVOTHROID mcg) by mouth ) 125 MCG daily tabletIndications: S/P total thyroidectomy Active Problems Problem Noted Date S/P thyroid surgery 06/05/2019 Non-toxic multinodular goiter 04/18/2019 Overview: Added automatically from request for gamal escamilla [id number] Convulsions 12/25/2003 Overview: Dx'd age 32, from scar tissue from encep halitis as a child, frontal lobe Problem list name updated by automated p rocess. 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 Provider to review Immunizations Name Administration Dates Next Due TD (ADULT, 7+) 11/29/2002 Twinrix A/B 11/26/2005, 10/29/2005 Typhoid IM 10/29/2005 Family History Medical History Relation Comments Allergies Daughter Significant generali zed rxn to bug bites. Diabetes Father Borderline DM. Hypertension Father Alcohol/Drug Mother Arthritis Mother OA Depression Mother Heart Disease Mother Congenital valve abn ormality requiring surgery Neurologic Disorder Mother lupus Respiratory Paternal Grandfather lung ca Heart Disease Paternal Grandmother of mi Arthritis Sister RA Family History Negative Son Relation Status Comments Daughter Father Mother Paternal Grandfather Paternal Grandmother Sister Son Social History Tobacco Use Types Packs/Day Years Used Date Smoking Tobacco: Never Smokeless Tobacco: Never Tobacco Cessation: Counseling Given: Yes Alcohol Use Standard Drinks/Week Comments Yes 0 (1 standard drink = 0.6 oz pure alcoho l) occasionally Sex Assigned at Date Recorded Not on file Last Filed Vital Signs Vital Sign Reading Time Taken Comments Blood Pressure 114/78 06/13/2019 3:22 PM WORT EXTRACTOR Pulse 83 06/13/2019 3:22 PM WORT EXTRACTOR Temperature 36.7 ??C (98 ??F) 06/06/2019 7:39 AM WORT EXTRACTOR Respiratory Rate 16 06/13/2019 3:22 PM WORT EXTRACTOR Oxygen Saturation 100% 06/13/2019 3:22 PM WORT EXTRACTOR Inhaled Oxygen Concentration - - Weight 76.7 kg (169 lb) 06/13/2019 3:22 PM WORT EXTRACTOR Height 162.6 cm (5' 4) 06/13/2019 3:22 PM WORT EXTRACTOR Body Mass Index 29.01 06/13/2019 3:22 PM WORT EXTRACTOR Plan of Treatment Health Maintenance Due Date Last Done Comments ADVANCE CARE PLANNING 1970 ANNUAL REVIEW OF HM ORDERS 1968 CT COLONOGRAPHY 1968 FIT-DNA (Cologuard) 1968 FIT 1968 FLEX SIG 1968 MAMMO SCREENING 1968 COVID-19 Vaccine (#1) 06/15/1969 COLONOSCOPY 1978 COLORECTAL CANCER SCREENING 1978 HIV SCREENING 12/14/1983 HEPATITIS C SCREENING 1986 HEPATITIS B IMMUNIZATION (3 04/30/2006 11/26/2005, 10/30/19 06 of 3 - Hep B Twinrix 3-dose series) YEARLY PREVENTIVE VISIT 08/17/2006 08/17/2005, 12/29/2004, 12/25/2003, Additional history exists PAP 08/17/2008 08/17/2005, 12/29/2004, 12/25/2003, Additional history exists DTAP/TDAP/TD IMMUNIZATION 05/09/2013 05/09/2003, 11/29/2002 , (3 - Td or Tdap) 11/29/2002 ZOSTER IMMUNIZATION (1 of 2018 2) PHQ-2 (once per calendar 05/09/2021 year) INFLUENZA VACCINE (#1) 2022 LIPID 09/20/2023 09/19/2018, 12/29/2004, 11/29/2002 IPV IMMUNIZATION Aged Out No longer eligi ble based on patient 's age to complete this topic MENINGITIS IMMUNIZATION Aged Out No longe r eligible based on patient 's age to complete this topic Pneumococcal Vaccine: Aged Out No longer eligible Pediatrics (0 to 5 Years) based on patient's age and At-Risk Patients (6 to to co mplete this topic 64 Years) Insurance Payer Benefit Plan / Subscriber ID Effective Dates Phone Addre ss Type Group MEDICA MEDICA CHOICE [id number] 2019-Present [phone] [address] [address] Indemnity [address] [place] [address] (Work) [id number] Advance Directives For more information, please contact: [phone] Latest Code Status on File Code Status Date Activated Date Inactivated Comments Full Code 06/05/2019 1:07 PM 06/06/2019 12:54 PM Post-op Question Answer Comments Code status determined by: Other (please document) Care Teams Accounting Administrative Assistant Relationship Specialty Start Date End Date Nicolasa Hadley MD PCP - General Family Practice [facility]18[facility] [address] [place], [place] [id number]
--- OUTSIDE RECORDS SUMMARY | 2022-03-02 16:09 | XMS_ITS | Encounter Summary ---
:1970 Author Organization [facility] Address [address] [place] [address]. [place] [address] Care Team Providers Name Role Phone Nicolasa Hadley MD Primary Care Provider [phone] Encounter Details Date Type Department Care Team Description 09/05/2019 Virtual Visit [facility] Latasha Escobar Post-surg ical hypothyroidism (Primary Dx); [facility] [place] GERALDINE Alicia CNP S/P total thyroidectomy [id number] [facility] [id number] [place] [address], [id number] [place] [address] Social History Tobacco Use Types Packs/Day Years Used Date Smoking Tobacco: Never Smokeless Tobacco: Never Alcohol Use Standard Drinks/Week Comments Yes 0 (1 standard drink = 0.6 oz pure alcoho l) occasionally Sex Assigned at Date Recorded Not on file documented as of this encounter Progress Notes Latasha Escobar APRN CNP - 09/05/2019 1:30 PM CDT Name: Coretta Monaco Last seem 02/21/2019 for thyroid nodule. HPI: Thyroid nodules have been known since 02/2012. 08/07/2015: Thyroid ultrasound done at [facility] reports right lobe 5.7 x 1. [...] 1.1 cm. 08/14/2015: FNA biopsy done at [facility] of the dominant right nodule and the left nodule consistent with benign colloid nodule. 08/18/2016: Repeat thyroid US done at [facility] reports right lobe increased to 6.3 x 1.7 x 2.8 cm with the largest right nodule increased in size and now measuring 3.4 x 1.6 x 2.3 cm. Left lobe increased in size and now measuring 5.4 x 1.8 x 1.6 cm. The left lobe nodule is stable at 1.4 x 0.8 x 1.2 cm. 09/02/2017: Repeat thyroid US done at [facility] showed no significant changes in thyroid gland [...] range. Most recent TSH done 09/19/2018 at [facility] was 0.907. She denies any personal history [...] ??? C NONSPECIFIC PROCEDURE 1998 NVD ??? 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 THYROIDECTOMY N/A 06/05/2019 Procedure: TOTAL THYROIDECTOMY; Surgeon: Filomena Frank MD; Location: [facility] OR Family Hx: Family History Problem Relation Age [...] resource strain: Not on file ??? Food insecurity Worry: Not on file Inability: Not on file ??? Transportation needs Medical: Not on file Non-medical: Not on file Tobacco Use ??? Smoking status: Never Smoker ??? Smokeless tobacco: Never Used Substance and Sexual Activity ??? Alcohol use: Yes Comment: occasionally ??? Drug use: No ??? Sexual activity: Yes Partners: Male control/protection: Condom Lifestyle ??? Physical activity Days per week: Not on file Minutes per session: Not on file ??? Stress: Not on file Relationships ??? Social connections Talks on phone: Not on file Gets together: Not on file Attends taoism service: Not on file Active member of [...] medication list which includes the following prescription(s): calcium carbonate 500 mg(elemental), cyanocobalamin, docusate sodium, fexofenadine hcl, gabapentin, levothyroxine, sumatriptan, topamax, and vitamin d. Review of Systems 10 point ROS neg other than the symptoms noted above in the HPI. Physical Exam VS: LMP 10/25/2005 GENERAL: AXOX3, NAD, well dressed, answering questions [...] intact LABS: TFTs: TSH: 0.907 (09/19/2018 - [facility]) Thyroid Ultrasound: Copies available for review [...] 2011 and 2016 - repeat US in 2018 and 2018 relatively stable with the most [...] following surgical consult Latasha Escobar NP Endocrinology [facility] CC: Latasha Escobar APRN CNP - 09/05/2019 1:30 PM CDT Coretta Monaco is a 48 year old female who is being evaluated via a billable video visit. The patient has been notified of following: This video visit will be conducted via a call between you and your physician/provider. We have found that certain health care needs can be provided without the need for an in-person physical exam. This service lets us provide the care you need with a video conversation. If a prescription is necessarywe can send it directly to your pharmacy. If lab work is needed we can place an order for that and you can then stop by our lab to have the test done at a later time. Video visits are billed at different rates depending on your insurance coverage. Please reach out toyour insurance provider with any questions. If during the course of the call the physician/provider feels a video visit is not appropriate, you will not be charged for this service. Patient has given verbal consent for Video visit? Yes How would you like to obtain your AVS? [facility] Patient would like the video invitation sent by: Text to cell phone: [phone] Will anyone else be joining your video visit? No Video-Visit Details Type of service: Video Visit Video Start Time: 1:38 pm Video End Time: 1:45 pm Originating Location (pt. Location): Home Distant Location (provider location): [facility] Mode of Communication: Video Conference via Doximity Name: Coretta Monaco Last seem 02/21/2019 for thyroid nodule now postsurgical hypothyroid. HPI: Thyroid nodules have been known since 02/2012. 08/07/2015: Thyroid ultrasound done at [facility] reports right lobe 5.7 x 1. [...] 1.1 cm. 08/14/2015: FNA biopsy done at [facility] of the dominant right nodule and the left nodule consistent with benign colloid nodule. 08/18/2016: Repeat thyroid US done at [facility] [place] reports right lobe increased to 6.3 x 1.7 x 2.8 cm with the largest right nodule increased in size and now measuring 3.4 x 1.6 x 2.3 cm. Left lobe increased in size and now measuring 5.4 x 1.8 x 1.6 cm. The left lobe nodule is stable at 1.4 x 0.8 x 1.2 cm. 09/02/2017: Repeat thyroid US done at [facility] [place] showed no significant changes in thyroid gland [...] now measuring 1.4 x 0.9 x 1.2. 06/05/2019: thyroidectomy. Surgical pathology was benign. Currently treated with levothyroxine 125 mcg/day. PMH/PSH: Past Medical History: Diagnosis Date ??? Abnormal maternal glucose tolerance, antepartum glucose abnormality after delivery x 2 weeks ??? MEDICAL HISTORY OF - rectal pocket ??? 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 C NONSPECIFIC PROCEDURE 1998 NVD ??? 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 THYROIDECTOMY N/A 06/05/2019 Procedure: TOTAL THYROIDECTOMY; Surgeon: Filomena Frank MD; Location: [facility] OR Family Hx: Family History Problem Relation Age [...] resource strain: Not on file ??? Food insecurity Worry: Not on file Inability: Not on file ??? Transportation needs Medical: Not on file Non-medical: Not on file Tobacco Use ??? Smoking status: Never Smoker ??? Smokeless tobacco: Never Used Substance and Sexual Activity ??? Alcohol use: Yes Comment: occasionally ??? Drug use: No ??? Sexual activity: Yes Partners: Male control/protection: Condom Lifestyle ??? Physical activity Days per week: Not on file Minutes per session: Not on file ??? Stress: Not on file Relationships ??? Social connections Talks on phone: Not on file Gets together: Not on file Attends taoism service: Not on file Active member of [...] medication list which includes the following prescription(s): calcium carbonate 500 mg(elemental), cyanocobalamin, docusate sodium, fexofenadine hcl, gabapentin, levothyroxine, sumatriptan, topamax, and vitamin d. Review of Systems 10 point ROS neg other than the symptoms noted above in the HPI. Physical Exam VS: LMP 10/25/2005 GENERAL: AXOX3, NAD, well dressed, answering questions appropriately, appears stated age. HEENT: no exophthalmos, no proptosis, no lig lag, no retraction NECK: CV: LUNGS: Normal respiratory effort EXTREMITIES: NEUROLOGY: MSK: LABS: TFTs: ENDO THYROID LABS-[facility] Latest Ref Rng & Units 09/19/2018 TSH 0.270 - 4.200 uIU/ml 0.907 Thyroid Ultrasound: Copies available for review as scanned documents. All pertinent notes, labs, and images personally reviewed by me. A/P Ms.Kristen Victorina Monaco is a 48 year old being evaluated via video visit for post- surgical hypothyroidism: Currently treated with levothyroxine 125 mcg/day. Feeling euthyroid for the most part. Having some emotional lability and constipation. Plan to obtain TFT's post-COVID and adjust levo dose if indicated. Labs ordered today: Orders Placed This Encounter Procedures ??? TSH ??? T4 FREE Radiology/Consults ordered today: None Follow-up: TBD based on lab results. Latasha Escobar NP Endocrinology [facility] CC: documented in this encounter Plan of Treatment Not on filedocumented as of this encounter Visit Diagnoses Diagnosis Post-surgical hypothyroidism - Primary Postsurgical hypothyroidism S/P total thyroidectomy Other postprocedural status documented in this encounter Care Teams Seam Presser Relationship Specialty Start Date End Date Nicolasa Hadley MD PCP - General Family Practice 04/18/19 [place] [address] documented as of this encounter
--- OUTSIDE RECORDS SUMMARY | 2022-03-02 16:09 | XMS_ITS | Encounter Summary ---
:1970 Author Organization [facility] Address [address] [place] [address] Care Team Providers Name Role Phone Nicolasa Hadley MD Primary Care Provider [phone] Reason for Visit Auth/Cert Specialty Diagnoses / Procedures Referred By Contact Refer red To Contact Surgery Diagnoses Non-toxic multinodular goiter Non-toxic multinodular goiter [E04.2] Rh Periop Servic es Procedures THYROIDECTOMY, TOTAL [address] [place], [place] [address] Phone: Fax: Referral ID Status Reason Start Date Expiration Date Visits Requ ested Visits Authorized [id number] 1 1 Encounter Details Date Type Department Care Team Description 06/05/2019 - [facility], S/P total thyroidectomy (Primary Dx); 06/06/2019 Encounter Renetta Butt MD Non-toxic multinodular goiter; [address] Non-toxic multinodular goite r [address] [place] [id number] [phone] Social History Tobacco Use Types Packs/Day Years Used Date Smoking Tobacco: Never Smokeless Tobacco: Never Alcohol Use Standard Drinks/Week Comments Yes 0 (1 standard drink = 0.6 oz pure alcoho l) occasionally Sex Assigned at Date Recorded Not on file documented as of this encounter Last Filed Vital Signs Vital Sign Reading Time Taken Comments Blood Pressure 121/74 06/06/2019 7:39 AM CIRCULAR SAW FILER Pulse 84 06/06/2019 3:26 AM CIRCULAR SAW FILER Temperature 36.7 ??C (98 ??F) 06/06/2019 7:39 AM CIRCULAR SAW FILER Respiratory Rate 15 06/06/2019 7:39 AM CIRCULAR SAW FILER Oxygen Saturation 96% 06/06/2019 7:39 AM CIRCULAR SAW FILER Inhaled Oxygen Concentration - - Weight 76.7 kg (169 lb) 06/05/2019 7:03 AM CIRCULAR SAW FILER Height 162.6 cm (5' 4) 06/05/2019 7:03 AM CIRCULAR SAW FILER Body Mass Index 29.01 06/05/2019 7:03 AM CIRCULAR SAW FILER documented in this encounter Discharge Instructions Discharge InstructionsJackie Ridlye PA-C - 06/06/2019 8:57 AM CIRCULAR SAW FILER HOME CARE FOLLOWING THYROIDECTOMY/LOBECTOMY Drs. Molina Flor, Tryo Starkey, Candi De Los Santos Special instructions for Coretta Frank: --Discharge medications: Calcium supplement, Levothyroxine and [place] -Calcium Taper Schedule: Take two tablets every 8 hours for one week, then decrease to two tablets every 12 hours for one week, then decrease to one tablet every 12 hours for one week, then decrease toone tablet daily until gone. --Follow up appointment with Dr. Starkey in 1-3 weeks, follow up with Manager Molecular in 4-6 weeks. RESULTS: Call the office [...] Walk around frequently. You may consider an gshu-djo-olhwcgs stool-softener. Your Pharmacist can assist you with [...] to discuss with the nurse or physician plastic surgery assistant. # There is a surgeon TONG CARRIER on weekday evenings and over the weekend in case of urgent need only, andmay be contacted at the same number. If you are having an emergency, call 911 or proceed to your nearest emergency department. ULAR SAW FILER documented in this encounter Medications at Time [...] Ridley PA-C - 06/06/2019 8:40 AM CST [facility] General Surgery Progress Note Assessment and Plan: [...] Dr. Starkey in 1-3 weeks. RTC with Manager Molecular in 4-6 weeks. Interval History: Mild sore [...] 2103 ANUJ 8.6 8.6 Jackie Ridley PA-C ULAR SAW FILER documented in this encounter Miscellaneous Notes Plan [...] transport. OBSERVATION patient END time: 1055 a ULAR SAW FILER Plan of Care - Gregor Montano RN - 06/06/2019 10:00 AM CST PRIMARY DIAGNOSIS: Total thyroidectomy OUTPATIENT/OBSERVATION GOALS TO BE MET BEFORE DISCHARGE: 1. Stable vital signs Yes 2. Tolerating diet:Yes 3. Pain controlled with oral pain medications: Yes 4. Positive bowel sounds: hypoactive 5. Voiding without difficulty: Yes 6. Able to ambulate: Yes 7. Provider specific discharge goals met: Yes Shanker Out Nurse Safe discharge environment identified: Yes Barriers [...] met and patient is ready for discharge. ULAR SAW FILER Plan of Darling Reilly RN - 06/06/2019 4:36 AM CST PRIMARY DIAGNOSIS: s/p total thyroidectomy OUTPATIENT/OBSERVATION GOALS TO BE MET BEFORE DISCHARGE: 1. Stable vital signs Yes 2. Tolerating diet:Yes 3. Pain controlled with oral pain medications: Yes 4. Positive bowel sounds: Yes 5. Voiding without difficulty: Yes 6. Able to ambulate: Yes 7. Provider specific discharge goals met: Yes Shanker Out Nurse Safe discharge environment identified: Yes Barriers to discharge: Yes Entered by: Darling Avila 06/06/2019 4:36 AM VSS, pt is A&Ox4, up SBA, incision C/D/I, ALICIA x1 with serosanguinous drainage, tolerating a regular diet, will continue to monitor Please review provider order for any additional goals. Nurse to notify provider when observation goals have been met and patient is ready for discharge. ULAR SAW FILER Plan of Darling Reilly RN - 06/06/2019 12:40 AM CST PRIMARY DIAGNOSIS: s/p total thyroidectomy OUTPATIENT/OBSERVATION GOALS TO BE MET BEFORE DISCHARGE: 1. Stable vital signs Yes 2. Tolerating diet:Yes 3. Pain controlled with oral pain medications: Yes 4. Positive bowel sounds: Yes 5. Voiding without difficulty: Yes 6. Able to ambulate: Yes 7. Provider specific discharge goals met: Yes Shanker Out Nurse Safe discharge environment identified: Yes Barriers to discharge: Yes Entered by: Darling Avila 06/06/2019 12:40 AM VSS, pt is A&Ox4, up SBA, SL, incision c/d/I, ALICIA x1 with serosanguinous drainage, daughter at bedside, will continue to monitor Please review provider order for any additional goals. Nurse to notify provider when observation goals have been met and patient is ready for discharge. ULAR SAW FILER Plan of Care - Darling Avila RN - 06/05/2019 9:33 PM CST PRIMARY DIAGNOSIS: s/p total thyroidectomy OUTPATIENT/OBSERVATION GOALS TO BE MET BEFORE DISCHARGE: 1. Stable vital signs Yes 2. Tolerating diet:Yes 3. Pain controlled with oral pain medications: Yes 4. Positive bowel sounds: Yes 5. Voiding without difficulty: Yes 6. Able to ambulate: Yes 7. Provider specific discharge goals met: Yes Shanker Out Nurse Safe discharge environment identified: Yes Barriers to discharge: Yes Entered by: Darling Avila 06/05/2019 9:34 PM VSS, pt is A&Ox4, up SBA, incision C/D/I, ALICIA with serosanguinous drainage, voiding adequately, will continue to monitor Please review provider order for any additional goals. Nurse to notify provider when observation goals have been met and patient is ready for discharge. ULAR SAW FILER Plan of Idania - Mohit Saldana RN [...] Pt. Walked hallways, voiding, ate regular dinner Shanker Out Nurse Safe discharge environment identified: Yes Barriers to discharge: No Entered by: Mohit Saldana 06/05/2019 2:49 PM Please review provider order for any additional goals. Nurse to notify provider when observation goals have been met and patient is ready for discharge. ULAR SAW FILER Plan of Care - Mohit Saldana RN [...] coughing and swallowing. Pain improved to 2/10. Shanker Out Nurse Safe discharge environment identified: Yes Barriers to discharge: No Entered by: Mohit Saldana 06/05/2019 2:49 PM Please review provider order for any additional goals. Nurse to notify provider when observation goals have been met and patient is ready for discharge. ULAR SAW FILER Pharmacy-Admission Medication History - Nickie Caceres [facility] - 06/05/2019 1:25 PM CST Pharmacy reviewed prior to admission med list from pre-admitting Aubrie bae. Added standard OTC sig to b12, vit [...] a month at Unknown time Reported, Patient ULAR SAW FILER Op Note - Filomena Starkey MD - 06/05/2019 10:56 AM CST General Surgery Operative Note PREOPERATIVE DIAGNOSIS: Non-toxic multinodular goiter [E04.2] POSTOPERATIVE DIAGNOSIS: Non-toxic multinodular goiter [E04.2] PROCEDURE: Total thyroidectomy ANESTHESIA: General. PREOPERATIVE MEDICATIONS: Ancef 2 gm SURGEON: Filomena Starkey MD TESTING DIRECTOR: Laurie Baum PA=C - the physician plastic surgery assistant was medically necessary in providing adequate [...] MD 06/05/2019 9:47 AM Filomena Starkey MD ULAR SAW FILER documented in this encounter Plan of Treatment Not on filedocumented as of this encounter Procedures Procedure Name Priority Date/Time Associated Diagnosis Comme nts BASIC METABOLIC PANEL Routine 06/06/2019 6:52 Non-toxic Res ults for this AM CIRCULAR SAW FILER multinodular goiter procedur e are in the results section. CALCIUM Timed 06/05/2019 9:03 Non-toxic Results for this PM CIRCULAR SAW FILER multinodular goiter procedur e are in the results section. SURGICAL PATHOLOGY Routine 06/05/2019 9:47 Result s for this EXAM AM CIRCULAR SAW FILER procedure are i n the results section. THYROIDECTOMY Routine 06/05/2019 6:55 Non-toxic AM CIRCULAR SAW FILER multinodular goiter documented in this encounter Results (ABNORMAL) Basic metabolic panel (06/06/2019 6:52 AM CIRCULAR SAW FILER) athologist Signature Sodium 143 133 - 144 06/06/2019 [facility] mmol/L 7:31 AM [facility] Potassium 3.5 3.4 - 5.3 06/06/2019 [facility] mmol/L 7:31 AM [facility] Chloride 112 (H) 94 - 109 06/06/2019 [facility] mmol/L 7:31 AM [facility] Carbon Dioxide 27 20 - 32 06/06/2019 [facility] mmol/L 7:36 AM [facility] Anion Gap 4 3 - 14 06/06/2019 [place] mmol/L 7:36 AM [facility] Glucose 109 (H) 70 - 99 06/06/2019 [facility] mg/dL 7:36 AM [facility] Urea Nitrogen 6 (L) 7 - 30 06/06/2019 [facility] mg/dL 7:36 AM [facility] Creatinine 0.89 0.52 - 06/06/2019 [facility] 1.04 mg/dL 7:36 AM [facility] GFR Estimate 75 >60 06/06/2019 [place] mL/min/{1. 7:36 AM [facility] 73_m2} [facility] Comment: Non GFR Calc Starting 04/25/2018, serum creatinine ba sed estimated GFR (eGFR) will be calculated using the Chronic Kidney Dise [facility] Epidemiology Collaboration (CKD-EPI) equation. GFR Estimate If 87 >60 mL/min/{1.73_m2} 06/06/2019 7: 36 AM [facility] Comment: GFR Calc Starting 04/25/2018, serum creatinine ba sed estimated GFR (eGFR) will be calculated using the Chronic Kidney Dise [facility] Epidemiology Collaboration (CKD-EPI) equation. Calcium 8.6 8.5 - 10.1 mg/dL 06/06/2019 7:36 AM [facility] Specimen Anatomical Collection Method Collection Time Receive d Time (Source) Location / / Volume Laterality Blood specimen 06/06/2019 6:52 AM 020 6:53 (specimen) CIRCULAR SAW FILER AM [facility] Filomena Starkey MD LAB - BLOOD ORDERABLES Performing Organization Address City/State/ZIP Code Phon e Number [facility] [address] [address] [facility] [address] [place], [place] [address], [facility] [phone] [facility] [address] [address], [facility] Calcium (06/05/2019 9:03 PM CIRCULAR SAW FILER) P athologist Signature Calcium 8.6 8.5 - 10.1 06/05/2019 [place] mg/dL 9:15 PM [facility] Specimen Anatomical Collection Method Collection Time Receive d Time (Source) Location / / Volume Laterality Blood specimen 06/05/2019 9:03 PM 020 9:04 (specimen) CIRCULAR SAW FILER PM CIRCULAR SAW FILER Filomena Starkey MD LAB - BLOOD ORDERABLES Performing Organization Address City/State/ZIP Code Phon e Number [facility] [address] [address] [facility] [address] [address], [place] [phone] Surgical pathology exam (06/05/2019 9:47 AM CIRCULAR SAW FILER) Component Value Ref Test Analysis Performed At [facility] gist Range Method Time Signature Copath Report Patient Name: CORETTA FRANK MR#: [id number] Specimen #: [id number] Collected: 06/05/2019 Received: 06/05/2019 [...] of this testing was completed at the [facility], with the professional compo nent performed at the [facility], [address] [place] [address] [phone] ([phone]) CPT Codes: A: 04184-BQ1 COLLECTION SITE: Client: [facility] Location: [facility] (R) Specimen (Source) Anatomical Collection Method Collection Time Re ceived Time Location / / Volume Laterality Tissue specimen THYROID STRUCTURE 06/05/2019 9:47 AM (specimen) / Unknown CIRCULAR SAW FILER Filomena LEUNG Performing Organization Address City/State/ZIP Code Phon e Number [facility] documented in this encounter Visit Diagnoses Diagnosis Non-toxic multinodular goiter - Primary Nontoxic multinodular goiter Non-toxic multinodular goiter Nontoxic multinodular goiter S/P total thyroidectomy Other postprocedural status S/P thyroid surgery documented in this encounter Admitting Diagnoses Diagnosis Non-toxic multinodular goiter Nontoxic multinodular goiter documented in this encounter Administered Medications Inactive Administered Medications - up to 3 most recent administrations Medication Order MAR Action Action Date Dose Rate Site acetaminophen (TYLENOL) tablet 650 Given 06/06/2019 9:07 AM CIRCULAR SAW FILER 650 mg mg 650 mg, Oral, EVERY 6 HOURS PRN, mild pain, Starting on Tue06/05/19 at 1306, Do not use if patient has an active opioid/acetaminophen analgesic order for pain. Maximum acetaminophen dose from all sources = 75 mg/kg/day not to exceed 4 grams/day., Post-procedure acetaminophen (TYLENOL) tablet 975 mg Given 06/05/2019 8:18 AM CIRCULAR SAW FILER 975 mg 975 mg, Oral, ONCE, On [...] suspension 2,500 mg Given 06/06/2019 6:24 AM CIRCULAR SAW FILER 2,500 mg 2,500 mg, Oral, EVERY 8 HOURS, First dose on Tue06/05/19 at 1400, Post-procedure Given 06/05/2019 10:18 PM CIRCULAR SAW FILER 2,500 mg Given 06/05/2019 2:33 PM CIRCULAR SAW FILER 2,500 mg fentaNYL (PF) (SUBLIMAZE) injection 25-50 Given 06/05/2019 12:25 PM CIRCULAR SAW FILER 50 mcg mcg 25-50 mcg, Intravenous, EVERY [...] 3-5 minutes., PACU Given 06/05/2019 11:52 AM CIRCULAR SAW FILER 50 mcg gabapentin (NEURONTIN) capsule 300 mg Given 06/05/2019 10:03 PM CIRCULAR SAW FILER 300 mg 300 mg, Oral, AT BEDTIME, First dose on Tue06/05/19 at 2200, Post-procedure HYDROcodone-acetaminophen (NORCO) 5-325 MG Given 06/06 3:26 AM CIRCULAR SAW FILER 1 tablet per tablet 1-2 tablet 1-2 [...] analgesic side effects. Hold while on IV PULMONARY DISEASE SPECIALIST or with regular IV opioid dosing. Maximum acetaminophen dose from all sources= 75 mg/kg/day not to exceed 4 grams, Post-procedure Given 06/05/2019 10:03 PM CIRCULAR SAW FILER 1 tablet Given 06/05/2019 5:48 PM CIRCULAR SAW FILER 1 tablet HYDROmorphone (PF) (DILAUDID) injection 0.2 Given 06/05/2019 8:07 PM CIRCULAR SAW FILER 0.2 mg mg 0.2 mg, Intravenous, EVERY 2 HOURS PRN, other, pain control or improvement in physical function. Hold dose for analgesic side effects., Starting on Tue06/05/19 at 1306, Notify the provider to assess for uncontrolled pain or analgesic side effects. Hold while on IV PULMONARY DISEASE SPECIALIST or with regular IV opioid dosing. For ordered IV doses 0.1-4 mg give IV Push undiluted. Administer each 2mg over 2-5 minutes., Post-procedure Given 06/05/2019 3:52 PM CIRCULAR SAW FILER 0.2 mg labetalol (NORMODYNE/TRANDATE) syringe 1 0 mg Given 06/05/2019 11:23 AM CIRCULAR SAW FILER 10 mg 10 mg, Intravenous, ONCE, On Tue06/05/19 at 1130, For 1 dose, Give doses less than 20 mg over 2 minutes. For doses of 20 to 80 mg, give EACH 20 mg over 2 minutes IV push. labetalol (NORMODYNE/TRANDATE) syringe 1 0 mg Given 06/05/2019 11:59 AM CIRCULAR SAW FILER 10 mg 10 mg, Intravenous, ONCE, On Tue06/05/19 at 1200, For 1 dose, Give doses less than 20 mg over 2 minutes. For doses of 20 to 80 mg, give EACH 20 mg over 2 minutes IV push. lactated ringers infusion New Bag 06/05/2019 4:15 PM CIRCULAR SAW FILER 100 mL/hr at 100 mL/hr, Intravenous, CONTINUOUS, May Saline lock when taking PO well., Post-procedure, Starting on Tue06/05/19 at 1308, Until Tue06/06/19 at 1249 Restarted 06/05/2019 1:31 PM CIRCULAR SAW FILER 100 mL/hr levothyroxine (SYNTHROID/LEVOTHROID) tablet Given 05/10 9:07 AM CIRCULAR SAW FILER 125 mcg 125 mcg 125 mcg, Oral, DAILY, First dose on Tue06/06/19 at 0800, Post-procedure ondansetron (ZOFRAN) injection 4 mg Given 06/05/2019 6:59 PM CIRCULAR SAW FILER 4 mg 4 mg, Intravenous, EVERY 6 [...] flush 3 mL Given 06/06/2019 6:24 AM CIRCULAR SAW FILER 3 mLs 3 mL, Intracatheter, EVERY 8 HOURS, First dose on Tue06/05/19 at 1400, And Q1H PRN, to lock peripheral IV dormant line., Post-procedure Given 06/05/2019 10:19 PM CIRCULAR SAW FILER 3 mLs topiramate (TOPAMAX) tablet 100 mg Given 06/06/2019 9:07 AM CIRCULAR SAW FILER 100 mg 100 mg, Oral, 2 TIMES DAILY, First dose on Tue06/05/19 at 2000, Post-procedure Given 06/05/2019 8:03 PM CIRCULAR SAW FILER 100 mg documented in this encounter Active and Recently Administered Medications Times are shown in CIRCULAR SAW FILER. Scheduled Medication Order 06/04/2019 06/05/2019 06/06/2019 acetaminophen [...] Mohit Saldana RN)2218 (Given - Provider: Darling Avila, DORITA) 0624 (Given - Provider: Darling Avila RN) 2,500 mg, Oral, EVERY 8 HOURS, First dos e on Tue06/05/19 at 1400, Post-procedure ceFAZolin (ANCEF) intermittent infusion 2 g in 100 mL dextrose PRE-MIX (COMPLETED) 0826 (Given - Provider: Rangel Cha APRN GRANITE WORKER)1026 (Given - Provider: Remigio Cha APRN GRANITE WORKER) Routine, 2 g, Intravenous, PRE-OP/PRE-WV OCEDURE, Starting Tue06/05/19 at 0722, For 1 dose, Give first dose within 1 hour PRIOR to incision. If patient weight is greater than or equal to 120 kg increase dose to 3 g., Indications: Perioperative Pharmacoprophylaxis, Pr e-procedure gabapentin (NEURONTIN) capsule 300 mg 22 (Given - Provider: Darling Avila RN) 300 [...] IV push. levothyroxine (SYNTHROID/LEVOTHROID) tablet 125 mcg 0907 (Given - Provider: Gregor Montano RN) 125 mcg, Oral, DAILY, First dose on Tue06/06/19 at 0800, Post-pr ocedure sodium chloride (PF) 0.9% PF flush 3 mL 1330 (Not Given - Provider: Mohit Saldana RN - Reason: IV Infusing)2219 (Given - Provider: Darling Avila RN) 0624 (Given - Provider: Darling Avila RN) 3 mL, Intracatheter, EVERY 8 HOURS, Firs t dose on Tue06/05/19 at 1400, And Q1H PRN, to lock peripheral IV dormant line., Post-procedure topiramate (TOPAMAX) tablet 100 mg 2002 (Given - Provider: Darling Avila RN) 09 (Given - Provider: Gregor Montano RN ) 100 mg, Oral, 2 TIMES DAILY, First dose on Tue06/05/19 at 20 00, Post-procedure Continuous Medication Order 06/04/2019 06/05/2019 06/06/2019 lactated ringers infusion (CANCELED) 074 1 (New Bag - Provider: Remigio Cha APRN GRANITE WORKER)0907 (New Bag - Provider: Remigio Cha APRN GRANITE WORKER)1044 (Anesthesia Volume Adjustment - Provider: Remigio Cha APRN GRANITE WORKER) at 25 mL/hr, Intravenous, CONTINUOUS, IF [...] 06/05/2019 06/06/2019 acetaminophen (TYLENOL) tablet 650 mg 906 (Given - Provider: Gregor Montano, DORITA) 650 mg, Oral, EVERY 6 HOURS PRN, [...] mcg (CANCELED) 1152 (Given - Provider: Kristen Johnston RN)1225 (Given - Provider: Kristen Johnston RN) 25-50 mcg, Intravenous, EVERY 5 MIN PRN, Starting Tue06/05/19 at 1110, other, acute pain while in PACU., MAX cumulative dose = 250 mcg. Use fentaNYL (SUBLIMAZE) initially, as a short acting agent for ac apache pain control. If insufficient, or a longer acting agent is needed, begin morphine or HYDROmorphone (DILAUDID) if ordered. For ordered IV doses 1-100 mcg give IV Push undiluted over a minimum of 3-5 minutes., PACU HYDROcodone-acetaminophen (NORCO) 5-325 MG per tablet 1-2 ta blet 1331 (Given - Provider: Mohit Saldana RN)1748 (Given - Provider: Mohit Saldana RN)2203 (Given [...] analgesic side effects. Hold while on IV PULMONARY DISEASE SPECIALIST or with regular IV opioid dosing. Maximum acetaminophen dose from all sources= 75 mg/kg/day not to exceed 4 grams, Post-proc edure HYDROmorphone (PF) (DILAUDID) injection 0.2 mg 1552 (Given - Provider: Mohit Saldana RN)2006 (Given - Provider: Darling Avila, DORITA) 0.2 mg, Intravenous, EVERY 2 HOURS PRN, Starting Tue06/05/19 at 1306, Until Tue06/06/19 at 1249, other, pain control or improvement in physical function. Hold dose for analgesic side effects., Post-proc edure, Notify the provider to assess for uncontrolled pain or analgesic side effects. Hold while on IV PULMONARY DISEASE SPECIALIST or with regular IV opioid dosing. For [...] ondansetron (ZOFRAN) injection 4 mg(Linked Group 1) 1321 (Given - Provider: Mohit Saldana RN) 4 mg, Intravenous, EVERY 6 HOURS PRN, na usea, vomiting, Administer over 2-5 Minutes, Starting Tue06/05/19 at 1306, This is Step 1 of nausea and vomiting management. If nausea not resolved in 15 minutes, go to Step 2 prochlorperazine (COMPAZIN E). Irritant. For ordered IV doses 0.1-4 mg, give IV Push undiluted over 2-5 minutes., Post-procedure ondansetron (ZOFRAN-ODT) ODT tab 4 mg(Linked Group 1) 148 (See Alternative - Provider: Mohit Saldana RN) [...] peripheral IV flush post IV meds, Starting Tue06/05/19 at 1306, Post-procedure SUMAtriptan (IMITREX) tablet 100 mg 100 mg, Oral, DAILY PRN, migraine, Start ing Tue06/05/19 at 1326, May repeat dose in 2 hours if no relief. Do not exceed 2 doses in 24 hours., Post-procedure Linked Groups Order Group 1: ondansetron (ZOFRAN-ODT) ODT tab 4 mgJump to med 4 mg, Oral, EVERY 6 HOURS PRN, nausea, v omiting, Starting Tue06/05/19 at 1306
This is Step 1 of [...] usea, vomiting, Administer over 2-5 Minutes, Starting Tue06/05/19 at 1306
This is Step 1 of nausea and vomiting management. If nausea not resolved in 15 minutes, go to Step 2 prochlorperazine (COMPAZINE). Irritant. For ordered IV doses 0.1-4 mg, give IV Push undiluted over 2-5 minutes.
Post-procedure Group 2: prochlorperazine (COMPAZINE) injection 10 mgJump to med 10 mg, Intravenous, EVERY 6 HOURS PRN, n ausea, vomiting, Administer over 1-2 Minutes, Starting Tue06/05/19 at 1306
This is Step 2 of [...]
Post-procedure documented in this encounter Care Teams Entry Level Management Relationship Specialty Start Date End Date Nicolasa Hadley MD PCP - General Family Practice 04/18/[address] [address] documented as of this encounter
--- OUTSIDE RECORDS SUMMARY | 2022-03-02 16:09 | XMS_ITS | Encounter Summary ---
:1970 Author Organization [facility] Address [address] [place] [id number] Care Team Providers Name Role Phone Nicolasa Hadley MD Primary Care Provider [phone] Reason for Visit Reason Onset Date Comments Erroneous encounter-disregard 06/11/2019 Encounter Details Date Type Department Care Team Description 06/05/2019 Office Visit SX SURGERY CASES Gloria Frank MD [address] [place] [address] ERRONEOUS Laurie Baum PA-C [address] [facility] [address] [place] [address] ENCOUNTER--DISREGARD (Primary Dx) Social History Tobacco Use Types Packs/Day Years Used Date Smoking Tobacco: Never Smokeless Tobacco: Never Alcohol Use Standard Drinks/Week Comments Yes 0 (1 standard drink = 0.6 oz pure alcoho l) occasionally Sex Assigned at Date Recorded Not on file documented as of this encounter Progress Notes Katheryn Reynaga - 06/05/2019 8:15 AM CST This encounter was opened in error. Please disregard. NESS FUNCTIONAL ANALYST documented in this encounter Plan of Treatment Not on filedocumented as of this encounter Visit Diagnoses Diagnosis ERRONEOUS ENCOUNTER--DISREGARD - Primary documented in this encounter Care Teams Trimmer Machine Relationship Specialty Start Date End Date Nicolasa Hadley MD PCP - General Family Practice 04/18/[address] [address] documented as of this encounter
--- OUTSIDE RECORDS SUMMARY | 2022-03-02 16:10 | XMS_ITS | Encounter Summary ---
:1970 Author Organization [facility] Address [address] [place] [address] Care Team Providers Name Role Phone Mohit Najera PA-C Primary Care Provider [phone] Encounter Details Date Type Department Care Team Description 11/23/[address] [facility] Michaela Oneal [address] [place], [place] [phone] Social History Tobacco Use Types Packs/Day Years Used Date Smoking Tobacco: Never Assessed Sex Assigned at Date Recorded Not on file documented as of this encounter Plan of Treatment Not on filedocumented as of this encounter Procedures Procedure Name Priority Date/Time Associated Diagnosis Comme nts ABSTRACT PAP (HIM EXTERNAL RESULT) Routine 10/09/2001 documented in this encounter Results ABSTRACT PAP-NO CHARGE (10/09/2001) Michaela Oneal LAB - HIM EXTERNAL RESULT documented in this encounter Visit Diagnoses Not on filedocumented in this encounter Care Teams Carder Blankets Relationship Specialty Start Date End Date Mohit Najera PA-C PCP - General 09/25/02 04/08/14 [address] [place], [place] [id number] documented as of this encounter
--- OUTSIDE RECORDS SUMMARY | 2022-03-02 16:10 | XMS_ITS | Encounter Summary ---
:1970 Author Organization [facility] Address [address] [place] [address] Care Team Providers Name Role Phone Mohit Najera PA-C Primary Care Provider [phone] Reason for Visit Reason Onset Date Comments Patient Request 08/17/2004 Encounter Details Date Type Department Care Team Description 08/17/2004 Telephone [facility] Victorina Jordan MD Patient Request [place] XXX NO INFO FOUND XXX [address] [facility] [place] XXX [place], [place] [address] [place] [address] Social History Tobacco Use Types Packs/Day Years Used Date Smoking Tobacco: Never Alcohol Use Standard Drinks/Week Comments Yes 0 (1 standard drink = 0.6 oz pure alcoho l) occasionally Sex Assigned at Date Recorded Not on file documented as of this encounter Miscellaneous Notes Telephone Encounter - Marian Joseph - 08/20/2004 1:54 PM CDT Pt returned call and agreed to make appt with Dr. Jordan for further eval of her rectal problem, also c/o vaginal irritation my chart forms mailed to patient's home address Marian Joseph/MONTRELL Telephone Encounter - Rosa Gr - 08/20/2004 10:03 AM CDT LMOM at home # to call silver. Rosa Gr RN Telephone Encounter - Gill Jordan - 08/19/2004 12:38 PM CDT can you get more info or (ideally) have her schedule appt? send her MyChart forms? Gill Haley. Telephone Encounter - 08/17/2004 3:45 PM CDT Staff Message copied by CHRISTA GOSS on 08/17/2004 at 3:45 PM ------ Message from: THIERRY HOPKINS Created: 08/17/2004 at 3:17 PM Regarding: MD - concerns to discuss with MD Contact: Pt would like to speak to Dr Jordan at her convenience with [facility] concerns. Pls call her at work anyday after 315p and have her paged. [phone]. Thanks jlfadi documented in this encounter Plan of Treatment Not on filedocumented as of this encounter Visit Diagnoses Not on filedocumented in this encounter Care Teams Mutuel Teller Relationship Specialty Start Date End Date Mohit Najera PA-C PCP - General 09/25/02 04/08/14 [address] [place] [address] documented as of this encounter
--- OUTSIDE RECORDS SUMMARY | 2022-03-02 16:10 | XMS_ITS | Encounter Summary ---
:1970 Author Organization [facility] [place] Address [address] [place] [address] Care Team Providers Name Role Phone Mohit Najera PA-C Primary Care Provider [phone] Reason for Referral - Closed Specialty Diagnoses / Procedures Referred By Contact Refer red To Contact Diagnoses Other convulsions Gill Jordan MD XXX NO INFO FOUND XX X [place] [address] Referral ID Status Reason Start Date Expiration Date Visits Requ ested Visits Authorized [id number] Closed 01/18/2003 05/08/2011 1 1 Encounter Details Date Type Department Care Team Description 01/18/2003 Orders Only [facility] Gill Jordan M D CONVULSIONS, OTHER Clinic [place] XXX NO INFO FOUND (Primary Dx) [address] [facility] [place], [place] [address] [place] [address] Social History Tobacco Use Types Packs/Day Years Used Date Smoking Tobacco: Never Alcohol Use Standard Drinks/Week Comments Yes 0 (1 standard drink = 0.6 oz pure alcoho l) occasionally Sex Assigned at Date Recorded Not on file documented as of this encounter Plan of Treatment Not on filedocumented as of this encounter Procedures Procedure Name Priority Date/Time Associated Diagnosis Comme nts ZZ CONSULT NEUROLOGY Routine 04/15/2003 Convulsions, Othe r documented in this encounter Results CONSULT NEUROLOGY (04/15/2003) Narrative This result has an attachment that is no t available. Gill Jordan MD REFERRAL documented in this encounter Visit Diagnoses Diagnosis Other convulsions - Primary documented in this encounter Care Teams Auto Brake Technician Relationship Specialty Start Date End Date Mohit Najera PA-C PCP - General 09/25/02 04/08/14 [address] [place] [address] documented as of this encounter
--- OUTSIDE RECORDS SUMMARY | 2022-03-02 16:10 | XMS_ITS | Encounter Summary ---
:1970 Author Organization [facility] Address [facility] [place] [place] [address] Care Team Providers Name Role Phone Mohit Najera PA-C Primary Care Provider [phone] Reason for Visit Reason Comments Pharyngitis 2-1/2 days Numbness tingling in feet every morni ng Encounter Details Date Type Department Care Team Description 06/17/2004 Office Visit [facility] Pop Koroma AC UTE PHARYNGITIS [facility] [place] MD (Primary Dx) [address] [place], [place] SERVICE [address] [address] [facility] [phone] [address] [place], [place] [address] (Wo rk) Social History Tobacco Use Types Packs/Day Years Used Date Smoking Tobacco: Never Alcohol Use Standard Drinks/Week Comments Yes 0 (1 standard drink = 0.6 oz pure alcoho l) occasionally Sex Assigned at Date Recorded Not on file documented as of this encounter Last Filed Vital Signs Vital Sign Reading Time Taken Comments Blood Pressure 112/70 06/17/2004 4:08 PM SENIOR VICE PRESIDENT & GENERAL COUNSEL Pulse - - Temperature 36.6 ??C (97.8 ??F) 06/17/2004 4:08 PM SENIOR VICE PRESIDENT & GENERAL COUNSEL Respiratory Rate - - Oxygen Saturation - - Inhaled Oxygen Concentration - - Weight - - Height - - Body Mass Index - - documented in this encounter Progress Notes 06/17/2004 4:15 PM SENIOR VICE PRESIDENT & GENERAL COUNSEL SUBJECTIVE: Coretta is a 33 year old female presenting with copious nasal discharge, cough dry, fever, nasal discharge clear and sore throat. Onset of symptoms was 2 days ago. Course of illness is stable. Treatment measures tried include none tried. Predisposing factors include None. 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 HEENT: Conjunctiva are not injected without discharge. Left TM is normal: no effusions, no erythema, and normal landmarks. Right TM is normal: no effusions, no erythema, and normal landmarks. Nasal mucosa is normal. Oropharyngeal exam is bilateral adenopathy and erythematous. Neck is supple with positive CARDIAC:NORMAL - regular rate and rhythm without murmur. RESP: Normal - CTA without rales, rhonchi, or wheezing. ABDOMEN: Abdomen soft, non-tender. BS normal. No masses, organomegaly CXR Findings: Not Done ASSESSMENT: Viral upper respiratory illness PLAN: Cool mist vaporizer, OTC cough suppressant/expectorant and OTC decongestant/antihistamine Follow up only if unimproved. documented in this encounter Nursing Notes 06/17/2004 4:15 PM CST >> TULIO TORREZ 06/17/2004 4:08 pm Corettavito Monaco presents for ST, extreme runny nose, sneezing, CULLEN, eyes ache x 2.5 days. Initial Temp (Src) 97.8 (Oral). BP completed using cuff size: large, right arm. Tulio Torrez LPN documented in this encounter Plan of Treatment Not on filedocumented as of this encounter Procedures Procedure Name Priority Date/Time Associated Diagnosis Comme nts HCL BETA STREP Routine 06/17/2004 4:24 PM Acute Pharyngitis Re sults for this CONFIRM SENIOR VICE PRESIDENT & GENERAL COUNSEL procedure are i n the results section. HCL STREP GROUP A Routine 06/17/2004 4:24 PM Acute Pharyngitis Results for this AG (RAPID) SENIOR VICE PRESIDENT & GENERAL COUNSEL procedure are i n the results section. documented in this encounter Results BETA STREP CONFIRM (06/17/2004 4:24 PM SENIOR VICE PRESIDENT & GENERAL COUNSEL) Component Value Ref Test Analysis Performed At [facility] gist Range Method Time Signature Specimen Throat [facility] LAB Culture Micro No Beta SCIPIO Streptococcus [facility] LAB Report status FINAL [id number] [facility] Specimen Anatomical Collection Method Collection Time Receive d Time (Source) Location / / Volume Laterality 06/17/2004 4:24 PM 5 4:29 SENIOR VICE PRESIDENT & GENERAL COUNSEL PM SENIOR VICE PRESIDENT & GENERAL COUNSEL Pop Koroma MD LABORATORY Performing Organization Address City/[facility]/ZIP [facility] Phon e Number [facility] [id number] [place] [address] [facility] STREP GROUP A AG (RAPID) (06/17/2004 4:24 PM SENIOR VICE PRESIDENT & GENERAL COUNSEL) Component Value Ref Test Analysis Performed At [facility] Range Method Time Signature Specimen Throat [facility] LAB Rapid Strep A NEGATIVE: No Group A strepto coccal antigen detected by immunoassay, await SCIPIO Screen culture report. [facility] LAB Report status FINAL [id number] [facility] LAB Specimen Anatomical Collection Method Collection Time Receive d Time (Source) Location / / Volume Laterality 06/17/2004 4:24 PM 5 4:29 SENIOR VICE PRESIDENT & GENERAL COUNSEL PM SENIOR VICE PRESIDENT & GENERAL COUNSEL Pop Koroma MD LABORATORY Performing Organization Address City/[facility]/ZIP Code Phon e Number [facility] [address] [place] [address] [facility] documented in this encounter Visit Diagnoses Diagnosis Acute pharyngitis - Primary documented in this encounter Care Teams Handle Sewer Relationship Specialty Start Date End Date Mohit Najera PA-C PCP - General 09/25/02 04/08/14 [address] [place] [address] documented as of this encounter
--- OUTSIDE RECORDS SUMMARY | 2022-03-02 16:10 | XMS_ITS | Encounter Summary ---
:1970 Author Organization [facility] Address [address] [place] [address] Care Team Providers Name Role Phone Mohit Najera PA-C Primary Care Provider [phone] Reason for Referral - Closed Specialty Diagnoses / Procedures Referred By Contact Refer red To Contact Diagnoses Rectocele Gill Jordan MD XXX [place] [address] Referral ID Status Reason Start Date Expiration Date Visits Requ ested Visits Authorized [id number] Closed 08/27/2004 05/08/2011 1 1 Reason for Visit Reason Comments Rectal Problem colon pocket Cough productive Encounter Details Date Type Department Care Team Description 08/27/2004 Office Visit [facility] Gill Jordan M D Rectocele (Primary Dx); Clinic [place] XXX NO INFO FOUND COUGH [address] [facility] XXX [place], [place] XXX [address] [place] [address] Social History Tobacco Use Types Packs/Day Years Used Date Smoking Tobacco: Never Alcohol Use Standard Drinks/Week Comments Yes 0 (1 standard drink = 0.6 oz pure alcoho l) occasionally Sex Assigned at Date Recorded Not on file documented as of this encounter Last Filed Vital Signs Vital Sign Reading Time Taken Comments Blood Pressure 114/78 08/27/2004 4:00 PM CDT Pulse - - Temperature 37.2 ??C (98.9 ??F) 08/27/2004 4:00 PM CDT Respiratory Rate - - Oxygen Saturation - - Inhaled Oxygen Concentration - - Weight 71.2 kg (157 lb) 08/27/2004 4:00 PM CDT Height - - Body Mass Index 25.93 12/25/2003 1:24 PM CDT documented in this encounter Progress Notes Gill Jordan - 08/27/2004 4:42 PM CDT SUBJECTIVE: Coretta Monaco is a 33 year old female here for: cough, referral for rectocele, 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 Plan: CONSULT COLONRECTAL SURG 786.2 COUGH-SINUSITIS/ATYPICAL BRONCHITIS WITH BRONCHOSPASM Note: > 2 wks; asbestos exposure; wakes up at night coughing; may cough so hard she may throw up.no fever, but doesn't get fevers; nose running, no prev allergies; no previous history of asthma. Plan: ZITHROMAX 250 MG OR TABS ALBUTEROL 90 MCG/ACT IN AERS rtc PRN NON-RESOLUTION FOR CXR Greater than 25 min spent in direct consultation, examination and coordination of care. documented in this encounter Nursing Notes 08/27/2004 4:00 PM CDT >> AMAN SILVA 08/27/2004 4:27 pm Coretta Monaco presents for productive cough for 16 days with exposure to Abestos and rectal problem(pocket in colon). Initial BP 114/78 Temp (Src) 98.9 (Oral) Estimated Body Mass Index is 28.08 kg/(m^2) as calculatedfrom: Height of 5' 5.25 (1.657m) as of 12/25/03 Weight of 170 lbs (77.111 kg) as of 12/25/03 . BP completed using cuff size: regular. MONTRELL Wheat documented in this encounter Plan of Treatment Not on filedocumented as of this encounter Visit Diagnoses Diagnosis Rectocele - Primary Cough documented in this encounter Care Teams Television Parts Tester Relationship Specialty Start Date End Date Mohit Najera PA-C PCP - General 09/25/02 04/08/14 [address] [place] [address] documented as of this encounter
--- OUTSIDE RECORDS SUMMARY | 2022-03-02 16:10 | XMS_ITS | Encounter Summary ---
:1970 Author Organization [facility] Address [address] [place] [address] Care Team Providers Name Role Phone Mohit Najera PA-C Primary Care Provider [phone] Reason for Visit Reason Comments Lab Result Notice Encounter Details Date Type Department Care Team Description 12/10/2002 Telephone [facility] Victorina Jordan MD Lab Result Notice [place] XXX NO INFO FOUND [address] [facility] XXX [place], [place] XXX [address] [place] [address] Social History Tobacco Use Types Packs/Day Years Used Date Smoking Tobacco: Never Alcohol Use Standard Drinks/Week Comments Yes 0 (1 standard drink = 0.6 oz pure alcoho l) occasionally Sex Assigned at Date Recorded Not on file documented as of this encounter Miscellaneous Notes Telephone Encounter - 12/10/2002 11:59 PM CDT >> MARYLU ROBERTSON TueDec 10, 2002 2:59 PM LM when we get the results we will let her know! Sarah Robertson ORACLE BPM CONSULTANT >> FILIBERTO BARRON TueDec 10, 2002 2:19 PM >> CALL RECEIVED. Contact: >> FILIBERTO BARRON TueDec 10, 2002 2:17 PM Staff Message copied by FILIBERTO BARRON on 12/10/2002 at 2:17 PM ------ Message from: SUNIL VELOZ Created: 12/10/2002 at 1:46 PM Regarding: MD CALL PT RE LAB RESULTS FROM LAST WED. EEG RESULTS [id number] documented in this encounter Plan of Treatment Not on filedocumented as of this encounter Visit Diagnoses Not on filedocumented in this encounter Care Teams Complaint Evaluation Supervisor Relationship Specialty Start Date End Date Mohit Najera PA-C PCP - General 09/25/02 04/08/14 [address] [place] [address] documented as of this encounter
--- OUTSIDE RECORDS SUMMARY | 2022-03-02 16:10 | XMS_ITS | Encounter Summary ---
:1970 Author Organization [facility] Address [address] [place] [address]. [place] [address] Care Team Providers Name Role Phone Mohit Najera PA-C Primary Care Provider [phone] Reason for Visit Reason Comments Results MD Caty Neri results of test s done at [facility] Encounter Details Date Type Department Care Team Description 02/22/2003 Telephone [facility] Gill Jordan M D Results (MD Caty Neri [facility] [place] XXX NO INFO FOUND results of tests done [address] [facility] XXX at [place], [place] XXX Neuro) [address] [place] [address] Social History Tobacco Use Types Packs/Day Years Used Date Smoking Tobacco: Never Alcohol Use Standard Drinks/Week Comments Yes 0 (1 standard drink = 0.6 oz pure alcoho l) occasionally Sex Assigned at Date Recorded Not on file documented as of this encounter Miscellaneous Notes Telephone Encounter - 02/22/2003 11:59 PM CDT >> KAT CROFT Fri Feb 22, 2003 3:00 PM >> CALL RECEIVED. Contact: Pt calling for results of tests from [facility]. Was told Dr Jordan should have them by today. I see no records of such records. Advised pt to call [facility] for f/u. VUS. Charissa Croft RN documented in this encounter Plan of Treatment Not on filedocumented as of this encounter Visit Diagnoses Not on filedocumented in this encounter Care Teams Dermatology Procedural Physician Relationship Specialty Start Date End Date Mohit Najera PA-C PCP - General 09/25/02 04/08/14 [address] [place] [address] documented as of this encounter
--- OUTSIDE RECORDS SUMMARY | 2022-03-02 16:10 | XMS_ITS | Encounter Summary ---
:1970 Author Organization [facility] Address [address] [place] [address]. 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 Simon Jordan MD [place] [address] Referral ID Status Reason Start Date Expiration Date Visits Requ ested Visits Authorized [id number] Closed 11/29/2002 05/08/2011 1 1 - Closed Specialty Diagnoses / Procedures Referred By Contact Refer red To Contact Diagnoses Benign neoplasm of skin, site unspecified Simon Jordan MD [place] [address] Referral ID Status Reason Start Date Expiration Date Visits Requ ested Visits Authorized [id number] Closed 11/29/2002 05/08/2011 1 1 Reason for Visit Reason Comments Physical physical & pap Encounter Details Date Type Department Care Team Description 11/29/2002 Office Visit [facility] Simon Jordan M D ROUTINE MEDICAL EXAM (Primary Dx); [facility] [place] NO INFO FOUND BENIGN NEOPLASM SKIN NOS; [id number] [facility] XXX GEN NONCONVUL EPI W/O MENTN INTRAC; [place], [place] PROLAPSE OF VAGINAL WALL [address] [place] [address] Social History Tobacco Use Types Packs/Day Years Used Date Smoking Tobacco: Never Alcohol Use Standard Drinks/Week Comments Yes 0 (1 standard drink = 0.6 oz pure alcoho l) occasionally Sex Assigned at Date Recorded Not on file documented as of this encounter Last Filed Vital Signs Vital Sign Reading Time Taken Comments Blood Pressure 122/76 11/29/2002 11:15 AM CDT Pulse - - Temperature - - Respiratory Rate - - Oxygen Saturation - - Inhaled Oxygen Concentration - - Weight 85.3 kg (188 lb) 11/29/2002 11:15 AM CDT Height 165.7 cm (5' 5.25) 11/29/2002 11:15 AM CDT Body Mass Index 31.05 11/29/2002 11:15 AM CDT documented in this encounter Progress Notes 11/29/2002 11:15 AM CDT SUBJECTIVE: CC: Coretta Frank is a 31 year old female who presents for PE/PAP. HPI: head thing b lanking out and aware of it knows she has to wait to resume conversation; mole eval, lead level; rect ovaginal pocket HISTORIES: There is no problem list on file for this patient. Review of patient's past medical history indicates: ABN GLUCOSE-ANTEPARTUM Review of patient's past surgical history indicates: NONSPECIFIC PROCEDURE 1997 Comment: NVD Current prescriptions: NO ACTIVE MEDICATIONS . Review of patient's allerg ies indicates: No Known Drug * Social History Marital Status: Spouse Name: Years of Education: Number of children: Social Histo ry Main Topics Tobacco Use: Never Alcohol Use: Yes Comment: occasionally D rug Use: No Sexually Active: Yes Partners with: Male Control/Pr otection: Condom Other Topics Concern None on file Social History Narrative None on file Review of patient's family history indicates: Arthritis Mother Respiratory Paternal Grandfather Comment: lung ca Heart Paternal Grandmother Comment: of mi Neurological Mot her Comment: lupus Depression Mother Alco hol/Drug Mother HEALTH MAINTENANCE: LAST MAMMOGRAM : none LAST PAP.: 01/07 REVIEW OF OUTSIDE RECORDS: Yes - review of paper chart and fu rther abstraction completed. ROS: CONSTITUTIONAL: NEGATIVE EYES: NEGATIVE ENT/MOUTH: NEGATIVE RESP: NEGATIVE CV: NEGATIVE GI: NEGATIVE : NEGATIVE MUSCULOSKELETAL: NEGATIVE INTEGUMENTARY/SKIN: mole ch alex BREAST: NEGATIVE NEURO: Hx migraines ENDOCRINE: NEGATIVE HEME/ALLERGY/IMMUNE: NEGATIVE PSYCHIATRI C: NEGATIVE EXAM: BP 122/76 Ht 5' 5.25 (1.657m) Wt 188 lbs (85.276 kg) LMP 11/18/2002 GENER AL APPEARANCE: healthy, alert, no distress and cooperative EYES: corneas clear, conjunctivae and scle carlos normal, lids and lashes normal, pupils equal, round, reactive to light and accomodation and visua l brennan normal to confrontation HENT: TM's pearly lagunas, normal light reflex bilateral, oral mucous membranes moist and oropharynx clear NECK: no adenopathy, no asymmetry, masses, or scars, throid nor mal to palpation and trachea midlineand normal to palpation RESP: clear to auscultation and percuss ion CV: regular rate and rhythm, no murmur, monica or rub BREAST: nl supraclavicular and axillary l ymph nodes, breasts without abnormal lumps or skin changes LYMPH: no lymphadenopathy, no hepatosplen omegaly. GI: bowel sounds normal, liver span normal to percussion, no bruits heard, no masses palpab le, no organomegaly, no renal abnormalities palpable, no scars, striae, dilated veins, rashes, or les ions, soft, non-tender, spleen non- palpable, symmetric and umbilicus normal : normal external prem souleymane, vaginal montiel and cervix; thin prep pap is obtained; normal bimanualexam without masses or te nderness, mild rectocele on rectovaginal exam MS: No varicosities. Good peripheral pulses., Extremit ies normal. No deformaties, edema or skin discoloration. SKIN: R jawline, R thigh, abdo & back numer ous moles prob benign NEURO: cranial nerves 2-12 grossly intact, sensory and motor exams normal and non-focal PSYCH: well-dressed, nl mentation, nl affect ASSESSMENT/PLAN: V70.0 ROUTINE MEDICAL EX AM (primary encounter diagnosis) Note: dtr high lead Plan: A THIN LAYER PAP SCREEN, A.M.A. LIPID MOORE EL, GLUCOSE, HGB, TD IMMUNIZATION,IM/JET, UA MICRO IF POSITIVE, LEAD, BLOOD (PB) Recommended low-fat, high fiber diet, regular exercise, weight reduction, monthly self-breast exams, follow-up pending studies. Return to clinic in one year for annual exam, otherwise as needed. 216. 9 BENIGN NEOPLASM SKIN NOS Note: R jawline, R thigh, abdo & back Plan: CONSULT DERMATOLOGY 345.00 GEN NONCONVUL EPI W/O MENTN INTRAC Note: head thing spells Plan: METRO SEND OUT - NEURO, TSH W/FREE T4 REFLEX 618.0 PROLAPSE OF VAGINAL WALL Note: mild, but affecting elimination Plan: C ONSULT COLON/RECTAL SURG documented in this encounter Nursing Notes 11/29/2002 11:15 AM CDT >> NUNO CORTEZ 11/29/2002 11:28 am 31 yo female pe & pap last pap 01/2001- wnls lmp 11/18/2002 last Td: ? Amy Cortez RN documented in this encounter Plan of Treatment Not on filedocumented as of this encounter Procedures Procedure Name Priority Date/Time Associated Comments Diagnosis ZZ CONSULT Routine 12/03/2003 Prolapse Of Vaginal COLON/RECTAL SURG Wall ZZ CONSULT Routine 11/26/2003 Benign Neoplasm DERMATOLOGY Skin Nos HCL HEMOGLOBIN NONLAB Routine 11/29/2002 12:24 Routine Medical Results for this PM CDT Exam procedure are i n the results section. HCL TSH W/FREE T4 Routine 11/29/2002 12:24 Gen Nonconvul Epi R esults for this REFLEX PM CDT W/O Mentn Intrac procedure a re in the results section. HCL GLUCOSE Routine 11/29/2002 12:24 Routine Medical Results for this PM CDT Exam procedure are i n the results section. ZZCL AFF LEAD, BLOOD Routine 11/29/2002 12:24 Routine Medical Results for this (PB) PM CDT Exam procedure are i n the results section. CL AFF A.M.A. LIPID Routine 11/29/2002 12:24 Routine Medical R esults for this PANEL PM CDT Exam procedure are i n the results section. HCL UA MICRO IF Routine 11/29/2002 11:56 Routine Medical Resul ts for this POSITIVE AM CDT Exam procedure are i n the results section. HCL PAP THIN LAYER Routine 11/29/2002 12:00 Routine Medical Re sults for this SCREEN AM CDT Exam procedure are i n the results section. documented in this encounter Results CONSULT COLON/RECTAL SURG (12/03/2003) Narrative This result has an attachment that is no t available. Simon Jordan MD REFERRAL CONSULT DERMATOLOGY (11/26/2003) Narrative This result has an attachment that is no t available. Simon Jordan MD REFERRAL LEAD, BLOOD (PB) (11/29/2002 12:24 PM CDT) Patholo gist Method Time Signature Lead Whole VENOUS [place] blood (Note) [facility] Specimen NORMAL(UNEXPOSED POPULATION): CLINIC LAB CHILDREN AND ADULTS ? <10 ug/dl EXPOSED: ??CHILDREN (0-6 YEARS) ?>10 ug/d l ADULTS (OCCUPATIONAL EXPOSURE) OSHA ACTION LEVEL ? 40 ug/dl ELIZABEHT (BIOLOGICAL EXPOSURE INDEX) ?? 30 ug/dl (SAMPLING TIME NOT CRITICAL) BAT (BIOLOGICAL TOLERANCE VALUE) ??70 ug/dl (SAMPLING TIME NOT CRITICAL) TOXIC: ?CHILDREN (0-6 YEARS) ?>70 ug/ dl ADULTS ?>80 ug/dl Analysis performed by [employer] [facility] [address] [place] [address] LAB Lead 1 [facility] LAB Comment: Unit: ug/dl Specimen Anatomical Collection Method Collection Time Receive d Time (Source) Location / / Volume Laterality 11/29/2002 12:24 11/29/2002 PM CDT 12:25 PM CDT Simon Jordan MD LABORATORY Performing Organization Address City/State/ZIP Code Phon e Number [facility] [id number] [place] [address] [facility] TSH W/FREE T4 REFLEX (11/29/2002 12:24 PM CDT) P athologist Signature TSH 1.10 0.4 - 5.0 [place] mU/L [facility] Specimen Anatomical Collection Method Collection Time Receive d Time (Source) Location / / Volume Laterality 11/29/2002 12:24 11/29/2002 PM CDT 12:25 PM CDT Simon Jordan MD LABORATORY Performing Organization Address City/[facility]/ZIP Code Phon e Number [facility] [address] [place] [address] [facility] HGB (11/29/2002 12:24 PM CDT) athologist Signature Hemoglobin 14.4 11.7 - 15.7 [place] g/dL [facility] LAB Specimen Anatomical Collection Method Collection Time Receive d Time (Source) Location / / Volume Laterality 11/29/2002 12:24 11/29/2002 PM CDT 12:25 PM CDT Simon Jordan MD LABORATORY Performing Organization Address City/[facility]/ZIP Code Phon e Number [facility] [id number] [place] [address] [facility] GLUCOSE (11/29/2002 12:24 PM CDT) athologist Signature Glucose 82 60 - 115 [facility] mg/dL [facility] Specimen Anatomical Collection Method Collection Time Receive d Time (Source) Location / / Volume Laterality 11/29/2002 12:24 11/29/2002 PM CDT 12:25 PM CDT Simon Jordan MD LABORATORY Performing Organization Address City/[facility]/ZIP Code Phon e Number [place] [phone] [place] [address] [facility] (ABNORMAL) A.M.A. LIPID PANEL (11/29/2002 12:24 PM CDT) athologist Signature Cholesterol 173 <200 mg/dL [facility] LAB Comment: Cholesterol Reference Range: <200 ??The NCEP recommends further ? evaluation of: ? 1. ??Patients with cholesterol ? greater than 200 mg/dL ? if additional risk facto rs ? are present. ? 2. ??All patients with a ? cholesterol greater than ? 240 mg/dL. Triglycerides 54 <150 mg/dL [facility] HDL Cholesterol 39 (L) >40 mg/dL [facility] LDL Cholesterol Calculated 123 <130 mg/dL [facility] VLDL-Cholesterol 11 0 - 30 mg/dL [facility] LAB Cholesterol/HDL Ratio 4 0 - 5 [facility] Specimen Anatomical Collection Method Collection Time Receive d Time (Source) Location / / Volume Laterality 11/29/2002 12:24 11/29/2002 PM CDT 12:25 PM CDT Simon Jordan MD LABORATORY Performing Organization Address City/[facility] Code Phon e Number [address] [address] [facility] (ABNORMAL) UA MICRO IF POSITIVE (11/29/2002 11:56 AM CDT) [facility] gist Method Time Signature Color Urine Yellow [facility] Appearance Urine Clear [facility] Glucose Urine Negative NEG mg/dL [facility] Bilirubin Urine Negative NEG [facility] Ketones Urine Trace (A) NEG mg/dL [facility] Specific [place] 1.025 1.001 - [place] Urine 1.035 [facility] Blood Urine Negative NEG [facility] pH Urine 6.0 5.0 - 7.0 [place] pH [facility] Protein Albumin Negative NEG mg/dL [place] Urine [facility] Urobilinogen 0.2 0.2 - 1.0 [place] Urine EU/dL [facility] Nitrite Urine Negative NEG [facility] Leukocyte Negative NEG [place] Esterase Urine [facility] Source Midstream [place] Urine [facility] Specimen Anatomical Collection Method Collection Time Receive d Time (Source) Location / / Volume Laterality 11/29/2002 11:56 11/29/2002 AM CDT 11:57 AM CDT Simon Jordan MD LABORATORY Performing Organization Address City/State/ZIP Code Phon e Number [facility] [address] [place] [address] [facility] A THIN LAYER PAP SCREEN (11/29/2002 12:00 AM CDT) Component Value Ref Test Analysis Performed At [facility] Range Method Time Signature Copath Report Patient Name: CORETTA FRANK MR#: [id number] Specimen #: [id number] Collected: 11/29/02 Received: 12/03/02 Reported: 12/05/02 14:08 Ordering Phy(s): SIMON JORDAN SPECIMEN/STAIN PROCESS: Pap thin layer prep screening ? Pap-Cyto x 1, Reflex HPV x 1 SOURCE: Cervical, endocervical ---- Pap thin layer prep screening SPECIMEN ADEQUACY: Satisfactory for evaluation. -Transitional zone component present. CYTOLOGIC INTERPRETATION: Negative for Intraepithelial Lesion or Malignancy Electronically signed out by: DIPTI Apodaca (ASCP) Processed and screened at [facility] CLINICAL HISTORY: LMP: 11/18/02 Previous normal pap, Specimen (Source) Anatomical Collection Method Collection Time Re ceived Time Location / / Volume Laterality 11/29/2002 12/03/2002 12:3 7 PM CDT Simon Jordan MD LABORATORY Performing Organization Address City/State/ZIP Code Phon e Betty WILLIAMSON documented in this encounter Visit Diagnoses Diagnosis Routine general medical examination at a health care facility - Primary Benign neoplasm of skin, site unspecifie d 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
--- OUTSIDE RECORDS SUMMARY | 2022-03-02 16:10 | XMS_ITS | Encounter Summary ---
:1970 Author Organization [facility] Address [address] [place] [address]. [place] [address] Care Team Providers Name Role Phone Mohit Najera PA-C Primary Care Provider [phone] Reason for Visit Reason Comments Referral MD - Colon & rectal surgeons Encounter Details Date Type Department Care Team Description 10/15/2003 Telephone [facility] Gill Jordan M D Referral (MD - [facility] [place] NO INFO FOUND rectal surgeons) [address] [facility] [place] [address] [place] [address] Social History Tobacco Use Types Packs/Day Years Used Date Smoking Tobacco: Never Alcohol Use Standard Drinks/Week Comments Yes 0 (1 standard drink = 0.6 oz pure alcoho l) occasionally Sex Assigned at Date Recorded Not on file documented as of this encounter Miscellaneous Notes Telephone Encounter - 10/15/2003 11:59 PM CDT >> LATASHA Flores Oct 15, 2003 5:06 PM I talked to Colon/Rectal surgeions and they want to know if Dr Jordan wants a consult or order some testing since it take awhile to get testing done. They faxed some info on scheduling criteria for [facility]. Dr Jordan, Please come and talk to referrals about this. (Latasha in referrals) >> KAT Flores Oct 15, 2003 12:00 PM >> CALL RECEIVED. Contact: #[phone] Pt called colon and rectal surgeons today to attempt to schedule consult/work up. [facility] Rect[facility] Sur[facility] told her she needs to have us call there. They would not schedule for her. Please call pia johnson notify pt. 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 Kat Acuna RN documented in this encounter Plan of Treatment Not on filedocumented as of this encounter Visit Diagnoses Not on filedocumented in this encounter Care Teams Learning And Development Officer Relationship Specialty Start Date End Date Mohit Najera PA-C PCP - General 09/25/02 04/08/14 [address] [place] [address] documented as of this encounter
--- OUTSIDE RECORDS SUMMARY | 2022-03-02 16:10 | XMS_ITS | Encounter Summary ---
:1970 Author Organization [facility] Address [address] [place] [address]. [place] [address] Care Team Providers Name Role Phone Mohit Najera PA-C Primary Care Provider Encounter Details Date Type Department Care Team Description 12/05/2002 Orders Only [facility] Gill Jordan M D ERRONEOUS Clinic [place] NO INFO FOUND ENCOUNTER--DISREGARD [address] [facility] XXX (Primary Dx) [place] [address] [place] [address] Social History Tobacco Use Types Packs/Day Years [...] Primary documented in this encounter Care Teams Low Vision Therapist Relationship Specialty Start Date End Date Mohit Najera PA-C PCP - General 09/25/02 04/08/14 [address] [place], [place] [id number] documented as of this encounter
--- OUTSIDE RECORDS SUMMARY | 2022-03-02 16:10 | XMS_ITS | Encounter Summary ---
:1970 Author Organization [facility] Address [address] [place] [address]. [place] [address] Care Team Providers Name Role Phone Mohit Najera PA-C Primary Care Provider [phone] Encounter Details Date Type Department Care Team Description 12/05/2002 Orders Only [facility] Gill Jordan M D GEN NONCONVUL EPI W/O Clinic [place] NO INFO FOUND MENTN INTRAC (Primary [address] [facility] XXX Dx) [place] [address] [place] [address] Social History Tobacco Use Types Packs/Day Years Used Date Smoking Tobacco: Never Alcohol Use Standard Drinks/Week Comments Yes 0 (1 standard drink = 0.6 oz pure alcoho l) occasionally Sex Assigned at Date Recorded Not on file documented as of this encounter Plan of Treatment Not on filedocumented as of this encounter Procedures Procedure Name Priority Date/Time Associated Diagnosis Comme nts METRO SEND OUT - NEURO Routine 12/05/2002 Gen Nonconvul Epi W/O Results for this Mentn Intrac procedure are i n the results section . documented in this encounter Results METRO SEND OUT - NEURO (12/05/2002) Anatomical Region Laterality Modality Other Impressions 12/05/2002 00:00 ?? EEG-[facility] ?? SAMUEL MENDEZ () ??[Entered: ?? Accounting Manager Assistant Controller (HIM)] EEG# [id number] DATE OF EXAM: 12/05/02 TEST TYPE: EEG TIME: 08:30am APPLICATION USED: Cap LAST MEAL: snacks prior to testing LAST SEIZURE: HANDEDNESS ??Right ORDERING PHYSICIAN: Gill Jordan ?? PHOTIC STIMULATION: X HV: X CONDITION OF PATIENT: 24 hours of sleep deprivation STATE OF CONSCIOUSNESS: Awake, drowsy, s leep, well oriented. REASON FOR TEST: Frequent spells of blan mario out . States she misses parts of conversations and is silvina etimes slow to respond when being spoken to. ??R/O seizures. PATIENT HISTORY: ?? Patient had frequent spells of blanking out , missing parts of conversation, and appea ring slow to respond. Rule out seizures. MEDICATIONS: EEG SUMMARY: ?? This is a 16-channel sle ep-deprived EEG with 1- channel of EKG. ??The record opens with the patient in drowsy state and shows background rhythm of 6 to 7 Hz chau quency that occasionally slows down into the delta range. ??In th e awake state the record shows well-regulated posterior dominant rhythm of 10 to 11 Hz frequency that is reactive to eye opening. ??There are intermittent non-specific bursts of high amplitude discharges of 5 to 6 Hz f requency lasting for 12 seconds. On photic stimulation patients symmetric al driving in the mid-frequency ranges. ??At 16 cycles per second photic stimulation there is a burst of high amplitude slow discharges of 6 to 7 Hz frequency diffusely in all channels. ??A similar burst is noted at 20 cycles per second stimulation too. ??Patient falls asleep after photic stimulation and occasional vertex waves and diffuse slowing in the theta a nd delta range is noted. During hyperventilation multiple intermi ttent episodes of diffuse bursts of high amplitude are noted and s ome of these episodes have 3 Hz spike and wave configuration. ??Intermit tent diffuse bursts of high amplitude sharp wave discharges continue in the post-hyperventilation phase. ??Patient achieved stage [address] age 1 of sleep with multiple vertex waves and K-complexes. ??Intermittent sh rasheeda waves are also noted diffusely over all channels during sleep . ??There is an episode of 10 second duration of 3 Hz spike and wave a ctivity during sleep on page [phone]. ??Intermittent spike and wave disch arges throughout the sleep are also noted. ??A significantly dysrhythmi c background during this sleep recording. ??EKG shows normal sinus rhyt hm throughout the recording. IMPRESSION: ?? This is a severely abnorm al EEG showing multiple episodes of diffuse burst along with occ asional episodes of 3 Hz spike and wave activity. ??There is a 10 secon d long spike and wave discharge seizure noted during sleep. ??This is co nsistent with absence seizures. Clinical correlation is recommended. SAMUEL MENDEZ MD MT: Patient Document: ??[id number] Test Performed by: tonya LCN: [address] ??[address] Name: MRN: Account Number #: : AGE: STEPH FRANK [id number] 1970 ELECTROENCEPHALOGRAM REPORT Electronically filed by Latasha Wilkes ??12/20/2002 ??4:14 PM Narrative This result has an attachment that is no t available. 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
--- OUTSIDE RECORDS SUMMARY | 2022-03-02 16:10 | XMS_ITS | Encounter Summary ---
:1970 Author Organization [facility] Address [address] [place] [address] Care Team Providers Name Role Phone Mohit Najera PA-C Primary Care Provider [phone] Reason for Visit Reason Comments Physical pap Encounter Details Date Type Department Care Team Description [facility]2003 [facility] (Primary Dx); [facility] [place] NO INFO FOUND CONVULSIONS, OTHER [id number] [facility] [place], [place] XXX [address] [place] [address] Social History Tobacco Use Types Packs/Day Years Used Date Smoking Tobacco: Never Alcohol Use Standard Drinks/Week Comments Yes 0 (1 standard drink = 0.6 oz pure alcoho l) occasionally Sex Assigned at Date Recorded Not on file documented as of this encounter Last Filed Vital Signs Vital Sign Reading Time Taken Comments Blood Pressure 110/70 12/25/2003 1:24 PM CDT Pulse - - Temperature - - Respiratory Rate - - Oxygen Saturation - - Inhaled Oxygen Concentration - - Weight 77.1 kg (170 lb) 12/25/2003 1:24 PM CDT Height 165.7 cm (5' 5.25) 12/25/2003 1:24 PM CDT Body Mass Index 28.07 12/25/2003 1:24 PM CDT documented in this encounter Progress Notes 12/25/2003 1:00 PM CDT SUBJECTIVE: CC: Stephtato Frank is a 33 year old female who presents for PE/pap HPI: f/u spells, skin, rectal prob. 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 Review of the patient's allergies finds: No Known Drug Allergies Social History Marital Status: Spouse Name: Years of Education: Number of children: Social History Main Topics Tobacco Use: Never Alcohol Use: Yes Comment: occasionally Drug Use: No Sexually Active: Yes Partners with: Male Control/Protection: Condom Other Topics Concern None on file Social History Narrative None on file Review of patient's family history indicates: Arthritis Mother Respiratory Paternal Grandfather Comment: lung ca Heart Paternal Grandmother Comment: of mi Neurological Mother Comment: lupus Depression Mother Alcohol/Drug Mother HEALTH MAINTENANCE: REVIEW OF OUTSIDE RECORDS: NO Review Of Systems Skin: negative Eyes: negative Ears/Nose/Throat: negative Respiratory: negative Cardiovascular: negative Gastrointestinal: negative Genitourinary: negative Musculoskeletal: negative Neurologic: seizures Psychiatric: negative Hematologic/Lymphatic/Immunologic: negative Endocrine: negative BP 110/70 Ht 5' 5.25 (1.66m) Wt 170 lbs (77.1kg) LMP 12/03/2003 EXAM: GENERAL APPEARANCE: healthy, alert, no distress and cooperative EYES: corneas clear, conjunctivae and sclerae normal, lids and lashes normal, pupils equal, round, reactive to light and accomodation and visual brennan normal to confrontation HENT: TM's pearly lagunas, normal light reflex bilateral, oral mucous membranes moist and oropharynx clear NECK: no adenopathy, no asymmetry, masses, or scars, throid normal to palpation and trachea midlineand normal to palpation RESP: clear to auscultation and percussion CV: regular rate and rhythm, no murmur, monica or rub BREAST: nl supraclavicular and axillary lymph nodes, breasts without abnormal lumps or skin changes LYMPH: no lymphadenopathy, no hepatosplenomegaly. GI: normal active bowel sounds, soft, non-tender, without masses or hepatosplenomegaly. : normal external genitalia, vaginal montiel and cervix; thin prep pap is obtained; normal bimanualexam without masses or tenderness MS: No varicosities. Good peripheral pulses. Extremities normal. No deformaties, edema or skin discoloration. SKIN: no suspicious lesions NEURO: cranial nerves 2-12 grossly intact, sensory and motor exams normal and non-focal PSYCH: well-dressed, nl mentation, nl affect ASSESSMENT/PLAN V70.0 ROUTINE MEDICAL EXAM (primary encounter diagnosis) Note: Plan: A THIN LAYER PAP SCREEN using condoms 780.39 CONVULSIONS, OTHER Note: Plan: TOPAMAX 100 MG OR TABS I have discussed with patient the risks, benefits, medications, treatment options and modalities. I have instructed the patient to call or schedule a follow-up appointment if any problems or failure to improve. documented in this encounter Nursing Notes 12/25/2003 1:00 PM CDT >> AMAN SILVA 12/25/03 1:27 pm Setph Frank presents for non-fasting physical with pap. Last pap and Td 11/29/02. Discuss exam from [facility]. Initial BP 110/70 Ht 5' 5.25 (1.66m) Wt 170 lbs (77.1kg) LMP 12/03/2003 completed using BP cuff size: regular. MONTRELL Wheat documented in this encounter Plan of Treatment Not on filedocumented as of this encounter Procedures Procedure Name Priority Date/Time Associated Diagnosis Comme nts HCL PAP THIN LAYER Routine 12/25/2003 12:00 AM Routine Medical Exam Results for this SCREEN CDT procedure are i n the results section. documented in this encounter Results A THIN LAYER PAP SCREEN (12/25/2003 12:00 AM CDT) Component Value Ref Test Analysis Performed At [facility] Range Method Time Signature Copath Report Patient Name: STEPH FRANK MR#: [id number] Specimen #: [id number] Collected: 12/25/2003 Received: 12/26/2003 Reported: 12/31/2003 10:30 Ordering Phy(s): SIMON JORDAN SPECIMEN/STAIN PROCESS: Pap thin layer prep screening ? Pap-Cyto x 1, Reflex HPV x 1 SOURCE: Cervical, endocervical ---- Pap thin layer prep screening SPECIMEN ADEQUACY: Satisfactory for evaluation. -Transitional zone component absent. CYTOLOGIC INTERPRETATION: Negative for Intraepithelial Lesion or Malignancy Electronically signed out by: DIPTI Apodaca (ASCP) Processed and screened at [facility] CLINICAL HISTORY: LMP: 12-03-03 Previous normal pap: 11-29-02, Specimen (Source) Anatomical Collection Method Collection Time Re ceived Time Location / / Volume Laterality 12/25/2003 12/26/2003 8:20 AM CDT Simon Jordan MD LABORATORY Performing Organization Address City/State/ZIP Code Phon e Number COPATH documented in this encounter Visit Diagnoses Diagnosis Routine general medical examination at a health care facility - Primary CONVULSIONS, OTHER Other convulsions documented in this encounter Care Teams Family Practice Physician Relationship Specialty Start Date End Date Mohit Najera PA-C PCP - General 09/25/02 04/08/14 [address] [place] [address] documented as of this encounter
[2022-03-02 20:25] LABS: Albumin* 4.4 g/dL (3.3-5.0); Chloride* 108 mmol/L (96-114); Potassium* 4.4 mmol/L (3.6-5.1); Sodium* 141 mmol/L (135-149)
[2022-03-02 20:27] LABS: Bilirubin Total* 0.3 mg/dL (0.1-1.5); Carbon Dioxide* 25 mmol/L (20-32); Estimated Glomerular Filt Rate 67 ml/min
[2022-03-02 20:28] LABS: Alanine Aminotransferase* 15 U/L (4-35); Alkaline Phosphatase* 86 U/L (40-150); Aspartate Amino Transferase* 26 U/L (12-35); Blood Urea Nitrogen* 13 mg/dL (7-30); Calcium* 8.1 mg/dL (8.4-10.6); Glucose* 82 mg/dL (60-115)
[2022-03-02 21:03] LABS: Ferritin* 96.8 ng/mL (11.1-264.0)
[2022-03-02 21:20] LABS: Vitamin B12* 842 pg/mL (243-894)
[2022-03-02 21:55] LABS: Free T4 Free Thyroxine* 1.41 ng/dL (0.70-1.85)
== END 2022-03-02 16:00 | disposition home or self-care (01) ==
PROVIDERS: PCP Family Medicine; Visit Provider Family Medicine
DX: Z01.419 Encounter for gynecological examination (general) (routine) without abnormal findings (principal); E89.0 Postprocedural hypothyroidism; R53.83 Other fatigue; E55.9 Vitamin D deficiency, unspecified
CPT/HCPCS: 80053; 82607; 82728; 84439; 84443

== ENCOUNTER 2022-12-24 07:36 | Outpatient (CLI) | payer OTHER, SELFPAY | END 2022-12-24 07:37 | disposition home or self-care (01) | LOC: NFLDREF 12-29 10:37 | PROVIDERS: PCP Family Medicine; Referring Provider Family Medicine; Visit Provider Family Medicine | DX: Z00.00 Encounter for general adult medical examination without abnormal findings (principal); D64.9 Anemia, unspecified; G25.81 Restless legs syndrome; R53.83 Other fatigue; E03.9 Hypothyroidism, unspecified; E78.5 Hyperlipidemia, unspecified | CPT/HCPCS: 80053; 80061; 82728; 84439; 84443 ==

== ENCOUNTER 2023-01-04 18:12 | Outpatient (CLI) | payer OTHER, SELFPAY ==
--- NOTE | 2023-01-04 18:30 | CRLHL7_ITS ---
For Patients: As a result of the Cures Act, medical imaging exams and procedure reports are released immediately into your electronic medical record. You may view this report before your referring provider. If you have questions, please contact your health care provider. BILATERAL SCREENING MAMMOGRAM WITH COMPUTER-AIDED DETECTION AND TOMOSYNTHESIS TECHNIQUE: CC and MLO views were obtained. These mammographic images have been obtained using full-field digital technique. These mammographic images were interpreted with the benefit of computer-aided detection. Breast Tomosynthesis was used in this interpretation. COMPARISON FILM: 11/26/21, 11/07/20, 11/06/19. FINDINGS: There are scattered areas of fibroglandular density IMPRESSION: There is no radiographic evidence for malignancy. ASSESSMENT: BI-RADS Category 1: Negative RECOMMENDATION: Routine screening mammogram in 1 year. A lay language report of this examination will be provided to the patient. Remigio Saeed M.D. Diagnostic Radiologist [email or web address] RITA/dasha Transcribed: 2:59 p.mIsaias lou/Dictated by: Remigio Saeed MD @ 01/05/2023 12:01:00 PM (Electronically Signed)
== END 2023-01-04 18:13 | disposition home or self-care (01) ==
LOC: MAMMO 18:13
PROVIDERS: PCP Family Medicine; Visit Provider Family Medicine
DX: Z12.31 Encounter for screening mammogram for malignant neoplasm of breast (principal)
CPT/HCPCS: 77063; 77067

== ENCOUNTER 2023-06-15 07:23 | Outpatient (CLI) | payer BC, SELFPAY ==
--- OUTSIDE RECORDS SUMMARY | 2023-06-15 14:00 | XMS_ITS | Referral Summary ---
Author Name Unknown Organization [facility] Address [address] [place] [address] Care Team Providers Care Formula Weigher Name Role Phone Nicolasa Hadley MD Primary Care Provider + Allergies Active Allergy Reactions Criticality Noted Date Comments Betamethasone Cramps 06/04/2019 Severe Stomach cramps Corticosteroids Rash Low 02/21/2019 Turned bright red all over body Green Tea [place] Ext Rash Low 02/21/2019 Burning rash Naproxen Rash Low 02/21/2019 rash Nickel Rash Low 02/21/2019 Burning rash Medications Medication Sig Dispensed Refills Start Date End Date Status TOPAMAX 100 MG OR TABSIndications:Oth er convulsions 1 TABLET TWICE DAILY 600 0 11/22/2005 Active VITAMIN D PO Take 1 tablet by mouth daily 0 Active Cyanocobalamin (VITAMIN B-12 PO) Take 1 tablet by mouth daily 0 Active Fexofenadine HCl (DANISHA ALLERGY PO) Take 180 mg by mouth daily as needed 0 Active gabapentin (NEURONTIN) 100 MG capsule 300 mg nightly as needed 11 01/19/2019 Active SUMAtriptan (IMITREX) 100 MG tablet TAKE 1 TAB ONCE NEEDED FOR MIGRAINE FOR UP TO 1 DOSE. MAY REPEAT 1 X AFTER 2 HOURS IF NEEDED. 5 12/27/2018 Active docusate sodium (COLACE) 100 MG capsule Take 100 mg by mouth nightly as needed for constipation 0 Active calcium carbonate 500 mg, elemental, (OSCAL 500) 1250 (500 Ca) MG TABS tabletIndications:S /P total thyroidectomy Take 2 tablets (1,000 mg) by mouth every 8 hours See discharge summary for taper schedule. 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 Provider to review Immunizations Name Administration Dates Next Due TD,PF 7+ (Tenivac) 11/29/2002 Twinrix A/B 11/26/2005,10/29/2005 Typhoid IM 10/29/2005 Social History Tobacco Use Types Packs/Day Years Used Date Smoking Tobacco: Never Smokeless Tobacco: Never Tobacco Cessation:Counseling Given: Yes Alcohol Use Standard Drinks/Week Comments Yes 0 (1 standard drink = 0.6 oz pur e alcohol) occasionally Adolescent Education Answer Date Record ed Getting School Help Needed Not on file 02/12 Sex and Gender Information Value Date Recorded Sex Assigned at Not on file Gender Identity Female 09/05/2019 11:24 AM CDT Sexual Orientation Straight 09/05/2019 11 :24 AM CDT Last Filed Vital Signs Vital Sign Reading Time Taken Comments Blood Pressure 114/78 06/13/2019 3:22 PM TRANSPORTATION PLANNING ENGINEER Pulse 83 06/13/2019 3:22 PM TRANSPORTATION PLANNING ENGINEER Temperature 36.7 ??C (98 ??F) 06/06/2019 7:39 AM TRANSPORTATION PLANNING ENGINEER Respiratory Rate 16 06/13/2019 3:22 PM TRANSPORTATION PLANNING ENGINEER Oxygen Saturation 100% 06/13/2019 3:22 PM TRANSPORTATION PLANNING ENGINEER Inhaled Oxygen Concentration - - Weight 76.7 kg (169 lb) 06/13/2019 3:22 PM TRANSPORTATION PLANNING ENGINEER Height 162.6 cm (5' 4) 06/13/2019 3:22 PM TRANSPORTATION PLANNING ENGINEER Body Mass Index 29.01 06/13/2019 3:22 PM TRANSPORTATION PLANNING ENGINEER Plan of Treatment Not on file Advance Directives For more information, please contact: [phone] Latest Code Status on File Code Status Date Activated Date Inactivated Comments Full Code 06/05/2019 1:07 PM 06/06/2019 12:54 PM Post -op Question Answer Comments Code status determined by: Other (please documen t) Care Teams Formula Weigher Relationship Specialty Start Date End Date Nicolasa Hadley MD [facility] [address] [place] [address] PCP - General Family Practice 04/18/19
--- OUTSIDE RECORDS SUMMARY | 2023-06-15 14:00 | XMS_ITS | Clinical Summary ---
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 Provider to review Immunizations Name Administration Dates Next Due TD,PF 7+ (Tenivac) 11/29/2002 Twinrix A/B 11/26/2005,10/29/2005 Typhoid IM 10/29/2005 Family History Medical History Relation Comments Allergies Daughter Significant gene ralized rxn to bug bites. Diabetes Father Borderline DM. Hypertension Father Alcohol/Drug Mother Arthritis Mother OA Depression Mother Heart Disease Mother Congenital valve abnormality requiring surgery Neurologic Disorder Mother lupus Respiratory [...] Comments Blood Pressure 114/78 06/13/2019 3:22 PM SOILS ENGINEER Pulse 83 06/13/2019 3:22 PM SOILS ENGINEER Temperature 36.7 ??C (98 ??F) 06/06/2019 7:39 AM SOILS ENGINEER Respiratory Rate 16 06/13/2019 3:22 PM SOILS ENGINEER Oxygen Saturation 100% 06/13/2019 3:22 PM SOILS ENGINEER Inhaled Oxygen Concentration - - Weight 76.7 kg (169 lb) 06/13/2019 3:22 PM SOILS ENGINEER Height 162.6 cm (5' 4) 06/13/2019 3:22 PM SOILS ENGINEER Body Mass Index 29.01 06/13/2019 3:22 PM SOILS ENGINEER Plan of Treatment Health Maintenance Due Date Last Done Comments ADVANCE CARE PLANNING 1970 ANNUAL REVIEW OF HM ORDERS 1968 CT COLONOGRAPHY 1968 FIT 1970 FLEX SIG 1970 MAMMO SCREENING 1968 sDNA (Cologuard) 1970 COVID-19 Vaccine (#1) 06/15/1969 COLONOSCOPY 1978 COLORECTAL CANCER SCREENING 1978 HIV SCREENING 12/14/1983 HEPATITIS C SCREENING 1986 DTAP/TDAP/TD IMMUNIZATION (1 - Tdap) 05/10/2003 05/09/2003, 11/29/2002, 11/29/2002 HEPATITIS B IMMUNIZATION (3 of 3 - Hep B Twinrix 3-dose series) 04/30/2006 11/26/2005, 10/29/2005 YEARLY PREVENTIVE VISIT 08/17/2006 08/18/19 06, 12/29/2004, 12/25/2003, Additional history exists PAP 04/02/2011 04/02/2008, 08/07, 12/29/2004, Additional history exists ZOSTER IMMUNIZATION (1 of 2) 2018 TSH W/FREE T4 REFLEX 09/20/2019 09/19/2018, 11/30/19 03 GLUCOSE 06/06/2022 06/06/2019, 09/06, 08/17/2005, Additional history exists INFLUENZA VACCINE (#1) 2023 PHQ-2 (once per calendar year) 2023 LIPID 09/20/2023 09/19/2018, 0807/2004, 11/29/2002 HPV IMMUNIZATION Aged Out No longer e ligible based on patient's age to complete this topic IPV IMMUNIZATION Aged Out No longer e ligible based on patient's age to complete this topic MENINGITIS IMMUNIZATION Aged Out No l onger eligible based on patient's age to complete this topic Pneumococcal Vaccine: Pediatrics (0 to 5 Years) and At-Risk Patients (6 to 64 Years) Aged Out No longer eligible based on patient's age to complete this topic RSV MONOCLONAL ANTIBODY Aged Out No l onger eligible based on patient's age to complete this topic Advance Directives For more information, please contact: [phone] Latest Code Status on File Code Status Date Activated Date Inactivated Comments Full Code 06/05/2019 1:07 PM 06/06/2019 12:54 PM Post -op Question Answer Comments Code status determined by: Other (please documen t) Care Teams Mine Administrator Supervisor Relationship Specialty Start Date End Date Nicolasa Hadley MD [facility] [address] [place] [address] PCP - General Family Practice 04/18/19
== END 2023-06-15 07:24 | disposition home or self-care (01) ==
LOC: NFLDREF 13:59
PROVIDERS: PCP Family Medicine; Referring Provider Family Medicine; Visit Provider Family Medicine
DX: E89.0 Postprocedural hypothyroidism (principal); R53.83 Other fatigue
CPT/HCPCS: 84439; 84443

== ENCOUNTER 2024-04-02 11:54 | Emergency (ER) | payer BC, SELFPAY ==
[2024-04-02 12:18] VITALS: BP 102/62; PULSE 67; RESP 24; TEMP 36.5; O2SAT 98; BMI 27.4
--- NOTE | 2024-04-02 12:27 | CRLHL7_ITS ---
For Patients: As a result of the Century Cures Act, medical imaging exams and procedure reports are released immediately into your electronic medical record. You may view this report before your referring provider. If you have questions, please contact your health care provider. Indication: Fall causing injury to the left ankle Technique: Left ankle 3 views. Comparison: None. Findings/impression: No acute fracture or dislocation. Plantar calcaneal enthesophyte. No significant degenerative disease. Minimal soft tissue swelling of the ankle. Dictated by Helga Dias MD @ 04/02/2024 1:10:05 PM (Electronically Signed)
--- OUTSIDE RECORDS SUMMARY | 2024-04-02 13:03 | XMS_ITS | Clinical Summary ---
Author Organization [facility] Address [address] [place] [address] Care Team Providers Care Cloth Carrier Name Role Phone Nicolasa Hadley MD Primary Care Provider + Allergies Active Allergy Reactions Criticality Noted Date Comments Betamethasone Cramps 06/04/2019 Severe Stomach cramps Corticosteroids Rash Low 02/21/2019 Turned bright red all over body Green Tea [place] Ext Rash Low 02/21/2019 Burning rash Naproxen Rash Low 02/21/2019 rash Nickel Rash Low 02/21/2019 Burning rash Medications TOPAMAX 100 MG OR TABSIndications:O ther convulsions 1 TABLET TWICE DAILY 600 0 11/23/19 06 Active VITAMIN D PO Take 1 tablet by mouth daily Active Cyanocobalamin (VITAMIN B-12 PO) Take 1 tablet by mouth daily Active Fexofenadine HCl (DANISHA ALLERGY PO) Take 180 mg by mouth daily as needed Active gabapentin (NEURONTIN) 100 MG capsule 300 mg nightly as needed 11 01/20/20 19 Active SUMAtriptan (IMITREX) 100 MG tablet TAKE 1 TAB ONCE NEEDED FOR MIGRAINE FOR UP TO 1 DOSE. MAY REPEAT 1 X AFTER 2 HOURS IF NEEDED. 5 12/28/19 19 Active docusate sodium (COLACE) 100 MG capsule Take 100 mg by mouth nightly as needed for constipation Active calcium carbonate 500 mg, elemental, (OSCAL 500) 1250 (500 Ca) MG TABS tabletIndications :S/P total thyroidectomy Take 2 tablets (1,000 mg) by mouth every 8 hours See discharge summary for taper schedule. 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 [...] School Help Needed Not on file 02/12 Comments No Sex and Gender Information Value Date Recorded Sex Assigned at Not on file Legal Sex Female 3:34 AM DIRECTOR FEDERAL Gender Identity Female 09/05/2019 11:24 AM CDT Sexual Orientation Straight 09/05/2019 11 :24 AM CDT Last Filed Vital Signs Vital Sign Reading Time Taken Comments Blood Pressure 114/78 06/13/2019 3:22 PM DIRECTOR FEDERAL Pulse 83 06/13/2019 3:22 PM DIRECTOR FEDERAL Temperature 36.7 C (98 F) 06/06/2019 7:39 AM DIRECTOR FEDERAL Respiratory Rate 16 06/13/2019 3:22 PM DIRECTOR FEDERAL Oxygen Saturation 100% 06/13/2019 3:22 PM DIRECTOR FEDERAL Inhaled Oxygen Concentration - - Weight 76.7 kg (169 lb) 06/13/2019 3:22 PM DIRECTOR FEDERAL Height 162.6 cm (5' 4) 06/13/2019 3:22 PM DIRECTOR FEDERAL Body Mass Index 29.01 06/13/2019 3:22 PM DIRECTOR FEDERAL Plan of Treatment Not on file Insurance [employer] Advance Directives For more information, please contact: [phone] * Full Code (Latest Code Status on File) Date Activated Date Inactivated Comments 06/05/2019 1:07 PM 06/06/2019 12:54 PM Post-op Question Answer Comments Code status determined by: Other (please documen t) Care Teams Cloth Carrier Relationship Specialty Start Date End Date Nicolasa Hadley MD [facility] [address] [place] [address] PCP - General Family Practice 04/18/19
--- OUTSIDE RECORDS SUMMARY | 2024-04-02 13:04 | XMS_ITS | Referral Summary ---
Author Organization [facility] Address [address] [place] [address] Care Team Providers Care Emr Specialist Name Role Phone Nicolasa Hadley MD Primary Care Provider + Allergies Active Allergy Reactions Criticality Noted Date Comments Betamethasone Cramps 06/04/2019 Severe Stomach cramps Corticosteroids Rash Low 02/21/2019 Turned bright red all over body Green Tea [place] Ext Rash Low 02/21/2019 Burning rash Naproxen [...] (04/18/2019): Added automatically from request for surgery [id number] Convulsions 12/25/2003 Overview (02/06/2015): Dx'd age 32, [...] on file Legal Sex Female 3:34 AM LEGAL EXECUTIVE ASSISTANT Gender Identity Female 09/05/2019 11:24 AM CDT Sexual Orientation Straight 09/05/2019 11 :24 AM CDT Last Filed Vital Signs Vital Sign Reading Time Taken Comments Blood Pressure 114/78 06/13/2019 3:22 PM LEGAL EXECUTIVE ASSISTANT Pulse 83 06/13/2019 3:22 PM LEGAL EXECUTIVE ASSISTANT Temperature 36.7 C (98 F) 06/06/2019 7:39 AM LEGAL EXECUTIVE ASSISTANT Respiratory Rate 16 06/13/2019 3:22 PM LEGAL EXECUTIVE ASSISTANT Oxygen Saturation 100% 06/13/2019 3:22 PM LEGAL EXECUTIVE ASSISTANT Inhaled Oxygen Concentration - - Weight 76.7 kg (169 lb) 06/13/2019 3:22 PM LEGAL EXECUTIVE ASSISTANT Height 162.6 cm (5' 4) 06/13/2019 3:22 PM LEGAL EXECUTIVE ASSISTANT Body Mass Index 29.01 06/13/2019 3:22 PM LEGAL EXECUTIVE ASSISTANT Plan of Treatment Not on file Insurance [employer] Advance Directives For more information, please contact: [phone] * Full Code (Latest Code Status on File) Date Activated Date Inactivated Comments 06/05/2019 1:07 PM 06/06/2019 12:54 PM Post-op Question Answer Comments Code status determined by: Other (please documen t) Care Teams Emr Specialist Relationship Specialty Start Date End Date Nicolasa Hadley MD [facility] [address] [address] PCP - General Family Practice 04/18/19
--- NOTE | 2024-04-02 13:29 | ED_ITS ---
HPI - General Adult General Chief complaint: Extremity Pain/Injury, Lower Stated complaint: fall - ankle injury Time Seen by Provider: 04/02/24 12:35 Source: patient Mode of arrival: ambulatory Limitations: no limitations History of Present Illness HPI narrative: 53-year-old female presenting today with left ankle pain. Patient states that she lost her footing and stepped off a stool and rolled her ankle. She has pain over the lateral left ankle. Denies any other injury. She was able to walk right afterwards. 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 Related Data Home Medications ?Medication ?Instructions ?Recorded ?Confirmed diphenhydramine HCl 25 mg capsule 25 mg PO QDAY PRN 12/30/21 04/02/24 (Allergy (diphenhydramine)) sumatriptan succinate 100 mg tablet 100 mg PO PRN 12/30/21 12/28/22 topiramate 100 mg tablet 100 mg PO BID 12/30/21 04/02/24 vitamin B complex 1 cap PO QDAY 12/30/21 04/02/24 docusate sodium 100 mg capsule mg PO PRN 09/30/22 12/28/22 Previous Rx's ?Medication ?Instructions ?Recorded cholecalciferol (vitamin D3) 25 25 mcg PO QDAY #90 caps 12/28/22 mcg (1,000 unit) capsule levothyroxine 112 mcg tablet 112 mcg PO QDAY #90 tabs 02/01/24 fluoxetine 40 mg capsule 40 mg PO QDAY #90 caps 02/06/24 Allergies Allergy/AdvReac Type Severity Reaction Status Date / Time naproxen Allergy Intermediate Rash Verified 04/02/24 12:25 nickel Allergy Intermediate states Verified 04/02/24 12:25 burning of the skin, loss of skin betamethasone Allergy Mild states Verified 04/02/24 12:25 severe stomach cramps Green Tea [place] Ext Allergy Intermediate Rash Uncoded 12/28/22 07:26 Corticosteroids and Allergy Unknown states Uncoded 12/28/22 07:26 derivatives turned bright red all over body Review of Systems Status of ROS: Reports: 6 or more systems reviewed and unremarkable except as noted in History and below [facility] Medical History Dyslipidemia ?E78.5 - Hyperlipidemia, unspecified (ICD-10) Constipation, chronic (05/18/11) ?K59.09 - Other constipation (ICD-10) Subcutaneous mass ?R22.9 - Localized swelling, mass and lump, unspecified (ICD-10) Restless legs syndrome ?G25.81 - Restless legs syndrome (ICD-10) Rectocele (06/15/10) ?N81.6 - Rectocele (ICD-10) Postoperative hypothyroidism (05/2019) ?E89.0 - Postprocedural hypothyroidism (ICD-10) Hot tub folliculitis ?L73.8 - Other specified follicular disorders (ICD-10) History of rectal bleeding (2015) ?Z87.19 - Personal history of other diseases of the digestive system (ICD-10) Class 1 obesity ?E66.9 - Obesity, unspecified (ICD-10) Surgical History Vaginal adhesions (06/30/11) ?N89.5 - Stricture and atresia of vagina (ICD-10) History of vaginal hysterectomy (2010) ?Z90.710 - Acquired absence of both cervix and uterus (ICD-10) History of thyroidectomy (06/05/19) ?E89.0 - Postprocedural hypothyroidism (ICD-10) Frozen shoulder (2008) ?M75.00 - Adhesive capsulitis of unspecified shoulder (ICD-10) Family History Father Diabetes Sister Rheumatoid arthritis Mother Systemic lupus erythematosus Lung cancer Other Colonic polyp Social History Narrative: , 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[employer], 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 Exercises regularly- yoga 3 times a week, walks 3 miles daily with dog Non-smoker Rarely consumes alcohol What is your current living situation?: I presently have a place to live Problems where you live: no known problems In the past 12 months, utilities in danger of being shut off: no In the past 12 mos, have been you worried that your food would run out before you had money to buy more?: never true In the past 12 mos, the food you bought just didn't last and you didn't have money to buy more?: never true Smoking Status: Never smoker How often does anyone, including family, friends and others, physically hurt you : never How often does anyone, including family, friends and others, insult or talk down to you: never How often does anyone, including family, friends and others, threaten you with harm: never How often does anyone, including family, friends and others, scream or curse at you: never Exam Narrative: Exam Narrative: Well-nourished well-developed patient in no acute distress. Alert and oriented. Answers questions appropriately. Mood and affect are appropriate. Thoughts are goal oriented and rational. No tangential or magical thinking noted. Patient speaks in full sentences without needing to catch her breath. HEENT: Normocephalic atraumatic. Extraocular muscles are intact. Conjunctivae are moist without any icterus noted. Moist mucous membranes. Extremities: Patient has swelling over the lateral ankle. She has no acute tenderness over the medial or lateral malleoli. She has no tenderness to palpation of the remainder of the foot. There is no broken skin. Const: Vital Signs, click to edit/add: Vital Signs - 24 hr 04/02/24 12:18 Temperature 97.7 F Pulse Rate [Pulse Oximeter] 67 Respiratory Rate 24 Blood Pressure [Le ft Upper Arm] 102/62 Pulse Oximetry 98 Oxygen Delivery Me thod Room Air Course Course ED Course: Ankle x-ray, read by me, does not show any acute fractures. Vital Signs Vital signs: Initial Vital Signs Temperature 97.7 F 04/02/24 12:18 Temperature Source Temporal Artery Scan 04/02/24 12:18 Pulse Rate 67 04/02/24 12:18 Respiratory Rate 24 04/02/24 12:18 Blood Pressure 102/62 04/02/24 12:18 Blood Pressure Mean 75 04/02/24 12:18 Blood Pressure Position Sitting 04/02/24 12:18 Pulse Oximetry 98 04/02/24 12:18 Oxygen Delivery Method Room Air 04/02/24 12:18 Vital Signs Temperature 97.7 F 04/02/24 12:18 Pulse Rate 67 04/02/24 12:18 Respiratory Rate 24 04/02/24 12:18 Blood Pressure 102/62 04/02/24 12:18 Pulse Oximetry 98 04/02/24 12:18 Oxygen Delivery Method Room Air 04/02/24 12:18 Temperature 97.7 F 04/02/24 12:18 Pulse Rate 67 04/02/24 12:18 Respiratory Rate 24 04/02/24 12:18 Blood Pressure 102/62 04/02/24 12:18 Pulse Oximetry 98 04/02/24 12:18 Oxygen Delivery Method Room Air 04/02/24 12:18 Medical Decision Making MDM Narrative Medical decision making narrative: 53-year-old female with an ankle sprain. We discussed symptomatic treatment and reasons for follow-up. Imaging Data Ankle x-ray: Attestation: I have reviewed the pertinent imaging results. Radiologist's impression: TECHNIQUE: Left ankle three views. COMPARISON: None. FINDINGS: No acute fracture or dislocation. Plantar calcaneal enthesophyte. No additional osseous abnormality. Soft tissues as imaged are unremarkable. IMPRESSION: No acute osseous abnormality. Discharge Plan Discharge Clinical Impression: Ankle sprain Instructions: Ankle Sprain (DC) Additional Instructions: Follow-up with your primary care provider if you are not noticing improvement over the next week. Prescriptions: No Action sumatriptan succinate 100 mg tablet 100 mg PO PRN Rx Instructions: 0.5 or 1 tab at start of headache; may repeat once in 2 hours; use no more than two days a week topiramate 100 mg tablet 100 mg PO BID diphenhydramine HCl [Allergy (diphenhydramine)] 25 mg capsule 25 mg PO QDAY PRN vitamin B complex Capsule 1 cap PO QDAY docusate sodium 100 mg capsule PO PRN cholecalciferol (vitamin D3) 25 mcg (1,000 unit) capsule 25 mcg PO QDAY Qty: 90 4RF levothyroxine 112 mcg tablet 112 mcg PO QDAY Qty: 90 0RF fluoxetine 40 mg capsule 40 mg PO QDAY Qty: 90 0RF Follow Up/Referrals: Nicolasa Hadley MD [Primary Care Provider] - Stand Alone Forms: [employer] Info Instructions
--- NOTE | 2024-04-02 13:52 | ED.NURSE ---
Patient found heath wrap too painful to tolerate but patient shown how to use and sent with one to take home.
== END 2024-04-02 13:54 | disposition home or self-care (01) ==
PROVIDERS: Emergency Provider Family Medicine; PCP Family Medicine
DX: S93.402A Sprain of unspecified ligament of left ankle, initial encounter (principal)
CPT/HCPCS: 73610; 99283; 99284

== ENCOUNTER 2024-06-07 08:02 | Outpatient (CLI) | payer BC, SELFPAY | END 2024-06-07 08:03 | disposition home or self-care (01) | LOC: NFLDREF 06-11 03:04 | PROVIDERS: PCP Family Medicine; Referring Provider Family Medicine; Visit Provider Family Medicine | DX: E78.5 Hyperlipidemia, unspecified (principal); E55.9 Vitamin D deficiency, unspecified; E89.0 Postprocedural hypothyroidism; M81.0 Age-related osteoporosis without current pathological fracture; R53.83 Other fatigue; E66.9 Obesity, unspecified; Z13.9 Encounter for screening, unspecified | CPT/HCPCS: 80053; 80061; 82306; 84439; 84443 ==

== ENCOUNTER 2024-08-06 07:38 | Outpatient (CLI) | payer BC, SELFPAY | END 2024-08-06 07:39 | disposition home or self-care (01) | LOC: NFLDREF 19:51 | PROVIDERS: PCP Family Medicine; Referring Provider Family Medicine; Visit Provider Family Medicine | DX: E89.0 Postprocedural hypothyroidism (principal); R53.83 Other fatigue; G25.81 Restless legs syndrome | CPT/HCPCS: 80053; 82607; 82728; 84439; 84443 ==

== ENCOUNTER 2024-08-13 10:50 | Emergency (ER) | payer BC, SELFPAY ==
[2024-08-13] VITALS (17 sets, daily range): BP systolic 104–122; BP diastolic 65–77; PULSE 51–61; RESP 16; TEMP 36.3; O2SAT 75–100; BMI 27.4
--- OUTSIDE RECORDS SUMMARY | 2024-08-13 10:53 | XMS_ITS | Clinical Summary ---
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 Provider to review Immunizations Name Administration Dates Next Due Hepatitis A/B (Twinrix) 11/26/2005,10/29/2005 TD,PF 7+ (Tenivac) 11/29/2002 Typhoid IM 10/29/2005 Family History Medical History [...] on file Legal Sex Female 3:34 AM VP ACCOUNT DIRECTOR Gender Identity Female 09/05/2019 11:24 AM CDT Sexual Orientation Straight 09/05/2019 11 :24 AM CDT Last Filed Vital Signs Vital Sign Reading Time Taken Comments Blood Pressure 114/78 06/13/2019 3:22 PM VP [employer]OUNT DIRECTOR Pulse 83 06/13/2019 3:22 PM VP ACCOUNT DIRECTOR Temperature 36.7 C (98 F) 06/06/2019 7:39 AM VP ACCOUNT DIRECTOR Respiratory Rate 16 06/13/2019 3:22 PM VP ACCOUNT DIRECTOR Oxygen Saturation 100% 06/13/2019 3:22 PM VP ACCOUNT DIRECTOR Inhaled Oxygen Concentration - - Weight 76.7 kg (169 lb) 06/13/2019 3:22 PM VP ACCOUNT DIRECTOR Height 162.6 cm (5' 4) 06/13/2019 3:22 PM VP ACCOUNT DIRECTOR Body Mass Index 29.01 06/13/2019 3:22 PM VP ACCOUNT DIRECTOR Plan of Treatment Not on file Insurance [employer] Advance Directives For more information, please contact: [phone] * Full Code (Latest Code Status on File) Date Activated Date Inactivated Comments 06/05/2019 1:07 PM 06/06/2019 12:54 PM Post-op Question Answer Comments Code status determined by: Other (please docochoa t) Care Teams Rn Patient Services Relationship Specialty Start Date End Date Nicolasa Hadley MD [facility] [address] [place] [address] PCP - General Family Practice 04/18/19
--- NOTE | 2024-08-13 11:13 | ED.GENADULT ---
HPI - General Adult General Date Seen: 08/13/24 Chief complaint: Back Injury/Pain Stated complaint: back pain/low pulse and blood pressure Time Seen by Provider: 08/13/24 11:13 History of Present Illness HPI narrative: 53-year-old female presenting to the ER today with pain in her low back and right flank. 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 Per medical record she has a past medical history of dyslipidemia, situational anxiety, elevated BMI, restless legs syndrome, simple partial seizures, migraine headaches, chronic hearing loss, depression. She presents to the ER today by private car, accompanied by her father. She notes that she started to feel little bit ill on Tuesday, 2 days ago with a mild sore throat, left earache and also fever blister on her mouth. She has felt a little bit run down. She does not usually get an objectively high temperature but sometimes gets some mouth sores when she is sick. This morning when she got up she was brushing her teeth and started to have onset of pain in her low back/right flank that radiated around into the right lower quadrant. She got dizzy and lightheaded and had to sit down on the bathroom floor with while brushing. Started to feel better, her pain went away. She is able to go to work. 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 She is at school teaching this morning when she had recurrence of pain in her low back and right flank and again felt dizzy and lightheaded. She was checked out by the school nurse who told her that her pulse rate was low and that her blood pressure was also low. She does not recall what numbers her blood pressure was. Now that she is here in the ER her pulse is in the 50s and she says that is low for her. Her blood pressure is 122/77 and she is not know if that is higher or lower than what her school nurse measured. She still having right flank pain. She is no longer feeling dizzy. No fever. She has had previous cholecystectomy. She has not had any history of kidney stones. Related Data Home Medications ?Medication ?Instructions ?Recorded ?Confirmed diphenhydramine HCl 25 mg capsule 25 mg PO QDAY PRN 12/30/21 08/07/24 (Allergy (diphenhydramine)) sumatriptan succinate 100 mg tablet 100 mg PO PRN 12/30/21 08/07/24 vitamin B complex 1 cap PO QDAY 12/30/21 08/13/24 docusate sodium 100 mg capsule mg PO PRN 09/30/22 08/07/24 Previous Rx's ?Medication ?Instructions ?Recorded cholecalciferol (vitamin D3) 25 25 mcg PO QDAY #90 caps 12/28/22 mcg (1,000 unit) capsule gabapentin 100 mg capsule 100 mg PO DAILY #90 caps 06/08/24 levothyroxine 112 mcg tablet 112 mcg PO QDAY #90 tabs 06/08/24 topiramate 100 mg tablet 100 mg PO BID #180 tabs 07/03/24 fluoxetine 40 mg capsule 40 mg PO QDAY #90 caps 08/07/24 hydrocodone 5 mg-acetaminophen 325 1 tab PO Q4-6H PRN pain #14 tabs 08/13/24 mg tablet ondansetron 4 mg disintegrating 4 mg PO Q8H PRN nausea and 08/13/24 tablet vomiting #10 tabs tamsulosin 0.4 mg capsule (Flomax) 0.4 mg PO DAILY #7 caps 08/13/24 Allergies Allergy/AdvReac Type Severity Reaction Status Date / Time naproxen Allergy Intermediate Rash Verified 08/07/24 15:29 nickel Allergy Intermediate states Verified 08/07/24 15:29 burning of the skin, loss of skin betamethasone Allergy Mild states Verified 08/07/24 15:29 severe stomach cramps Green Tea [place] Ext Allergy Intermediate Rash Uncoded 08/07/24 15:29 Corticosteroids and Allergy Unknown states Uncoded 08/07/24 15:29 derivatives turned bright red all over body [facility] Medical History Dyslipidemia ?E78.5 - Hyperlipidemia, unspecified (ICD-10) Constipation, chronic (05/18/11) ?K59.09 - Other constipation (ICD-10) Subcutaneous mass ?R22.9 - Localized swelling, mass and lump, unspecified (ICD-10) Restless legs syndrome ?G25.81 - Restless legs syndrome (ICD-10) Rectocele (06/15/10) ?N81.6 - Rectocele (ICD-10) Postoperative hypothyroidism (05/2019) ?E89.0 - Postprocedural hypothyroidism (ICD-10) Hot tub folliculitis ?L73.8 - Other specified follicular disorders (ICD-10) History of rectal bleeding (2015) ?Z87.19 - Personal history of other diseases of the digestive system (ICD-10) Class 1 obesity ?E66.9 - Obesity, unspecified (ICD-10) Surgical History Vaginal adhesions (06/30/11) ?N89.5 - Stricture and atresia of vagina (ICD-10) History of vaginal hysterectomy (2010) ?Z90.710 - Acquired absence of both cervix and uterus (ICD-10) History of thyroidectomy (06/05/19) ?E89.0 - Postprocedural hypothyroidism (ICD-10) Frozen shoulder (2008) ?M75.00 - Adhesive capsulitis of unspecified shoulder (ICD-10) Family History Systemic lupus erythematosus Mother Rheumatoid arthritis Sister Diabetes Father Lung cancer Mother Colonic polyp Social History Narrative: , 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[employer], 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 Exercises regularly- yoga 3 times a week, walks 3 miles daily with dog Non-smoker Rarely consumes alcohol What is your current living situation?: I presently have a place to live Problems where you live: no known problems In the past 12 months, utilities in danger of being shut off: no In past 12 months, lack of transportation kept you from medical appts, meetings, work, or getting things needed for daily living: no In the past 12 mos, have been you worried that your food would run out before you had money to buy more?: never true In the past 12 mos, the food you bought just didn't last and you didn't have money to buy more?: never true Smoking Status: Never smoker Non-prescribed substance use: denies use How often does anyone, including family, friends and others, physically hurt you: never How often does anyone, including family, friends and others, insult or talk down to you: never How often does anyone, including family, friends and others, threaten you with harm: never How often does anyone, including family, friends and others, scream or curse at you: never Exam Narrative: Exam Narrative: Constitutional: Appears well-developed and well-nourished. Alert. Conversant but uncomfortable. Non toxic. HENT: Head: Atraumatic. Nose: Nose normal. Mouth/Throat: Oral mucosa is clear and moist. no trismus. Pharynx minimally erythematous. Tonsils symmetric. No tonsillar enlargement or exudate. Eyes: Conjunctivae normal. EOM normal. Pupils equal, round, and reactive to light. No scleral icterus. Neck: Normal range of motion. Neck supple. No tracheal deviation present. Cardiovascular: Normal rate, regular rhythm. No gallop. No friction rub. No murmur heard. Symmetric radial artery pulses Pulmonary/Chest: Effort normal. No stridor. No respiratory distress. No wheezes. No rales. No rhonchi . No tenderness. Abdominal: Soft. Bowel sounds normal. No distension. No mass. No tenderness. No rebound. No guarding. Positive right CVA tenderness. Musculoskeletal: RUE: Normal range of motion. No tenderness. No deformity LUE: Normal range of motion. No tenderness. No deformity RLE: Normal range of motion. No edema. No tenderness. No deformity LLE: Normal range of motion. No edema. No tenderness. No deformity Lymph: No cervical adenopathy. Neurological: Alert and oriented to person, place, and time. Normal strength. CN II-VII intact. No sensory deficit. GCS eye subscore is 4. GCS verbal subscore is 5. GCS motor subscore is 6. Normal coordination Skin: Skin is warm and dry. No rash noted. No pallor. Normal capillary refill. Psychiatric: Normal mood. Normal affect. Const: Vital Signs, click to edit/add: Vital Signs - 24 hr 08/13/24 10:57 08/13/24 11:49 08/13/24 12:01 Temperature 97.4 F L Pulse Rate 54 L 51 L Pulse Rate [Pulse Oximeter] 56 L Respiratory Rate 16 Blood Pressure Blood Pressure [Ri ght Upper Arm] 122/77 Pulse Oximetry 99 99 99 Oxygen Delivery Me thod Room Air 08/13/24 12:02 08/13/24 12:15 08/13/24 12:30 Temperature Pulse Rate 51 L 61 54 L Pulse Rate [Pulse Oximeter] Respiratory Rate Blood Pressure 118/76 Blood Pressure [Ri ght Upper Arm] Pulse Oximetry 99 98 93 Oxygen Delivery Me thod 08/13/24 12:31 Temperature Pulse Rate 54 L Pulse Rate [Pulse Oximeter] Respiratory Rate 16 Blood Pressure Blood Pressure [Ri ght Upper Arm] Pulse Oximetry 99 Oxygen Delivery Me thod Course Vital Signs Vital signs: Initial Vital Signs Temperature 97.4 F L 08/13/24 10:57 Temperature Source Temporal Artery Scan 08/13/24 10:57 Pulse Rate 56 L 08/13/24 10:57 Respiratory Rate 16 08/13/24 10:57 Blood Pressure 122/77 08/13/24 10:57 Blood Pressure Mean 92 08/13/24 10:57 Blood Pressure Position Supine 08/13/24 10:57 Pulse Oximetry 99 08/13/24 10:57 Oxygen Delivery Method Room Air 08/13/24 10:57 Vital Signs Temperature 97.4 F L 08/13/24 10:57 Pulse Rate 56 L 08/13/24 10:57 Respiratory Rate 16 08/13/24 10:57 Blood Pressure 122/77 08/13/24 10:57 Pulse Oximetry 99 08/13/24 10:57 Oxygen Delivery Method Room Air 08/13/24 10:57 Temperature 97.4 F L 08/13/24 10:57 Pulse Rate 54 L 08/13/24 12:31 Respiratory Rate 16 08/13/24 12:31 Blood Pressure 118/76 08/13/24 12:02 Pulse Oximetry 99 08/13/24 12:31 Oxygen Delivery Method Room Air 08/13/24 10:57 Medications Administered Medications: Generic Name Dose Route Start Last Admin Trade Name Freq PRN Reason Stop Dose Admin Hydromorphone HCl 0.5 mg 08/13/24 11:23 08/13/24 12:02 Hydromorphone 0.5 Mg/0.5 Ml Inj IVP 0.5 mg Q1H PRN Administration Pain Discontinued Medications Generic Name Dose Route Start Last Admin Trade Name Freq PRN Reason Stop Dose Admin Sodium Chloride 1,000 mls @ 1,000 mls/hr 08/13/24 11:30 08/13/24 13:23 0.9 % Sodium Chloride 1000 Ml IV 08/13/24 12:29 Infused .Q1H MEETA Infusion Ketorolac Tromethamine 15 mg 08/13/24 11:23 08/13/24 12:03 Ketorolac 15 Mg/Ml Inj IVP 08/13/24 11:24 15 mg ONCE ONE Administration Ondansetron HCl 4 mg 08/13/24 11:23 08/13/24 12:02 Ondansetron 2 Mg/Ml Inj IVP 08/13/24 11:24 4 mg ONCE ONE Administration Medical Decision Making MDM Narrative Medical decision making narrative: This patient presents with dizziness and presyncope associated with right flank pain radiating to her right lower quadrant of her abdomen. In terms of her dizziness I suspect is probably driven by some dehydration and vagal reaction to pain. EKG shows sinus bradycardia but blood pressure is normal throughout her stay here in the ER. White count and hemoglobin are normal. Venous lactic is normal. She has also had subjective fevers for the past couple of days and mild sore throat and left ear pain. Exam is negative for ear infection. Minimal signs of pharyngitis. COVID in flu and strep are negative. Her main symptom was severe right flank/right lower quadrant abdominal pain.Differential Diagnosis considered includes: Ureterolithiasis, UTI, pyelonephritis, AAA, colitis, diverticulitis, volvulus, appendicitis, cholecystitis, [], among others. At this point, the evaluation indicates that ureterolithiasis is the cause of the patient's symptoms. There are no signs that this is an infected stone. The patient's pain is controlled in ED. The patient is hemodynamically stable in ED. I think the patient is safe for discharge. Prescriptions for Jackson, Zofran, Flomax. The plan is discharge to home with recheck by primary care physician . They will return to the ED right away if symptoms worsen (e.g Return immediately for fevers greater than 102, increasing pain, other new symptoms develop). Ureterolithiasis precautions for home. Prescriptions for pain control, nausea control, and flomax were provided. The patient's questions were answered. Lab Data Labs: Lab Results 08/13/24 08/13/24 Range/Units 11:40 11:55 WBC 7.44 (4.50-11.00) K/uL RBC 4.45 (4.00-5.20) m/uL Hgb 14.4 (12.0-16.0) gm/dL Hct 42.8 (33.0-51.0) % MCV 96 (80-100) fL MCH 32 (26-34) pg MCHC 34 (32-36) gm/dL RDW Coeff of Noelle 12.0 (11.5-15.5) % Plt Count 182 (140-440) K/uL Neut % (Auto) 83.5 H (42.0-72.0) % Lymph % (Auto) 12.2 L (20-44) % [place] % (Auto) 3.5 (0.0-11.0) % Eos % (Auto) 0.1 (0.0-7.0) % Baso % (Auto) 0.4 (0.0-3.0) % Neut # (Auto) 6.20 (1.7-7.0) K/uL Lymph # (Auto) 0.90 (0.90-2.90) K/uL [place] # (Auto) 0.30 (0.00-0.90) K/UL Eos # (Auto) 0.01 (0.00-0.50) K/uL Baso # (Auto) 0.03 (0.00-0.30) K/uL Abs Immat Gran (auto) 0.02 (0.00-0.30) K/uL Imm/Tot Granulo (auto) 0.3 % Sodium 139 (135-149) mmol/L Potassium 4.3 (3.6-5.1) mmol/L Chloride 110 (96-114) mmol/L Carbon Dioxide 19 L (20-32) mmol/L Anion Gap 10 (7-15) mEq/L BUN 16 (7-30) mg/dL Creatinine 1.2 (0.5-1.5) mg/dL Estimated Creat Clear 49.59 Estimated GFR 53 ml/min Glucose 135 H (60-115) mg/dL Lactate 1.0 (0.5-1.9) mmol/L Calcium 8.6 (8.4-10.6) mg/dL Lipase 124 (23-300) U/L Urine Color Yellow (Yellow) Urine Appearance Cloudy A (Clear) Urine pH 7.0 (5.0-8.5) Ur Specific [place] 1.020 (1.000-1.030) Urine Protein 1+ A (Negative) Urine Glucose (UA) Negative (Negative) Urine Ketones Trace A (Negative) Urine Blood 3+ A (Negative) Urine Nitrite Negative (Negative) Urine Bilirubin Negative (Negative) Urine Urobilinogen 0.2 (0.2-1.0) Ur Leukocyte Esterase Negative (Negative) Urine RBC 10-25 A (0-2) Urine WBC 0-2 (0-5) Ur Squamous Epith Cells Few (None-Few) Amorphous Sediment Many A (None) Urine Bacteria None (None) SARS-CoV-2 (PCR) Negative SARS-CoV-2 (Negative) Influenza Type A (PCR) Negative PCR FLU A (Negative) Influenza Type B (PCR) Negative PCR FLU B (Negative) Group A Strep DNA NOT DETECTED (Not Detectd) Imaging Data CT scan - abdomen: Attestation: I have reviewed the pertinent imaging results. Radiologist's impression: IMPRESSION: Nephrolithiasis with moderate right hydronephrosis and obstructing stone just above the right ureterovesicular junction measuring 3 x 3 millimeters. ECG Data Attestation: I personally reviewed and interpreted this ECG as follows: Interpretation: Sinus bradycardia Rate: 52 CO: 172 QRS axis: Normal axis. No pathologic Q-waves. Computer notes possible anterior septal infarct but I think this is inaccurate. ST segment/T wave: Nonspecific T-wave flattening. No ST segment elevation or depression. QTc: 466 Discharge Plan Discharge Clinical Impression: Kidney stone Patient Disposition: Home, Self-Care Condition: Stable Instructions: Kidney Stones (ED), Dizziness (ED) Additional Instructions: As we discussed, it may take a few days for your kidney stone to pass. Try to drink enough fluids to stay hydrated and keep urinating normally every couple of hours. To treat the kidney stone pain you can use Tylenol or ibuprofen. Use the prescription pain killer only if needed for pain uncontrolled by other medications. Be careful with Jackson because it can cause dizziness, drowsiness, constipation, and can be addictive. Please return to the ER right away if you have severe uncontrolled pain, uncontrolled nausea vomiting, or if you develop any fever. If you are not completely improved within 5 days, please recheck with your regular doctor or come back to the ER. Prescriptions: New tamsulosin [Flomax] 0.4 mg capsule 0.4 mg PO DAILY Qty: 7 2RF hydrocodone-acetaminophen 5-325 mg tablet 1 tab PO Q4-6H PRN (Reason: pain) Qty: 14 0RF ondansetron 4 mg tablet,disintegrating 4 mg PO Q8H PRN (Reason: nausea and vomiting) Qty: 10 0RF No Action sumatriptan succinate 100 mg tablet 100 mg PO PRN Rx Instructions: 0.5 or 1 tab at start of headache; may repeat once in 2 hours; use no more than two days a week diphenhydramine HCl [Allergy (diphenhydramine)] 25 mg capsule 25 mg PO QDAY PRN vitamin B complex Capsule 1 cap PO QDAY docusate sodium 100 mg capsule PO PRN fluoxetine 40 mg capsule 40 mg PO QDAY Qty: 90 2RF cholecalciferol (vitamin D3) 25 mcg (1,000 unit) capsule 25 mcg PO QDAY Qty: 90 4RF levothyroxine 112 mcg tablet 112 mcg PO QDAY Qty: 90 0RF gabapentin 100 mg capsule 100 mg PO DAILY Qty: 90 3RF topiramate 100 mg tablet 100 mg PO BID Qty: 180 0RF Follow Up/Referrals: Nicolasa Hadley MD [Primary Care Provider] - Stand Alone Forms: [facility], [facility]
--- NOTE | 2024-08-13 11:23 | CRLHL7_ITS ---
For Patients: As a result of the Century Cures Act, medical imaging exams and procedure reports are released immediately into your electronic medical record. You may view this report before your referring provider. If you have questions, please contact your health care provider. INDICATION: Right flank pain TECHNIQUE: Axial images were obtained from the diaphragm to the pubic symphysis. Reformats were obtained in the coronal and sagittal plane. IV Contrast: None Oral Contrast: None COMPARISON: Abdomen and pelvis CT 02/22/2013 FINDINGS: Lower chest: Unremarkable. Liver: Unremarkable. Normal in size and attenuation. No masses. Gallbladder and bile ducts: Status post cholecystectomy. Spleen: Unremarkable. Normal in size without mass. Pancreas: Unremarkable. No mass or inflammation. Adrenal glands: Unremarkable. No nodules. Kidneys: Nephrolithiasis with moderate right hydronephrosis. Obstructing stone just above the right ureterovesicular junction measuring 3 x 3 millimeters. Vasculature: Unremarkable. GI tract: Unremarkable. No dilated bowel or focal inflammation. Unremarkable appendix. Pelvis: Status post hysterectomy. Bones: Sclerotic lesion within the T9 vertebral body. IMPRESSION: Nephrolithiasis with moderate right hydronephrosis and obstructing stone just above the right ureterovesicular junction measuring 3 x 3 millimeters. Please note that all CT scans at this facility use dose modulation, iterative reconstruction, and/or weight-based dosing when appropriate to reduce radiation dose to as low as reasonably achievable. Dictated by Alfredo Fuller MD @ 08/13/2024 12:08:22 PM (Electronically Signed)
[2024-08-13] MEDS: 0.9 % SODIUM CHLORIDE 1000 ml 1,000 ML IV (12:02)
[2024-08-13] MEDS: HYDROmorphone 0.5 mg/0.5 ml inj IVP (12:02)
[2024-08-13] MEDS: ONDANSETRON 2 MG/ML inj 4 MG IVP (12:02)
[2024-08-13] MEDS: KETOROLAC 15 MG/ML inj IVP (12:03)
--- OUTSIDE RECORDS SUMMARY | 2024-08-13 12:03 | XMS_ITS | Clinical Summary ---
Author Organization [facility] Address [address] [place] [id number] Care Team Providers Care Cutter Head Sharpener Name Role Phone Nicolasa Hadley MD Primary Care Provider + Allergies Active Allergy Reactions Criticality Noted Date Comments Betamethasone Cramps 06/04/2019 Severe Stomach cramps Corticosteroids Rash Low 02/21/2019 Turned bright red all over body Green Tea [place] Ext Rash Low 02/21/2019 Burning rash Naproxen [...] (04/18/2019): Added automatically from request for surgery [id number] Convulsions 12/25/2003 Overview (02/06/2015): Dx'd age 32, [...] on file Legal Sex Female 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 Gender Identity Female 09/05/2019 11:24 AM CDT Sexual Orientation Straight 09/05/2019 11 :24 AM CDT Last Filed Vital Signs Vital Sign Reading Time Taken Comments Blood Pressure 114/78 06/13/2019 3:22 PM 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 Pulse 83 06/13/2019 3:22 PM 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 Temperature 36.7 C (98 F) 06/06/2019 7:39 AM 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 Respiratory Rate 16 06/13/2019 3:22 PM 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 Oxygen Saturation 100% 06/13/2019 3:22 PM 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 Inhaled Oxygen Concentration - - Weight 76.7 kg (169 lb) 06/13/2019 3:22 PM 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 Height 162.6 cm (5' 4) 06/13/2019 3:22 PM 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 Body Mass Index 29.01 06/13/2019 3:22 PM 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 Plan of Treatment Not on file Insurance [employer] CHO[employer] Advance Directives For more information, please contact: [phone] * Full Code (Latest Code Status on File) Date Activated Date Inactivated Comments 06/05/2019 1:07 PM 06/06/2019 12:54 PM Post-op Question Answer Comments Code status determined by: Other (please docochoa t) Care Teams Cutter Head Sharpener Relationship Specialty Start Date End Date Nicolasa Hadley MD [facility] [address] [place] [address] PCP - General Family Practice 04/18/19
[2024-08-13 12:11] LABS: Appearance Urine Cloudy (Clear); Bilirubin Urine Negative (Negative); Blood Urine 3+ (Negative); Color Urine Yellow (Yellow); Glucose Urine Negative (Negative); Ketones Urine Trace (Negative); Leukocyte Esterase Urine Negative (Negative); Nitrite Urine Negative (Negative); Protein Urine 1+ (Negative); Urobilinogen Urine 0.2 (0.2-1.0)
[2024-08-13 12:25] LABS: Basophils Absolute Auto 0.03 K/uL (0.00-0.30); Basophils Percent Auto 0.4 % (0.0-3.0); Eosinophils Absolute Auto 0.01 K/uL (0.00-0.50); Eosinophils Percent Auto 0.1 % (0.0-7.0); Hematocrit 42.8 % (33.0-51.0); Hemoglobin* 14.4 gm/dL (12.0-16.0); Immature Granulocytes Abs Auto 0.02 K/uL (0.00-0.30); Immature Granulocytes Pct Auto 0.3 %; Lymphocytes Percent Auto 12.2 % (20-44); Mean Corpuscular HGB Conc 34 gm/dL (32-36); Mean Corpuscular Hemoglobin 32 pg (26-34); Mean Corpuscular Volume 96 fL (80-100); Monocytes Percent Auto 3.5 % (0.0-11.0); Neutrophils Percent Auto 83.5 % (42.0-72.0); Platelet Count* 182 K/uL (140-440); Red Blood Count 4.45 m/uL (4.00-5.20); White Blood Count* 7.44 K/uL (4.50-11.00)
[2024-08-13 12:25] LABS: Amorphous Sediment Urine Many; Squamous Epithelial Cell Urine Few (None-Few); WBC Urine 0-2 (0-5)
[2024-08-13 12:36] LABS: Lipase* 124 U/L (23-300)
[2024-08-13 12:39] LABS: Slide Review Reflex No
[2024-08-13 12:42] LABS: Strep A DNA Probe* NOT DETECTED (Not Detectd)
[2024-08-13 12:56] LABS: PCR FLU A Negative PCR FLU A (Negative); PCR FLU B Negative PCR FLU B (Negative); SARS PCR* Negative SARS-CoV-2 (Negative)
[2024-08-13 13:43] LABS: Chloride* 110 mmol/L (96-114); Potassium* 4.3 mmol/L (3.6-5.1); Sodium* 139 mmol/L (135-149)
[2024-08-13 13:46] LABS: Anion Gap 10 mEq/L (7-15); Blood Urea Nitrogen* 16 mg/dL (7-30); Carbon Dioxide* 19 mmol/L (20-32); Creatinine* 1.2 mg/dL (0.5-1.5); Est. Creatinine Clearance* 49.59; Estimated Glomerular Filt Rate 53 ml/min
[2024-08-13 13:47] LABS: Calcium* 8.6 mg/dL (8.4-10.6); Glucose* 135 mg/dL (60-115)
[2024-08-13] MEDS: HYDROCODONE-ACETAMIN 5-325 MG 1 TAB PO (14:32)
== END 2024-08-13 14:41 | disposition home or self-care (01) ==
PROVIDERS: Emergency Provider Emergency Medicine; PCP Family Medicine
DX: N20.0 Calculus of kidney (principal)
CPT/HCPCS: 36415; 74176; 80048; 81001; 83605; 83690; 85025; 87631; 87651; 93005; 94761; 96374; 96375; 99284; 99285; A9270; J1171; J1885; J2405; J7030

== ENCOUNTER 2024-10-24 09:03 | Outpatient (CLI) | payer BC, SELFPAY | END 2024-10-24 09:04 | disposition home or self-care (01) | LOC: NFLDREF 10-28 02:08 | PROVIDERS: PCP Family Medicine; Referring Provider Family Medicine; Visit Provider Family Medicine | DX: E55.9 Vitamin D deficiency, unspecified (principal); E89.0 Postprocedural hypothyroidism | CPT/HCPCS: 84443 ==

== ENCOUNTER 2024-10-24 11:18 | Outpatient (CLI) | payer BC, SELFPAY ==
--- NOTE | 2024-10-24 11:30 | CRLHL7_ITS ---
For Patients: As a result of the Century Cures Act, medical imaging exams and procedure reports are released immediately into your electronic medical record. You may view this report before your referring provider. If you have questions, please contact your health care provider. INDICATION: BILATERAL SCREENING MAMMOGRAM, ASYMPTOMATIC 53 Y/O FEMALE COMPARISON: 01/04/2023, 11/26/2021, 11/07/2020 TECHNIQUE: Digital mammogram in CC and MLO projections including computer-aided detection (CAD) and tomosynthesis. BREAST COMPOSITION: The breasts are almost entirely fatty. FINDINGS: No suspicious findings. ASSESSMENT: BI-RADS 1 Negative RECOMMENDATION: Annual screening mammogram. A lay language report of this examination will be provided to the patient. Dictated by: Remigio Saeed MD @ 10/25/2024 10:34:40 (Electronically Signed)
== END 2024-10-24 11:19 | disposition home or self-care (01) ==
LOC: MAMMO 11:19
PROVIDERS: PCP Family Medicine; Visit Provider Family Medicine
DX: Z12.31 Encounter for screening mammogram for malignant neoplasm of breast (principal)
CPT/HCPCS: 77063; 77067